=== PATIENT | female | born 1970 | race African-American/Black ===

== ENCOUNTER 2016-04-09 12:36 | Observation (INO) | payer OTHER ==
[2016-04-08 14:48] VITALS: Ht 165.1 cm; Wt 110.0 kg
[~2016-04-09] VITALS: Ht 165.1 cm; Wt 110.0 kg
[2016-04-09] VITALS (23 sets, daily range): BP systolic 121–190; BP diastolic 63–82; PULSE 58–106; RESP 14–33
[~2016-04-09 12:36] MED LIST: CEFAZOLIN 1 GM INJ ONE
[2016-04-09] MEDS ORDERED: SOD CHLORIDE 0.9% 1,000 ML IV ONE (13:30)
[2016-04-09] MEDS ORDERED: CEFAZOLIN 2 GM/50 ML (PMX) 50 ML IVPB ONE (13:30)
[2016-04-09] MEDS ORDERED: CALC300T4 PO (14:05)
[2016-04-09] MEDS ORDERED: DIPH25CA6 PO (14:05)
[2016-04-09 14:32] LABS: BASOPHILS % 0.6 % (0.0-2.0); EOSINOPHILS % 0.4 % (0.0-7.0); HEMATOCRIT 35.9 % (37.0-47.0); LYMPHOCYTES # 1.2 10^3/ul (0.8-2.9); LYMPHOCYTES % 19.8 % (15.0-51.0); MEAN CORPUSCULAR HEMOGLOBIN 28.6 pg (29.0-33.0); MEAN CORPUSCULAR HGB CONC 33.4 g/dl (32.0-37.0); MEAN CORPUSCULAR VOLUME 85.5 fl (82.0-101.0); MEAN PLATELET VOLUME 11.6 fl (7.4-10.4); MONOCYTE # 0.4 10^3/ul (0.3-0.9); MONOCYTES % 6.8 % (0.0-11.0); NEUTROPHIL # 4.4 10^3/ul (1.6-7.5); NEUTROPHILS % 72.4 % (39.0-77.0); PLATELET COUNT 191 10^3/UL (140-440); RED CELL DISTRIBUTION WIDTH 14.7 % (11.5-14.5); UNCORRECTED WBC 6.1 10^3/ul (4.8-10.8); WHITE BLOOD COUNT 6.1 10^3/ul (4.8-10.8)
[2016-04-09 14:39] LABS: CONDITION 1; LH ANALYZER COMMENTS 1
[2016-04-09 15:00] LABS: INR 0.94; PROTIME 12.6 Sec (12.2-14.2)
[2016-04-09 15:01] LABS: PARTIAL THROMBOPLASTIN TIME 30.6 Sec (25.0-35.0)
[2016-04-09 15:17] LABS: CALCIUM 9.6 mg/dl (8.4-10.2); CREATININE 0.88 mg/dl (0.44-1.00); POTASSIUM 4.5 mmol/L (3.5-5.1)
[2016-04-09] MEDS ORDERED: PROPOFOL 40 ML ONE (16:27)
[2016-04-09] MEDS ORDERED: ROCURONIUM 50 MG INJ ONE (16:27)
[2016-04-09] MEDS ORDERED: FENTAnyl 50 MCG/ML VIAL ONE ×3 (16:27→17:27)
[2016-04-09] MEDS ORDERED: MIDAZOLAM 1 MG/ML 2 ML INJ ONE (16:27)
[2016-04-09] MEDS ORDERED: ISOSULFAN BLUE 1% 5 ML INJ SC ONE (16:54)
[2016-04-09] MEDS ORDERED: DEXAMETHASONE 4 MG/ML 1 ML INJ ONE (16:57)
[2016-04-09] MEDS ORDERED: METOCLOPRAMIDE 10 MG INJ ONE (16:57)
[2016-04-09] MEDS ORDERED: ONDANSETRON 4 MG INJ ONE (16:57)
[2016-04-09] MEDS ORDERED: KETOROLAC 30 MG INJ ONE (16:58)
[2016-04-09] MEDS ORDERED: morphine (1 MG/ML) 10ML SYRINGE IV PRN ×3 (17:30)
[2016-04-09] MEDS ORDERED: HYDROmorphONE (0.2 MG/ML) 10ML SYG IV PRN (17:30)
[2016-04-09] MEDS ORDERED: DIPHENHYDRAMINE 50 MG INJ IV PRN ×2 (17:30→23:00)
[2016-04-09] MEDS ORDERED: ONDANSETRON 4 MG INJ IV PRN ×2 (17:30→18:30)
[2016-04-09] MEDS ORDERED: hydrALAzine 20 MG INJ ONE (17:33)
[2016-04-09] MEDS ORDERED: GLYCOPYRROLATE 0.4 MG INJ ONE ×2 (17:58→18:02)
[2016-04-09] MEDS ORDERED: NEOSTIGMINE 3 MG/3 ML SYRINGE ONE ×2 (17:58→18:02)
[2016-04-09] MEDS ORDERED: LABETALOL HCL 20MG INJ ONE (18:02)
[2016-04-09] MEDS ORDERED: NALOXONE (0.4 MG/ML) INJ ONE (18:04)
--- NOTE | 2016-04-09 18:11 | OPR ---
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 PROCEDURE PERFORMED: Left partial mastectomy with axillary dissection utilizing sentinel lymph node technique. SURGEON: González Pineda MD STREET WORKER: Felix Jaquez MD ANESTHESIA: General. ANESTHESIOLOGIST: Rahat Ashley MD INDICATIONS FOR PROCEDURE: The patient is an unfortunate 46-year-old female who presented with an a pproximately 3.5 cm mass in her left breast. Workup including biopsy revealed an invasive cancer. She was HER-2 negative and not a candidate for neoadjuvant chemotherapy. She was then counseled as to the need for immediate surgery. She consented and was scheduled for surgery. DESCRIPTION OF PROCEDURE: The patient was brought to the operating theater, placed under general an esthesia. The left breast and axillary region was prepped and draped in usual sterile fashion. Eleazar roximately 5 mL of 1% Lymphazurin blue dye was then injected peritumorally. The breast was gently m assaged for approximately 12 minutes. At this point, a 4 cm incision was made in the left axillary hairline. Subcutaneous tissue was dissected with cautery down through the clavipectoral fascia. Dy e-stained lymphatic was identified, traced to what appeared to be an enlarged sentinel node. There were additional enlarged lymph nodes in this area. Therefore, Dr. Pineda made the decision to resect additional nodes with the sentinel nodes with blunt dissection along the chest wall. The long thor acic nerve was identified and kept out of harm's way. More superiorly, the axillary vein and thorac odorsal neurovascular bundle were identified and kept out of harm's way. Node bearing tissue betwee n the 2 nerves was then meticulously dissected using the LigaSure device. Specimen was removed and sent for permanent pathologic analysis. The wound was irrigated. Minimal bleeding was controlled w ith cautery. A #10 Austrian Skinny-Balderas drain was then brought through the left mid axillary line, cut to size, laid within the axilla and secured in place with 2-0 nylon suture, and the skin was amaury pproximated with a 4-0 Vicryl suture in subcuticular fashion. Attention was then directed towards performing the partial mastectomy. The mass was palpable. It w as at approximately the 12 o'clock location. An approximately 5 to 6 cm incision was made directly over the large mass. Subcutaneous tissue was dissected with cautery. The skin edges were elevated with skin hooks. Wide circumferential dissection of the tissue associated with the mass then took p lace, taking great care to ensure adequate margin. The mass was elevated, transected, oriented, and sent for permanent pathologic analysis. The wound was then irrigated. Minimal bleeding was contro lled with cautery. Due to the large defect associated with the wound, Dr. Pineda made the decision t o place a drain within the wound cavity. A second drain was brought through the left mid axillary l ine into the wound. It was cut to size and laid within the wound. The drain was then secured in pl elizabeth with 2-0 nylon suture in standard fashion. The skin incision was then reapproximated with 4-0 V icryl suture in subcuticular fashion and Dermabond was applied to both incisions. The patient karen ated the procedure well. The estimated blood loss was 20 mL. There were no complications and the p atient was transported in stable condition to the recovery room. Dictated By: GONZÁLEZ DENNIS/CAYETANO Conf#: [id number] DID#: [id number]
[2016-04-09] MEDS: HYDROmorphONE (0.2 MG/ML) 10ML SYG IV PRN ×4 (18:30→18:51)
[2016-04-09] MEDS: D5W-0.45 NACL + KCL 20 MEQ 1,000 ML IV SCH (20:35)
[2016-04-09] MEDS ORDERED: VITAMIN A & D 5 GM OINT PACKET TOP ONE (20:37)
[2016-04-10] VITALS: BP 118/59; RESP 20
[2016-04-10] MEDS: D5W-0.45 NACL + KCL 20 MEQ 1,000 ML IV SCH ×2 (02:59→10:13)
[2016-04-10] MEDS: morphine 4 MG/ML VIAL IV PRN ×2 (03:00→08:02)
[2016-04-10 05:16] VITALS: BP 123/64; PULSE 63; RESP 18
[2016-04-10 07:46] VITALS: BP 122/64; RESP 18
[2016-04-10] MEDS ORDERED: DOCUSATE SODIUM 100 MG CAP PO SCH (09:00)
[2016-04-10] MEDS ORDERED: HYDROCODONE/APAP (5/325) TAB PO PRN ×2 (09:00)
[2016-04-10] MEDS ORDERED: CEPASTAT LOZENGE MT PRN (09:00)
[2016-04-10] MEDS ORDERED: HYDR-3498 PO (11:47)
--- NOTE | 2016-04-10 14:00 | HP ---
DATE OF ADMISSION: 04/09/2016 HISTORY OF PRESENT ILLNESS: The patient is an unfortunate 46-year-old female who presented with mas s in the left breast. Workup including biopsy revealed invasive cancer. The patient's HER-2 is fou nd to be negative. The patient was brought to the hospital and underwent a left partial mastectomy with axillary dissection utilizing sentinel lymph node technique by Dr. Pineda on 04/09/2016. The pa alondra had significant postoperative pain and was admitted for further evaluation and management to m edical/surgical floor. PAST MEDICAL HISTORY: Positive for a history of asthma. The patient used occasionally the rescue i nhaler after exercising. Currently denies any recent asthma attack. History of arthritis. PAST SURGICAL HISTORY: Status post abdominal hysterectomy and bilateral oophorectomy last year and status post tubal ligation many years ago. FAMILY HISTORY: The patient has a sister with history of breast cancer who was diagnosed at the age of 50. SOCIAL HISTORY: The patient is and lives with family. Denies any tobacco use, denies any a lcohol use, denies any illicit drug use. ALLERGIES: NO KNOWN ALLERGIES. MEDICATIONS ON ADMISSION: 1. Tums. 2. Benadryl p.r.n. for itching. 3. Multivitamins. REVIEW OF SYSTEMS: A 12-point review of systems negative unless what mentioned in the HPI. The pat ient postoperatively complaints of a sore throat and surgical pain at the left breast. PHYSICAL ASSESSMENT: GENERAL: Well-developed, obese, pleasant female in no acute distress. VITAL SIGNS: Temperature 98.5, pulse is 63, blood pressure is 122/64, respiratory rate 18, oxygen s aturation is 98% on room air. HEENT: Head is atraumatic, normocephalic. Pupils equal, round, reactive to light and accommodation . Oral mucosa is pink and moist. NECK: Supple. No cervical lymphadenopathy, no thyromegaly. PULMONARY: Lung sounds: Clear bilaterally. There are no rhonchi, wheezes, or rales noted. CARDIOVASCULAR: Normal S1, S2. No murmurs noted. CHEST: Status post surgery with a left axillary JOSE RAUL drain. ABDOMEN: Protuberant, soft, nondistended, nontender. Bowel sounds present. EXTREMITIES: There is no edema, clubbing, cyanosis. Pulses equal bilaterally 2+. SKIN: No rash, petechiae noted. NEUROLOGIC: The patient is awake, alert, and oriented x4. No focal deficits noted. Motor strength 5/5 in all extremities. LABORATORY DATA: On admission, CBC: White blood cells 6.1, hemoglobin 12.0, hematocrit 35.9, plate lets 191. Chemistry: Sodium is 144, potassium 4.5, chloride 102, carbon dioxide 30, anion gap 17, BUN is 15, creatinine 0.88, glucose 87, calcium 9.6. PT is 12.6, INR 0.94, aPTT is 30.6. ASSESSMENT AND PLAN: 1. Large invasive cancer of the left breast status post left partial mastectomy with axillary disse ction utilizing sentinel lymph node technique. 2. Asthma by history. 3. Arthritis history. The patient will be admitted to medical/surgical floor. Continue morphine and [place] p.r.n. for pain , Zofran p.r.n. for nausea. Will start the patient on Cepastat lozenges p.r.n. for sore throat. Ad [place] diet as patient tolerates. Incentive spirometer q.1 hour while patient is awake, continue seq uential compression device for deep venous thrombosis prophylaxis. Further recommendations based on clinical course. Plan of care discussed with Dr. Rascon. Dictated By: NEYDA JAVIER RESEARCH AND DEVELOPMENT RESEARCHER for THEO RASCON MD SR/NTS Conf#: [id number] DID#: [id number] CC: JANE RAZA MD;*EndCC*
--- NOTE | 2016-04-10 14:09 | PN ---
DATE: 04/10/2016 SUBJECTIVE: she feels okay, has tolerated his diet, has had a bowel movement. OBJECTIVE: VITAL SIGNS: Temperature 98.5, heart rate 63, and one episode of 101, respirations 18, blood pressure 123/64, saturation 99% on room air. ABDOMEN: Soft. J.P. drained 20 mL and 15 mL of serosanguineous fluid. ASSESSMENT: Postoperative cancer of the breast. The patient is feeling good. She is eating well and can be discharged home, to followup by Dr. Pineda in his office next week. Dictated By: GERHARD RUIZ MD PS/NTS Conf#: [id number] DID#: [id number] MTDD
--- NOTE | 2016-04-11 13:56 | DS ---
DATE OF ADMISSION: 04/09/2016 DATE OF DISCHARGE: 04/10/2016 FINAL DIAGNOSES: 1. Large invasive cancer of the left breast, status post left partial mastectomy with axillary diss ection utilizing sentinel lymph node technique. 2. Asthma by history. 3. Gastritis by history. BRIEF HISTORY: The patient is an unfortunate 46-year-old female, who presented with a mass in the l eft breast. Workup including biopsy revealed invasive cancer. The patient was brought to the [facility] and underwent left partial mastectomy with axillary dissection of the lymph node by Dr. Pineda, helena nd patient was admitted for further evaluation for significant postoperative pain that the patient experienced postoperatively. HOSPITAL COURSE: The patient was given [place] and morphine p.r.n. for pain and Zofran p.r.n. for brandan sea. DISCHARGE CONDITION: The patient was also given IV fluid and postoperative antibiotics. The patien t's condition improved. The patient's pain is well controlled. She was able to tolerate , and ambulate with no problems. The patient is discharged home. CONDITION ON DISCHARGE: Hemodynamically stable. ACTIVITY: As patient tolerates. DIET: Regular diet. DISCHARGE MEDICATIONS: The patient was given prescription for [place] p.r.n. for pain, continue on he r home medications of calcium carbonate and diphenhydramine p.r.n. for itching. The patient is inst ructed to follow up with Dr. Pineda in postoperative appointment next week. Plan of care was establi shed for this patient. Plan of care was discussed with Dr. Borja. Dictated By: NEYDA JAVIER FILM LIBRARY CLERK for THEO BORJA MD SR/NTS Conf#: [id number] DID#: [id number]
== END 2016-04-10 16:20 | disposition home or self-care (01) ==
LOC: SDS 12:36 → MS1 18:12 → SDS 20:17
PROVIDERS: ADMIT Internal Medicine; ATTEND Surgery Surgical Oncology
DX: C50.912 Malignant neoplasm of unspecified site of left female breast (principal); C77.3 Secondary and unspecified malignant neoplasm of axilla and upper limb lymph nodes
CPT/HCPCS: 19301; 38500; 38792; 80048; 85025; 85610; 85730; 88307; 96361; 96374; J0360; J0690; J1100; J1170; J1200; J1885; J2250; J2270; J2405; J2710; J2765; J3010; J3480; Z7500; Z7512; Z7610; G0378; J2310; Q9968

== ENCOUNTER 2016-05-31 12:43 | Inpatient (IN) | payer OTHER ==
[~2016-05-31] VITALS: Ht 166.4 cm; Wt 111.0 kg
[~2016-05-31 12:43] MED LIST changes: +CALC300T4 PO; -CEFAZOLIN 1 GM INJ ONE; +DIPH25CA6 PO; +HYDR-3498 PO
[2016-05-31] MEDS ORDERED: SOD CHLORIDE 0.9% 1,000 ML IV STA (13:20)
[2016-05-31] MEDS ORDERED: HYDROmorphONE 1 MG/ML SYG IV STA (13:20)
[2016-05-31] MEDS ORDERED: ONDANSETRON 4 MG INJ IV STA ×2 (13:20→14:15)
[2016-05-31] MEDS ORDERED: SOD CHLORIDE 0.9% 1,000 ML IV ONE (13:30)
[2016-05-31 14:20] LABS: ADD SCAN DIFF NO
[2016-05-31 14:24] LABS: ABNORMAL IP MESSAGE 1; HEMATOCRIT 37.4 % (37.0-47.0); HEMOGLOBIN 12.1 g/dl (12.0-16.0); MEAN CORPUSCULAR HEMOGLOBIN 27.8 pg (29.0-33.0); MEAN CORPUSCULAR HGB CONC 32.4 g/dl (32.0-37.0); MEAN PLATELET VOLUME 12.9 fl (7.4-10.4); PLATELET COUNT 257 10^3/UL (140-415); RED BLOOD COUNT 4.35 10^6/ul (4.20-5.40); RED CELL DISTRIBUTION WIDTH 14.3 % (11.5-14.5); WHITE BLOOD COUNT 28.8 10^3/ul (4.8-10.8)
[2016-05-31 15:35] LABS: EOSINOPHILS # 0.3 10^3/ul (0.0-0.5); LYMPHOCYTES # 2.6 10^3/ul (0.8-2.9); MONOCYTE # 0.3 10^3/ul (0.3-0.9); NEUTROPHIL # 24.2 10^3/ul (1.6-7.5)
[2016-05-31] MEDS ORDERED: LORAZEPAM 2 MG INJ IV ONE (16:00)
[2016-05-31] MEDS ORDERED: METOCLOPRAMIDE 10 MG INJ IV ONE (16:00)
[2016-05-31] MEDS ORDERED: DEXTROSE 5%-0.45% NACL 500 ML BAG IV ONE (16:00)
--- NOTE | 2016-05-31 16:21 | ERA ---
ER Documentation Chief Complaint Date/Time DATE: 05/31/16 TIME: 16:17 Chief Complaint N/V FOLLOWING CHEMO HPI Very pleasant and unfortunate 46-year-old female with a history of breast cancer on chemo. The patient had chemo approximately 4-5 days ago she was started on Neupogen. Since the initiation of this medication the patient has multiple complaints including intractable nausea and vomiting that is nonbloody nonbilious, diffuse body pains and body aches and abdominal cramping. She denies any fevers or chills, no pleuritic pain, no chest pain. ROS All systems reviewed and are negative except as per history of present illness. Medications Home Meds Active Scripts Hydrocodone Bit-Acetaminophen (Hydrocodone Bit-APAP) 5-325MG Tablet, 1 TAB PO Q4H Y for PAIN LEVEL 1-5, #30 TAB Prov:NEYDA JAVIER 04/10/16 Reported Medications Diphenhydramine Hcl* (Diphenhydramine Hcl*) 25 Mg Capsule, 25 MG PO Q6 Y for ITCHING, CAP 04/09/16 Calcium Carbonate* (Tums X-Str) 300 Mg Tab.chew, 300 MG PO, TAB.CHEW 04/09/16 Allergies Allergies: Coded Allergies: No Known Allergy (Unverified , 04/09/16) PMhx/Soc History of Surgery: Yes (CONCHA BSO) Anesthesia Reaction: No Hx Neurological Disorder: No Hx Respiratory Disorders: Yes (EXERCISED INDUCED ASTHMA) Hx Cardiac Disorders: No Hx Miscellaneous Medical Probl: Yes (right breast CA with mets- on chemo) Hx Alcohol Use: Yes (OCCASIONALY) Hx Substance Use: No Hx Tobacco Use: No FmHx Family History: No diabetes Physical Exam Vitals Vital Signs Date Time Temp Pulse Resp B/P Pulse Ox O2 Delivery O2 Flow Rate FiO2 05/31/16 12:56 98.6 84 18 128/73 99 Physical Exam General: Patient appears to be feeling ill with vomiting and retching Head: Normocephalic, atraumatic. Eyes: Pupils equally reactive, EOM intact ENT: Moist mucous membranes Neck: Supple, no lymphadenopathy Respiratory: Lungs clear bilaterally, no distress Cardiovascular: RRR, no murmurs, rubs, or gallops Abdominal: Soft, non-tender, non-distended, no peritoneal signs, no tenderness to McBurney's point : Deferred MSK: No edema, no unilateral swelling, 5/5 strength Neurologic: Alert and oriented, moving all extremities, normal speech, no focal weakness, no cerebellar signs Skin: No rash Psych: Normal mood Result Diagram: 05/31/16 1330 Results 24 hrs Laboratory Tests Test 05/31/16 13:30 Band Neutrophils % 5.0% Eosinophils # 0.310^3/ul Eosinophils % 1.0% Hematocrit 37.4% Hemoglobin 12.1g/dl Lymphocytes # 2.610^3/ul Lymphocytes % 9.0% Mean Corpuscular Hemoglobin 27.8pg Mean Corpuscular Hemoglobin Concent 32.4g/dl Mean Corpuscular Volume 86.0fl Mean Platelet Volume 12.9fl Monocytes # 0.310^3/ul Monocytes % 1.0% Neutrophils # 24.210^3/ul Neutrophils % 84.0% Platelet Count 04136^3/UL Red Blood Count 4.3510^6/ul Red Cell Distribution Width 14.3% White Blood Count 28.810^3/ul Current Medications Medications (Trade) Dose Ordered Sig/Liset Route PRN Reason Start Time Stop Time Status Last Admin Dose Admin Sodium Chloride (NS) 1,000 ml @ 1,000 mls/hr Q1H STAT IV 05/31/16 13:20 05/31/16 14:19 DC 05/31/16 13:37 Hydromorphone HCl (Dilaudid) 1 mg ONCE STAT IV 05/31/16 13:20 05/31/16 13:22 DC 05/31/16 13:37 Ondansetron HCl 4 mg 4 mg ONCE STAT IV 05/31/16 13:20 05/31/16 13:22 DC 05/31/16 13:37 Sodium Chloride (NS) 1,000 ml @ 1,000 mls/hr Q1H ONCE IV 05/31/16 13:30 05/31/16 14:29 DC 05/31/16 14:19 Ondansetron HCl (Zofran Inj) 4 mg ONCE STAT IV 05/31/16 14:15 05/31/16 14:16 DC 05/31/16 14:18 Metoclopramide HCl (Reglan) 10 mg ONCE ONCE IV 05/31/16 16:00 05/31/16 16:01 DC 05/31/16 15:52 Dextrose/Sodium Chloride (D5-1/2ns) 500 ml ONCE ONCE IV 05/31/16 16:00 05/31/16 16:01 DC 05/31/16 16:12 Lorazepam (Ativan) 1 mg ONCE ONCE IV 05/31/16 16:00 05/31/16 16:01 DC 05/31/16 16:12 Procedures/MDM LAB INTERPRETATION: Leukocytosis without significant shift that is likely secondary to Neupogen MEDICAL DECISION MAKING: The patient recently received chemotherapy and was initiated on Neupogen. The patient has multiple symptoms that are likely secondary to Neupogen including nausea vomiting, body pain and abdominal cramping. The patient also has leukocytosis but again the patient has no signs or symptoms concerning for infectious process. Her leukocytosis is very consistent with Neupogen initiation. This was confirmed with the patient's covering oncologist. I do not feel the patient requires advanced imaging, this is not consistent with acute intra-abdominal process, pulmonary embolism or sepsis. ER COURSE: The patient has received multiple doses of IV fluids, multiple doses of antiemetics including Zofran and Reglan. She has persistence of symptoms. She has been given pain medication. I was able to speak to the on-call oncologist Dr. Duggan. We discussed inpatient versus outpatient management. While I do not take admitting patient on chemotherapy lightly given her persistence of symptoms inpatient hospitalization may be necessary. Dr. Duggan agrees. He states that the patient's leukocytosis and symptoms are very consistent with Neupogen and agrees that the patient does not require infectious workup at this time. . The patient was then given Ativan and dextrose solution with slight improvement. I kept the patient and/or family informed of laboratory and diagnostic imaging results throughout the emergency room course. DISPOSITION PLAN: Medical surgical admission for management of intractable vomiting CONSULTATION: Accepting care team and consultations: I discussed the current laboratory data, diagnostic imaging and emergency care provided. Admitting team: Wanda Solomon Admitting team indication: Insurance directed, [facility] Consulting services: Oncology Dr. Duggan Departure Diagnosis: Primary Impression: Nausea and vomiting Qualified Code: R11.2 - Intractable vomiting with nausea, unspecified vomiting type Additional Impressions: Leukocytosis Qualified Code: D72.829 - Leukocytosis, unspecified type History of breast cancer Condition: AKILA Woody MD May 31, 2016 16:21
[2016-05-31 16:26] VITALS: TEMP 98.2
[2016-05-31 16:27] LABS: POTASSIUM 3.2 mmol/L (3.5-5.1)
[2016-05-31 16:30] LABS: CALCIUM 9.3 mg/dl (8.4-10.2); CREATININE 0.84 mg/dl (0.44-1.00)
[2016-05-31] MEDS ORDERED: ONDANSETRON 4 MG INJ IV PRN (16:30)
[2016-05-31] MEDS ORDERED: ACETAMINOPHEN 325 MG TAB PO PRN (16:30)
[2016-05-31 17:47] VITALS: BP 118/64; PULSE 69; RESP 16
[2016-05-31 17:49] VITALS: Ht 166.4 cm; Wt 111.0 kg
[2016-05-31] MEDS ORDERED: POTASSIUM CHLORIDE 250 ML IVPB ONE (18:00)
[2016-05-31] MEDS ORDERED: morphine 2 MG INJ IV PRN (18:00)
[2016-05-31] MEDS: DEXTROSE 5%-0.9% NACL 1,000 ML IV SCH (18:43)
[2016-05-31] MEDS: ONDANSETRON 4 MG INJ IV PRN (19:03)
[2016-05-31 20:35] VITALS: BP 124/71; RESP 16
[2016-06-01] MEDS: ONDANSETRON 4 MG INJ IV PRN ×2 (00:50→06:52)
[2016-06-01 05:06] LABS: ADD SCAN DIFF NO
[2016-06-01 05:17] LABS: ABNORMAL IP MESSAGE 1; HEMATOCRIT 32.6 % (37.0-47.0); HEMOGLOBIN 10.7 g/dl (12.0-16.0); MEAN CORPUSCULAR HEMOGLOBIN 28.2 pg (29.0-33.0); MEAN CORPUSCULAR HGB CONC 32.8 g/dl (32.0-37.0); MEAN PLATELET VOLUME 12.2 fl (7.4-10.4); PLATELET COUNT 235 10^3/UL (140-415); RED BLOOD COUNT 3.79 10^6/ul (4.20-5.40); RED CELL DISTRIBUTION WIDTH 14.6 % (11.5-14.5); WHITE BLOOD COUNT 23.4 10^3/ul (4.8-10.8)
[2016-06-01 05:37] LABS: ALBUMIN 3.3 g/dl (3.3-4.9)
[2016-06-01 05:38] LABS: POTASSIUM 3.5 mmol/L (3.5-5.1)
[2016-06-01 05:40] LABS: BILIRUBIN,INDIRECT 0.2 mg/dl (0-1.1); BILIRUBIN,TOTAL 0.2 mg/dl (0.2-1.3); CREATININE 0.72 mg/dl (0.44-1.00)
[2016-06-01 05:41] LABS: ALBUMIN/GLOBULIN RATIO 1.17; TOTAL PROTEIN 6.1 g/dl (6.1-8.1)
[2016-06-01 05:42] LABS: CALCIUM 8.6 mg/dl (8.4-10.2)
[2016-06-01] MEDS: PANTOPRAZOLE 40 MG INJ IV SCH (05:48)
[2016-06-01] MEDS: DEXTROSE 5%-0.9% NACL 1,000 ML IV SCH ×2 (07:20→20:09)
[2016-06-01 08:31] VITALS: BP 119/53; RESP 18
[2016-06-01] MEDS: ACETAMINOPHEN 325 MG TAB PO PRN ×2 (09:39→20:09)
[2016-06-01] MEDS ORDERED: ONDANSETRON INJ 8 MG in DEXTROSE 5% 50 ML IV PRN (10:00)
[2016-06-01 12:00] LABS: LYMPHOCYTES # 2.1 10^3/ul (0.8-2.9); MONOCYTE # 0.2 10^3/ul (0.3-0.9); NEUTROPHIL # 3.7 10^3/ul (1.6-7.5); PLATELET ESTIMATE PLT APPEAR ADEQUATE
--- NOTE | 2016-06-01 13:16 | CONS ---
Date/Time of Note Date/Time of Note DATE: 06/01/16 TIME: 13:00 Assessment/Plan Assessment/Plan Chief Complaint/Hosp Course 46yo BRCA negative female with essentially triple negative high risk T2No breast cancer of L breast s/p partial mastectomy s/p 1 dose of AC and 1 dose of Neulasta. -increase Zofran to 8mg IV q 6 hours prn nausea -continue fluids and electrolyte replacement -for next cycle of chemo will start Akynzeo as an antiemetic as well as scheduled hydration -given her chest pain, will order ECHO given patient was given Adriamycin -pt will need a port a cath in anticipation of more chemotherapy Approximately 40 min were spent at patient's bedside and in coordination of her care Problems: Consultation Date/Type/Reason Admit Date/Time May 31, 2016 at 16:29 Date of Consultation: Jun 01, 2016 Type of Consultation: oncology Reason for Consultation breast cancer Referring Provider: FAIZA MEJIA MD Hx of Present Illness 46 yo female with h/o CONCHA Mar 2015 for heavy menses who was found with an abnormal mammogram 02/2016. 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 Given her high risk feature. Patient underwent L partial mastectomy on 04/09/16 which revealed a T2 lesion. Given the high risk features she was started on chemotherapy on 05/28. She was given IV emend for nausea in addition to Adriamycin and Cytoxan. PT presents with shortness of breath, musculoskeletal pains and extreme nausea. She states she vomited over 5 times since yesterday. She still feels weak but her nausea is under slightly better control. Constitutional: poor po Eyes: no complaints ENT: no complaints Respiratory: pleuritic pain, shortness of breath Cardiovascular: lightheadedness Gastrointestinal: decreased appetite, nausea, vomiting Genitourinary: no complaints Musculoskeletal: bone/joint pain Skin: no complaints Neurologic: no complaints Past Medical History obesity Past Surgical History s/p L partial mastectomy Family History Significant Family History: other (maternal aunt with spleen and bran ca, maternal uncle with liver ca, cousin with breast ca in her 20's) Social History Alcohol Use: none Smoking Status: Never smoker Drug Use: none Exam/Review of Systems Vital Signs Vitals Vital Signs Date Time Temp Pulse Resp B/P Pulse Ox O2 Delivery O2 Flow Rate FiO2 06/01/16 08:31 98.3 71 18 119/53 96 05/31/16 17:47 Room Air Intake and Output 05/31/16 05/31/16 06/01/16 15:00 23:00 07:00 Intake Total 1000 ml 1000 ml 1130 ml Output Total 1600 ml Balance 1000 ml 1000 ml -470 ml Exam Constitutional: alert, distress, frail Psych: anxiety Head: normocephalic Eyes: nl conjunctiva ENMT: nl external ears & nose Neck: non-tender, supple Respiratory: clear to auscultation Cardiovascular: nl pulses, regular rate and rhythm Gastrointestinal: soft Musculoskeletal: nl extremities to inspection, nl gait and stance Extremities: normal pulses Results Result Diagram: 06/01/1644506/01/16445 Results 24 hrs Laboratory Tests Test 05/31/16 13:30 06/01/16 04:46 Anion Gap 13 14 Band Neutrophils % 5.0 74.0 H Blood Urea Nitrogen 12 8 Calcium Level 9.3 8.6 Carbon Dioxide Level 32 H 28 Chloride Level 95 L 101 Creatinine 0.84 0.72 Eosinophils # 0.3 Eosinophils % 1.0 Glucose Level 80 117 Hematocrit 37.4 32.6 L Hemoglobin 12.1 10.7 L Lymphocytes # 2.6 2.1 Lymphocytes % 9.0 L 9.0 L Mean Corpuscular Hemoglobin 27.8 L 28.2 L Mean Corpuscular Hemoglobin Concent 32.4 32.8 Mean Corpuscular Volume 86.0 86.0 Mean Platelet Volume 12.9 H 12.2 H Monocytes # 0.3 0.2 L Monocytes % 1.0 1.0 Neutrophils # 24.2 H 3.7 Neutrophils % 84.0 H 16.0 L Platelet Count 257 235 Potassium Level 3.2 L 3.5 Red Blood Count 4.35 3.79 L Red Cell Distribution Width 14.3 14.6 H Sodium Level 137 139 White Blood Count 28.8 #H 23.4 H Alanine Aminotransferase (ALT/SGPT) 32 Albumin 3.3 Albumin/Globulin Ratio 1.17 Alkaline Phosphatase 108 Aspartate Amino Transf (AST/SGOT) 19 Direct Bilirubin 0.00 Globulin 2.80 Indirect Bilirubin 0.2 Platelet Estimate PLT APPEAR ADEQUATE Total Bilirubin 0.2 Total Protein 6.1 Medications Medications Current Medications Dextrose/Sodium Chloride (D5-NS) 1,000 ml @ 75 mls/hr [id number] IV Last administered on 05/31/16 18:43; Admin Dose 75 MLS/HR; Start 05/31/16 at 18:00 Pantoprazole (Protonix Iv) 40 mg DAILY@06 IV Last administered on 06/01/16 05: 48; Admin Dose 40 MG; Start 06/01/16 at 06:00 Ondansetron HCl (Zofran Inj) 4 mg Q6H PRN IV NAUSEA AND/OR VOMITING Last administered on 06/01/16 06:52; Admin Dose 4 MG; Start 05/31/16 at 18:00 Morphine Sulfate (morphine) 2 mg Q4H PRN IV PAIN; Start 05/31/16 at 18:00 Acetaminophen 650 mg 650 mg Q6H PRN PO PAIN AND OR ELEVATED TEMP Last administered on 06/01/16 09:39; Admin Dose 650 MG; Start 05/31/16 at 18:00 Ondansetron HCl/ Dextrose (Zofran Inj/D5W) 54 ml @ 108 mls/hr Q6H PRN IV NAUSEA AND/OR VOMITING Last administered on 06/01/16 12:10; Admin Dose 108 MLS/ HR; Start 06/01/16 at 10:00 TONY LLANOS M.D. Jun 01, 2016 13:11
--- NOTE | 2016-06-01 16:26 | QN ---
Documentation Comment [id number] FAIZA MEJIA MD Jun 01, 2016 16:25
[2016-06-01 16:42] LABS: INR 0.91; PROTIME 12.2 Sec (12.2-14.2)
--- NOTE | 2016-06-01 18:30 | RADRPT ---
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 Physician: FAIZA MEJIA Quality: Good Procedures: Transthoracic echocardiogram with complete 2D, M-Mode, and doppler examination. Indications: Mitral Valve Prolapse. 2D/M Mode Doppler Measurement Value Normal Ranges Measurement Value Normal Ranges LVIDd 2D 4.6 3.5 - 5.6 cm AV Peak Wayne 1.6 m/sec LVIDs 2D 3.5 2.1 - 4.1 cm AV Peak PG 9.9 mmHg LVPWd 2D 1.1 0.6 - 1.1 cm LVOT Peak Wayne 1.1 m/sec IVSd 2D 1.1 0.6 - 1.1 cm LVOT Peak PG 4.7 mmHg AoR Diam 2D 2.6 2.0 - 3.7 cm MV E Peak Wayne 0.7 m/sec EDV 2D 98.3 cm3 MV A Peak Wayne 0.8 m/sec ESV 2D 41.8 cm3 MV E/A 0.9 LA Dimen 2D 3.5 2.3 - 4.0 cm MV Decel Time 219 msec MV Decel [place] 3 MV E/A 0.9 TR Peak Wayne 2.4 m/sec TR Peak PG 22.6 mmHg RVSP 26.0 mmHg Findings Left Ventricle: Normal left ventricular systolic function. Normal left ventricular cavity size. Mild concentric left ventricular hypertrophy. Ejection fraction is visually estimated at 5560 %. Tissue Doppler/Mitral Doppler indices are consistent with impaired relaxation (Stage I diastolic dysfunction). Right Ventricle: Normal right ventricular size. Normal right ventricular systolic function. Left Atrium: The left atrium is normal in size. Right Atrium: The right atrium is normal in size. Mitral Valve: Normal appearance and function of the mitral valve with trace physiologic regurgitation. Aortic Valve: Normal appearance of the aortic valve. No significant aortic stenosis or insufficiency. Tricuspid Valve: Normal appearance of the tricuspid valve. Estimated peak PA systolic pressure 26 mmHg. There is trace tricuspid regurgitation. Pulmonic Valve: Normal pulmonic valve appearance. Pericardium: Trivial pericardial effusion. Aorta: Normal aortic root. IVC: Normal size and normal respiratory collapse consistent with normal right atrial pressure. Conclusions 1.Normal left ventricular systolic function. Normal left ventricular cavity size. Mild concentric left ventricular hypertrophy. Ejection fraction is visually estimated at 55-60 %. Tissue Doppler/Mitral Doppler indices are consistent with impaired relaxation (Stage I diastolic dysfunction). 2.Normal right ventricular size. Normal right ventricular systolic function. 3.Normal appearance and function of the mitral valve with trace physiologic regurgitation. 4.Normal appearance of the tricuspid valve. Estimated peak PA systolic pressure 26 mmHg. There is trace tricuspid regurgitation. 5.Trivial pericardial effusion. Electronically Signed By: Terence Saleem 01-Jun-2016 18:29:45 -0700 Patient Name: KEZIA WHATLEY Study Date: 01-Jun-2016 [id number]
[2016-06-01 19:43] VITALS: BP 122/66; RESP 18
[2016-06-01] MEDS: LORAZEPAM 2 MG INJ IV PRN (23:36)
[2016-06-02] VITALS (10 sets, daily range): BP systolic 123–146; BP diastolic 59–76; PULSE 60–96; RESP 16–21
--- NOTE | 2016-06-02 01:02 | HP ---
DATE OF ADMISSION: 05/31/2016 HISTORY OF PRESENT ILLNESS: Esthela oPwers is a young 46-year-old female who has a history of lar ge invasive cancer of the left breast status post left partial mastectomy with axillary dissection u tilizing sentinel lymph node technique, history of osteoarthritis by history. The patient previousl y was discharged with diagnosis of large invasive cancer of the left breast status post left partial mastectomy with axillary dissection. The patient now presents with nausea, vomiting after receivin g chemotherapy and is being admitted for further management. PAST MEDICAL HISTORY: Left partial mastectomy with axillary dissection, status post chemotherapy, h istory of arthritis, and asthma. ALLERGY HISTORY: NEGATIVE. FAMILY HISTORY: History of cancer is positive. SOCIAL HISTORY: Negative. MEDICATION HISTORY: The patient is on: 1. Hydrocodone. 2. Calcium carbonate. 3. Diphenhydramine. REVIEW OF SYSTEMS: HEENT: Unremarkable. RESPIRATORY: Unremarkable. CARDIOVASCULAR: Unremarkable. ABDOMEN: Nausea, vomiting, abdominal pain after that. EXTREMITIES: Unremarkable. CENTRAL NERVOUS SYSTEM: Unremarkable. GENITOURINARY: Unremarkable. PHYSICAL EXAMINATION: GENERAL: Awake, alert, anxious. VITAL SIGNS: Stable with pulse 90, blood pressure 124/71. HEAD: Atraumatic, normocephalic. Pupils equal, reactive to light. NECK: Supple. No JVD. LUNGS: Clear. CARDIOVASCULAR: S1, S2 are normal. ABDOMEN: Soft, nontender. Bowel sounds present. No palpable mass. EXTREMITIES: No cyanosis, clubbing, edema. CENTRAL NERVOUS SYSTEM: The patient is awake and alert with no focal deficit. LABORATORY DATA: Shows patient has WBC 28.8, hematocrit 37.4, platelet count of 257. The patient's potassium 3.2, repeat 3.5. IMPRESSION: 1. Nausea, vomiting post chemotherapy and Neupogen. 2. Breast cancer. The patient status post partial left mastectomy. 3. Other diagnoses include hypokalemia, resolving. 4. Leukocytosis, post Neupogen. 5. Anemia. PLAN: Continue to give IV fluid, pain medication, as well as home medication. Follow recommendatio n from oncology. Follow electrolytes. Orders were done. Dictated By: FAIZA MEJIA MD BS/NTS Conf#: [id number] DID#: [id number]
--- NOTE | 2016-06-02 02:13 | RADRPT ---
PROCEDURE: US upper extremity Venous. CLINICAL INDICATION: Placement of central venous line. TECHNIQUE: Multiple sonographic images of the bilateral upper extremity venous system was obtained utilizing grayscale, color-flow, compressive sonography and doppler imaging with augmentation. Genaro dy is limited to examination of the bilateral internal jugular veins and subclavian veins, as per re quest of the referring physician. COMPARISON: None. FINDINGS: Study is limited to examination of the bilateral internal jugular and subclavian veins. There is no evident deep venous thrombosis. IMPRESSION: No deep venous thrombosis. RPTAT: [facility] Physician Shaila Date Time Electronically viewed and signed by Physician Shaila on 06/02/2016 02:13 RS/
[2016-06-02 05:46] LABS: ABNORMAL IP MESSAGE 1; ADD SCAN DIFF NO; BASOPHIL # 0.1 10^3/ul (0.0-0.1); BASOPHILS % 0.7 % (0.0-2.0); EOSINOPHILS # 0.1 10^3/ul (0.0-0.5); EOSINOPHILS % 0.8 % (0.0-7.0); HEMATOCRIT 31.7 % (37.0-47.0); HEMOGLOBIN 10.2 g/dl (12.0-16.0); LYMPHOCYTES # 0.9 10^3/ul (0.8-2.9); LYMPHOCYTES % 7.2 % (15.0-51.0); MEAN CORPUSCULAR HEMOGLOBIN 28.1 pg (29.0-33.0); MEAN CORPUSCULAR HGB CONC 32.2 g/dl (32.0-37.0); MEAN CORPUSCULAR VOLUME 87.3 fl (82.0-101.0); MEAN PLATELET VOLUME 12.8 fl (7.4-10.4); MONOCYTE # 0.3 10^3/ul (0.3-0.9); MONOCYTES % 2.4 % (0.0-11.0); NEUTROPHIL # 10.3 10^3/ul (1.6-7.5); NEUTROPHILS % 82.2 % (39.0-77.0); PLATELET COUNT 225 10^3/UL (140-415); RED BLOOD COUNT 3.63 10^6/ul (4.20-5.40); RED CELL DISTRIBUTION WIDTH 14.6 % (11.5-14.5); WHITE BLOOD COUNT 12.5 10^3/ul (4.8-10.8)
[2016-06-02 06:19] LABS: ALBUMIN/GLOBULIN RATIO 1.19
[2016-06-02] MEDS: PANTOPRAZOLE 40 MG INJ IV SCH (06:19)
[2016-06-02 06:25] LABS: ALBUMIN 3.1 g/dl (3.3-4.9); BILIRUBIN,INDIRECT 0.1 mg/dl (0-1.1); BILIRUBIN,TOTAL 0.1 mg/dl (0.2-1.3); CALCIUM 8.6 mg/dl (8.4-10.2); CREATININE 0.69 mg/dl (0.44-1.00); POTASSIUM 3.7 mmol/L (3.5-5.1); TOTAL PROTEIN 5.7 g/dl (6.1-8.1)
[2016-06-02] MEDS: ONDANSETRON 4 MG INJ IV PRN (08:41)
[2016-06-02] MEDS: DEXTROSE 5%-0.9% NACL 1,000 ML IV SCH ×2 (10:55→23:20)
[2016-06-02] MEDS ORDERED: HEPARIN 1000 UNITS/ML 10 ML INJ ONE (11:16)
[2016-06-02] MEDS ORDERED: LIDOCAINE 1% (MDV) 20 ML INJ ONE (11:16)
[2016-06-02] MEDS ORDERED: LIDOCAINE 1%/EPI (MDV) 20 ML INJ ONE (11:18)
[2016-06-02] MEDS ORDERED: POLYMYXIN/BACITRACIN 1L IRRIG IRR SCH (11:30)
[2016-06-02] MEDS ORDERED: CEFAZOLIN 1 GM/50 ML (PMX) 50 ML IVPB ONE (11:36)
[2016-06-02] MEDS ORDERED: FENTAnyl 50 MCG/ML VIAL ONE (11:36)
[2016-06-02] MEDS ORDERED: DIPHENHYDRAMINE 50 MG INJ ONE (11:36)
[2016-06-02] MEDS ORDERED: MIDAZOLAM 1 MG/ML 2 ML INJ ONE (11:36)
--- NOTE | 2016-06-02 13:25 | CONS ---
Date/Time of Note Date/Time of Note DATE: 06/02/16 TIME: 13:14 Assessment/Plan Assessment/Plan Chief Complaint/Hosp Course 46yo BRCA negative female with essentially triple negative high risk T2No breast cancer of L breast s/p partial mastectomy s/p 1 dose of AC and 1 dose of Neulasta. Pt has intractable nausea and vomiting despite the strong antiemetics used prior to chemotherapy # Nausea -cont Zofran to 8mg IV q 6 hours prn nausea -add reglan 10mg IV q 6 -Marc MRI to r/o brain mets as cause for nausea -continue fluids and electrolyte replacement -for next cycle of chemo will start Akynzeo as an antiemetic as well as scheduled hydration # Constipation -fleets enema ordered -Miralax, Senna, Colace ordered # Breast Cancer -ECHO Ok with EF 55% -port a cath to be placed today Approximately 40 min were spent at patient's bedside and in coordination of her care Problems: Consultation Date/Type/Reason Admit Date/Time May 31, 2016 at 16:29 Initial Consult Date 06/01/16 Type of Consultation: oncology Reason for Consultation breast cancer Referring Provider: FAIZA MEJIA MD 24 HR Interval Summary Free Text/Dictation pt still has intractable nausea and vomiting still even after zofran IV. c/o constipation. states she uses a fleets enema usually to relive her constipation Exam/Review of Systems Vital Signs Vitals Vital Signs Date Time Temp Pulse Resp B/P Pulse Ox O2 Delivery O2 Flow Rate FiO2 06/02/16 07:53 98.7 82 20 128/72 98 05/31/16 17:47 Room Air Intake and Output 06/01/16 06/01/16 06/02/16 15:00 23:00 07:00 Intake Total 940 ml 1275 ml Output Total 2700 ml Balance -1760 ml 1275 ml Exam Constitutional: distress Psych: anxiety, depression Head: normocephalic Eyes: nl conjunctiva ENMT: nl external ears & nose Neck: non-tender, supple Respiratory: clear to auscultation Cardiovascular: nl pulses, regular rate and rhythm Gastrointestinal: soft Musculoskeletal: nl extremities to inspection, nl gait and stance Extremities: normal pulses Results Result Diagram: 06/02/16 0435 06/02/16 0435 Results 24 hrs Laboratory Tests Test 06/01/16 16:15 06/02/16 04:35 INR International Normalized Ratio 0.91 Prothrombin Time 12.2 Prothrombin Time Ratio 1.0 Alanine Aminotransferase (ALT/SGPT) 25 Albumin 3.1 L Albumin/Globulin Ratio 1.19 Alkaline Phosphatase 118 Anion Gap 13 Aspartate Amino Transf (AST/SGOT) 15 Basophils # 0.1 Basophils % 0.7 Blood Urea Nitrogen 9 Calcium Level 8.6 Carbon Dioxide Level 29 Chloride Level 104 Creatinine 0.69 Direct Bilirubin 0.00 Eosinophils # 0.1 Eosinophils % 0.8 Globulin 2.60 Glucose Level 107 Hematocrit 31.7 L Hemoglobin 10.2 L Indirect Bilirubin 0.1 Lymphocytes # 0.9 Lymphocytes % 7.2 L Mean Corpuscular Hemoglobin 28.1 L Mean Corpuscular Hemoglobin Concent 32.2 Mean Corpuscular Volume 87.3 Mean Platelet Volume 12.8 H Monocytes # 0.3 Monocytes % 2.4 Neutrophils # 10.3 H Neutrophils % 82.2 H Nucleated Red Blood Cells # 0.0 Nucleated Red Blood Cells % 0.0 Platelet Count 225 Potassium Level 3.7 Red Blood Count 3.63 L Red Cell Distribution Width 14.6 H Sodium Level 142 Total Bilirubin 0.1 L Total Protein 5.7 L White Blood Count 12.5 #H Medications Medications Current Medications Dextrose/Sodium Chloride (D5-NS) 1,000 ml @ 75 mls/hr [id number] IV Last administered on 06/02/16 10:55; Admin Dose 75 MLS/HR; Start 05/31/16 at 18:00 Pantoprazole (Protonix Iv) 40 mg DAILY@06 IV Last administered on 06/02/16 06: 19; Admin Dose 40 MG; Start 06/01/16 at 06:00 Ondansetron HCl (Zofran Inj) 4 mg Q6H PRN IV NAUSEA AND/OR VOMITING Last administered on 06/02/16 08:41; Admin Dose 4 MG; Start 05/31/16 at 18:00 Morphine Sulfate (morphine) 2 mg Q4H PRN IV PAIN; Start 05/31/16 at 18:00 Acetaminophen 650 mg 650 mg Q6H PRN PO PAIN AND OR ELEVATED TEMP Last administered on 06/01/16 20:09; Admin Dose 650 MG; Start 05/31/16 at 18:00 Ondansetron HCl/ Dextrose (Zofran Inj/D5W) 54 ml @ 108 mls/hr Q6H PRN IV NAUSEA AND/OR VOMITING Last administered on 06/01/16 12:10; Admin Dose 108 MLS/ HR; Start 06/01/16 at 10:00 Lorazepam (Ativan) 1 mg Q6H PRN IV anxiety Last administered on 06/01/16 23:36 ; Admin Dose 1 MG; Start 06/01/16 at 22:30 Metoclopramide HCl (Reglan) 10 mg Q6 PRN IV NAUSEA; Start 06/02/16 at 13:30; Status UNV Sodium Biphosphate/ Sodium Phosphate (Fleet Enema) 133 ml PRN ONCE MA ; Start 06/02/16 at 13:30; Stop 06/02/16 at 13:31; Status UNV TONY LLANOS M.D. Jun 02, 2016 13:25
[2016-06-02] MEDS ORDERED: METOCLOPRAMIDE 10 MG INJ IV PRN (13:30)
[2016-06-02] MEDS ORDERED: POLYETHYLENE GLYCOL 17 GM PACKET GTB PRN (13:30)
[2016-06-02] MEDS ORDERED: NA PHOSPHATE/BIPHOS 133 ML ENEMA PR ONE (13:30)
--- NOTE | 2016-06-02 13:51 | RADRPT ---
PROCEDURE: FLUOROSCOPIC AND ULTRASONOGRAPHIC-GUIDED PLACEMENT OF RIGHT CHEST PORT. CLINICAL INDICATION: History of left breast cancer. Venous access for chemotherapy. TECHNIQUE: INTRAPROCEDURE MEDICATIONS: PB antibiotic solution 40 cc applied topically. 1 gram Ancef intravenous ly, intra-op. IV Versed and Fentanyl per protocol. Informed consent was obtained. The procedure, risks, benefits, complications and alternatives were explained to the patient. Risks including bleeding, infection, and pneumothorax were explained. The patient understood and was willing to proceed. A procedural pause was performed. The patient's name, date of , and procedure to be performed w ere verified. The central line was inserted with all elements of maximal sterile barrier technique. All of the fol lowing were used: head covering, facial mask, sterile gown, sterile gloves, a large sterile sheet, h and hygiene, and 2% chlorhexidine for cutaneous antisepsis. The right neck and anterior/superior chest wall were prepped and draped in usual sterile fashion. Limited sonography of the right neck was then performed. Noted is a patent right internal jugular ve in. Following the local injection of 1% lidocaine, the right internal jugular vein was punctured under s onographic guidance with a 20-gauge needle through which a 0.018 inch floppy tip guidewire was advan indigo into the superior vena cava with fluoroscopic guidance. The tract was dilated to 5 Yoruba and the wire was then replaced with a 0.035 in Amplatz guidewire. Serial dilatation was then performed and an 8.5 Yoruba peel away sheath was introduced. A site just inferior to the clavicle in the superior anterior right chest wall was localized. One pe rcent lidocaine was used as local anesthesia. A transverse 2.5 cm incision was made utilizing a 15 b lade scalpel. Utilizing blunt dissection a subcutaneous pocket was created inferior to the incision. The cavity was flushed with approximately 40 cc of PB antibiotic solution. The catheter was tunneled underneath the skin from the newly created pocket to the puncture site in the neck. The central line catheter was pulled through the tract. The catheter was then advanced thr ough the sheath until the tip was positioned in the right atrium. The peel-away sheath was removed. The catheter was flushed and clamped. The 8.0 Yoruba catheter was then connected to the Angiodynamics power port. The port was then placed into the pocket. Prior to closing the instrument and sponge count was verified and was correct. The subcutaneous tissue was closed with 3-0 Vicryl interrupted suture. The skin at the site of the pock et and in the neck was closed with 4-0 Vicryl suture in a running subcuticular technique. The port w as flushed with 1500 units of heparin in 1.5 cc utilizing a Mckeon needle. The needle was removed. A dressing was applied. The patient tolerated procedure well. COMPARISON: None. FINDINGS: Ultrasound images were recorded and stored in the patient's medical record. Final radiographic images demonstrate the tip of the catheter in the upper right atrium. A total of 0.3 minutes of fluoroscopy time was used. The ultrasound images demonstrate the needle entering th e internal jugular vein. IMPRESSION: 1. Successful ultrasonographic and fluoroscopic guided placement of right chest power port. RPTAT: QQ .Sujit Samuels MD, MD Date Time Electronically viewed and signed by .Sujit Samuels MD, on 06/02/2016 13:51 .R/
--- NOTE | 2016-06-02 13:51 | RADRPT ---
PROCEDURE: Ultrasound guidance for placement of needle in right internal jugular vein. CLINICAL INDICATION: Venous access. TECHNIQUE: Prior to the procedure, informed consent was obtained. Risks including bleeding, infection, and pneu mothorax were explained to the patient. The patient understood and was willing to proceed. A procedu ral pause was performed. The patient's name, date of , and procedure to be performed were verif ied. The central line was inserted with all elements of maximal sterile barrier technique. All of th e following were used: head covering, facial mask, sterile gown, sterile gloves, a large sterile she et, hand hygiene, and 2% chlorhexidine for cutaneous antisepsis. The right neck and anterior/super ior chest wall was prepped and draped in usual sterile fashion. Limited sonography of the right neck was then performed. Noted is a patent right internal jugular ve in. Ultrasound images were recorded and stored in the patient's medical record. Following the local injection of Xylocaine, the right internal jugular vein was punctured under sono graphic guidance with a 20-gauge needle through which a 0.018 inch floppy tip guidewire was advanced into the superior vena cava. The patient tolerated the procedure well. The remainder of the proce dure was performed and dictated under separate cover. COMPARISON: None. FINDINGS: The ultrasound images demonstrate a patent right internal jugular vein. The subsequent images demon strate the needle entering the right internal jugular vein. IMPRESSION: 1. Ultrasound guidance for a needle placement in right internal jugular vein. RPTAT: QQ .Sujit Samuels MD, Date Time Electronically viewed and signed by .Sujit Samuels MD, on 06/02/2016 13:51 .R/
[2016-06-02] MEDS: SENNA TAB PO SCH (21:23)
[2016-06-02] MEDS: LORAZEPAM 2 MG INJ IV PRN (21:23)
[2016-06-02] MEDS: DOCUSATE SODIUM 100 MG CAP PO SCH (21:23)
--- NOTE | 2016-06-02 23:26 | PN ---
Date/Time of Note Date/Time of Note DATE: 06/02/16 TIME: 23:26 Assessment/Plan VTE Prophylaxis VTE Prophylaxis Intervention: other Lines/Catheters IV Catheter Type (from Nrs): Peripheral IV Assessment/Plan Chief Complaint/Hosp Course IMPRESSION: 1. Nausea, vomiting post chemotherapy and Neupogen. 2. Breast cancer. The patient status post partial left mastectomy. 3. Other diagnoses include hypokalemia, resolving. 4. Leukocytosis, post Neupogen. 5. Anemia. plan po diet per dr abdi Problems: Subjective 24 Hr Interval Summary Cardiovascular: no complaints Gastrointestinal: no complaints Genitourinary: no complaints Exam/Review of Systems Vital Signs Vitals Vital Signs Date Time Temp Pulse Resp B/P Pulse Ox O2 Delivery O2 Flow Rate FiO2 06/02/16 19:56 98.2 91 20 124/59 98 06/02/16 13:15 Nasal Cannula 2.0 Intake and Output 06/01/16 06/01/16 06/02/16 15:00 23:00 07:00 Intake Total 940 ml 1275 ml Output Total 2700 ml Balance -1760 ml 1275 ml Exam Neck: supple Respiratory: clear to auscultation Cardiovascular: regular rate and rhythm Gastrointestinal: soft Musculoskeletal: nl extremities to inspection Results Result Diagram: 06/02/1643406/02/16 0435 Results 24 hrs Laboratory Tests Test 06/02/16 04:35 Alanine Aminotransferase (ALT/SGPT) 25 Albumin 3.1 L Albumin/Globulin Ratio 1.19 Alkaline Phosphatase 118 Anion Gap 13 Aspartate Amino Transf (AST/SGOT) 15 Basophils # 0.1 Basophils % 0.7 Blood Urea Nitrogen 9 Calcium Level 8.6 Carbon Dioxide Level 29 Chloride Level 104 Creatinine 0.69 Direct Bilirubin 0.00 Eosinophils # 0.1 Eosinophils % 0.8 Globulin 2.60 Glucose Level 107 Hematocrit 31.7 L Hemoglobin 10.2 L Indirect Bilirubin 0.1 Lymphocytes # 0.9 Lymphocytes % 7.2 L Mean Corpuscular Hemoglobin 28.1 L Mean Corpuscular Hemoglobin Concent 32.2 Mean Corpuscular Volume 87.3 Mean Platelet Volume 12.8 H Monocytes # 0.3 Monocytes % 2.4 Neutrophils # 10.3 H Neutrophils % 82.2 H Nucleated Red Blood Cells # 0.0 Nucleated Red Blood Cells % 0.0 Platelet Count 225 Potassium Level 3.7 Red Blood Count 3.63 L Red Cell Distribution Width 14.6 H Sodium Level 142 Total Bilirubin 0.1 L Total Protein 5.7 L White Blood Count 12.5 #H Medications Medications Current Medications Dextrose/Sodium Chloride (D5-NS) 1,000 ml @ 75 mls/hr [id number] IV Last administered on 06/02/16 10:55; Admin Dose 75 MLS/HR; Start 05/31/16 at 18:00 Pantoprazole (Protonix Iv) 40 mg DAILY@06 IV Last administered on 06/02/16 06: 19; Admin Dose 40 MG; Start 06/01/16 at 06:00 Ondansetron HCl (Zofran Inj) 4 mg Q6H PRN IV NAUSEA AND/OR VOMITING Last administered on 06/02/16 08:41; Admin Dose 4 MG; Start 05/31/16 at 18:00 Morphine Sulfate (morphine) 2 mg Q4H PRN IV PAIN; Start 05/31/16 at 18:00 Acetaminophen 650 mg 650 mg Q6H PRN PO PAIN AND OR ELEVATED TEMP Last administered on 06/01/16 20:09; Admin Dose 650 MG; Start 05/31/16 at 18:00 Ondansetron HCl/ Dextrose (Zofran Inj/D5W) 54 ml @ 108 mls/hr Q6H PRN IV NAUSEA AND/OR VOMITING Last administered on 06/01/16 12:10; Admin Dose 108 MLS/ HR; Start 06/01/16 at 10:00 Lorazepam (Ativan) 1 mg Q6H PRN IV anxiety Last administered on 06/02/16 21:23 ; Admin Dose 1 MG; Start 06/01/16 at 22:30 Metoclopramide HCl (Reglan) 10 mg Q6 PRN IV NAUSEA; Start 06/02/16 at 13:30 Polyethylene Glycol (Miralax) 8.5 gm DAILY PRN GTB CONSTIPATION; Start at 13:30 Docusate Sodium (Colace) 100 mg BID PO Last administered on 06/02/16 21:23; Admin Dose 100 MG; Start 06/02/16 at 21:00 Senna (Senokot) 1 tab BID PO Last administered on 06/02/16 21:23; Admin Dose 1 TAB; Start 3/21/17 at 21:00 FAIZA MEJIA MD Jun 02, 2016 23:26
[2016-06-03] MEDS: PANTOPRAZOLE 40 MG INJ IV SCH (05:21)
[2016-06-03 07:00] VITALS: BP 138/74; RESP 20
[2016-06-03] MEDS: DEXTROSE 5%-0.9% NACL 1,000 ML IV SCH (07:30)
[2016-06-03] MEDS: DOCUSATE SODIUM 100 MG CAP PO SCH ×2 (08:43→21:24)
[2016-06-03] MEDS: SENNA TAB PO SCH ×2 (08:43→21:24)
--- NOTE | 2016-06-03 12:41 | PDOCDIS ---
Discharge Instructions CONDITION Patient Condition: Good HOME CARE INSTRUCTIONS: Special Diet: npo for procedure ACTIVITY: Activity Restrictions: Slowly Increase Activity FOLLOW UP/APPOINTMENTS Appointments f/u own pcp [address] abdi 1 wk FAIZA MEJIA MD Jun 03, 2016 12:41
[2016-06-03] MEDS ORDERED: POLY17PO6 GTB (12:42)
[2016-06-03] MEDS ORDERED: PANT40TA3 PO (12:42)
[2016-06-03] MEDS ORDERED: METO10TA92 PO (12:42)
--- NOTE | 2016-06-03 13:29 | CONS ---
Date/Time of Note Date/Time of Note DATE: 06/03/16 TIME: 13:27 Assessment/Plan Assessment/Plan Chief Complaint/Hosp Course 46yo BRCA negative female with essentially triple negative high risk T2No breast cancer of L breast s/p partial mastectomy s/p 1 dose of AC and 1 dose of Neulasta. Pt has intractable nausea and vomiting despite the strong antiemetics used prior to chemotherapy # Nausea -cont Zofran to 8mg IV q 6 hours prn nausea -cont Reglan 10mg IV q 6 -Marc MRI to r/o brain mets as cause for nausea; pending -continue fluids and electrolyte replacement -for next cycle of chemo will start Akynzeo as an antiemetic as well as scheduled hydration # Breast Cancer -ECHO Ok with EF 55% -port a cath placed 06/02/16 Problems: Consultation Date/Type/Reason Admit Date/Time May 31, 2016 at 16:29 Initial Consult Date 06/01/16 Type of Consultation: Oncology Referring Provider: FAIZA MEJIA MD 24 HR Interval Summary Free Text/Dictation Patient states nausea improved. She has not had emesis since yesterday and is able to start eating. Exam/Review of Systems Vital Signs Vitals Vital Signs Date Time Temp Pulse Resp B/P Pulse Ox O2 Delivery O2 Flow Rate FiO2 06/03/16 07:00 98.3 79 20 138/74 97 06/02/16 13:15 Nasal Cannula 2.0 Intake and Output 06/02/16 06/02/16 06/03/16 15:00 23:00 07:00 Intake Total 600 ml 700 ml Output Total 300 ml 450 ml Balance 300 ml 250 ml Exam Constitutional: distress Psych: anxiety, depression Head: normocephalic Eyes: nl conjunctiva ENMT: nl external ears & nose Neck: non-tender, supple Respiratory: clear to auscultation Cardiovascular: nl pulses, regular rate and rhythm Gastrointestinal: soft Musculoskeletal: nl extremities to inspection, nl gait and stance Extremities: normal pulses Results Result Diagram: 06/02/1643406/02/16434 Medications Medications Current Medications Dextrose/Sodium Chloride (D5-NS) 1,000 ml @ 75 mls/hr [id number] IV Last administered on 06/03/16t 07:30; Admin Dose 75 MLS/HR; Start 05/31/16 at 18:00 Ondansetron HCl (Zofran Inj) 4 mg Q6H PRN IV NAUSEA AND/OR VOMITING Last administered on 06/02/16 08:41; Admin Dose 4 MG; Start 05/31/16 at 18:00 Morphine Sulfate (morphine) 2 mg Q4H PRN IV PAIN Last administered on 08:43; Admin Dose 2 MG; Start 05/31/16 at 18:00 Acetaminophen 650 mg 650 mg Q6H PRN PO PAIN AND OR ELEVATED TEMP Last administered on 06/01/16 20:09; Admin Dose 650 MG; Start 05/31/16 at 18:00 Ondansetron HCl/ Dextrose (Zofran Inj/D5W) 54 ml @ 108 mls/hr Q6H PRN IV NAUSEA AND/OR VOMITING Last administered on 06/01/16 12:10; Admin Dose 108 MLS/ HR; Start 06/01/16 at 10:00 Lorazepam (Ativan) 1 mg Q6H PRN IV anxiety Last administered on 06/02/16 21:23 ; Admin Dose 1 MG; Start 06/01/16 at 22:30 Metoclopramide HCl (Reglan) 10 mg Q6 PRN IV NAUSEA Last administered on 08:43; Admin Dose 10 MG; Start 06/02/16 at 13:30 Polyethylene Glycol (Miralax) 8.5 gm DAILY PRN GTB CONSTIPATION Last administered on 06/03/16 12:04; Admin Dose 8.5 GM; Start 06/02/16 at 13:30 Docusate Sodium (Colace) 100 mg BID PO Last administered on 06/03/16 08:43; Admin Dose 100 MG; Start 06/02/16 at 21:00 Senna (Senokot) 1 tab BID PO Last administered on 06/03/16 08:43; Admin Dose 1 TAB; Start 06/02/16 at 21:00 Pantoprazole (Protonix Tab) 40 mg DAILY@06 PO ; Start 06/04/16 at 06:00 SERGEY BOWSER MD Jun 03, 2016 13:29
--- NOTE | 2016-06-03 14:35 | RADRPT ---
PROCEDURE: MR BRAIN WITHOUT AND WITH CONTRAST CLINICAL INDICATION: History of breast cancer. Intractable vomiting. TECHNIQUE: An MRI of the brain was performed on a [employer] short bore, high definition, 1.5 monty [employer] utilizing the following sequences: Sagittal T1, axial FSE T2, axial FLAIR, axial gradient echo, axial T1 and axial EPI diffusion (b1000) with ADC maps as well as axial, sagittal, and coronal T1 we ighted images after the administration of 10 cc of Magnevist contrast material. . COMPARISON: No prior studies are available for comparison. FINDINGS: There is mild prominence of the ventricles consistent with mild atrophy. There is no evidence for m ass-effect or midline shift. There is no intracranial space occupying lesion. There are no intracra nial areas of abnormal signal intensity. There is no evidence for restricted diffusion to suggest an acute vascular event. There are no intracranial areas of abnormal enhancement. The visualized paran tricia sinuses are normal. IMPRESSION: 1. Mild atrophy. 2. Otherwise normal MRI of the brain without and with contrast. 3. No evidence of metastatic disease. .Sujit Samuels MD, MD Date Time Electronically viewed and signed by .Sujit Samuels MD, on 06/03/2016 14:35 .R/
[2016-06-03] MEDS: ACETAMINOPHEN 325 MG TAB PO PRN (18:59)
[2016-06-03 20:06] VITALS: BP 140/78; RESP 18
[2016-06-03] MEDS: LORAZEPAM 2 MG INJ IV PRN (21:35)
--- NOTE | 2016-06-03 22:48 | PN ---
Date/Time of Note Date/Time of Note DATE: 06/03/16 TIME: 22:47 Assessment/Plan VTE Prophylaxis VTE Prophylaxis Intervention: other Lines/Catheters IV Catheter Type (from Nrs): PORT-A-CATH Assessment/Plan Chief Complaint/Hosp Course IMPRESSION: 1. Nausea, vomiting post chemotherapy and Neupogen.better 2. Breast cancer. The patient status post partial left mastectomy. 3. Other diagnoses include hypokalemia, resolving. 4. Leukocytosis, post Neupogen. 5. Anemia. plan po diet per dr abdi home Problems: Subjective 24 Hr Interval Summary Gastrointestinal: no complaints Genitourinary: no complaints Exam/Review of Systems Vital Signs Vitals Vital Signs Date Time Temp Pulse Resp B/P Pulse Ox O2 Delivery O2 Flow Rate FiO2 06/03/16 20:06 97.7 78 18 140/78 97 06/02/16 13:15 Nasal Cannula 2.0 Intake and Output 06/02/16 06/02/16 06/03/16 15:00 23:00 07:00 Intake Total 600 ml 700 ml Output Total 300 ml 450 ml Balance 300 ml 250 ml Exam Respiratory: clear to auscultation Cardiovascular: regular rate and rhythm Gastrointestinal: soft Musculoskeletal: nl extremities to inspection Extremities: normal pulses Results Result Diagram: 06/02/16 0435 06/02/16 0435 Medications Medications Current Medications Dextrose/Sodium Chloride (D5-NS) 1,000 ml @ 75 mls/hr [id number] IV Last administered on 06/03/16 07:30; Admin Dose 75 MLS/HR; Start 05/31/16 at 18:00 Ondansetron HCl (Zofran Inj) 4 mg Q6H PRN IV NAUSEA AND/OR VOMITING Last administered on 06/02/16 08:41; Admin Dose 4 MG; Start 05/31/16 at 18:00 Morphine Sulfate (morphine) 2 mg Q4H PRN IV PAIN Last administered on 08:43; Admin Dose 2 MG; Start 05/31/16 at 18:00 Acetaminophen 650 mg 650 mg Q6H PRN PO PAIN AND OR ELEVATED TEMP Last administered on 06/03/16 18:59; Admin Dose 650 MG; Start 05/31/16 at 18:00 Ondansetron HCl/ Dextrose (Zofran Inj/D5W) 54 ml @ 108 mls/hr Q6H PRN IV NAUSEA AND/OR VOMITING Last administered on 06/01/16 12:10; Admin Dose 108 MLS/ HR; Start 06/01/16 at 10:00 Lorazepam (Ativan) 1 mg Q6H PRN IV anxiety Last administered on 06/03/16 21:35 ; Admin Dose 1 MG; Start 06/01/16 at 22:30 Metoclopramide HCl (Reglan) 10 mg Q6 PRN IV NAUSEA Last administered on 08:43; Admin Dose 10 MG; Start 06/02/16 at 13:30 Polyethylene Glycol (Miralax) 8.5 gm DAILY PRN GTB CONSTIPATION Last administered on 06/03/16 12:04; Admin Dose 8.5 GM; Start 06/02/16 at 13:30 Docusate Sodium (Colace) 100 mg BID PO Last administered on 06/03/16 21:24; Admin Dose 100 MG; Start 06/02/16 at 21:00 Senna (Senokot) 1 tab BID PO Last administered on 06/03/16 21:24; Admin Dose 1 TAB; Start 06/02/16 at 21:00 Pantoprazole (Protonix Tab) 40 mg DAILY@06 PO ; Start 06/04/16 at 06:00 FAIZA MEJIA MD Jun 03, 2016 22:48
[2016-06-04] MEDS: DEXTROSE 5%-0.9% NACL 1,000 ML IV SCH ×2 (05:22→15:20)
[2016-06-04] MEDS: ACETAMINOPHEN 325 MG TAB PO PRN (05:30)
[2016-06-04] MEDS ORDERED: PANTOPRAZOLE (EC) 40 MG TAB PO SCH (06:00)
[2016-06-04 08:23] VITALS: BP 108/58; RESP 18
[2016-06-04] MEDS: DOCUSATE SODIUM 100 MG CAP PO SCH (09:07)
[2016-06-04] MEDS: SENNA TAB PO SCH (09:07)
[2016-06-04] MEDS: ONDANSETRON 4 MG INJ IV PRN ×2 (09:07→17:26)
--- NOTE | 2016-06-04 13:32 | CONS ---
Date/Time of Note Date/Time of Note DATE: 06/04/16 TIME: 13:32 Assessment/Plan Assessment/Plan Chief Complaint/Hosp Course 46yo BRCA negative female with essentially triple negative high risk T2No breast cancer of L breast s/p partial mastectomy s/p 1 dose of AC and 1 dose of Neulasta. Pt has intractable nausea and vomiting despite the strong antiemetics used prior to chemotherapy # Nausea/vomiting, resolved/improved. Ok to discharge home with anti-emetics and f/u with me next week. -cont Zofran to 8mg IV q 6 hours prn nausea -cont Reglan 10mg IV q 6 -Marc MRI 06/03/16 showed mild atrophy, otherwise normal MRI of the brain without and with contrast. No evidence of metastatic disease. -continue fluids and electrolyte replacement -for next cycle of chemo will start Akynzeo as an antiemetic as well as scheduled hydration # Breast Cancer -ECHO Ok with EF 55% -port a cath placed 06/02/16 Problems: Consultation Date/Type/Reason Admit Date/Time May 31, 2016 at 16:29 Initial Consult Date 06/01/16 Type of Consultation: Oncology Referring Provider: FAIZA MEJIA MD 24 HR Interval Summary Free Text/Dictation No further vomiting. Patient feels better and will be going home today. Exam/Review of Systems Vital Signs Vitals Vital Signs Date Time Temp Pulse Resp B/P Pulse Ox O2 Delivery O2 Flow Rate FiO2 06/04/16 08:23 97.8 61 18 108/58 96 06/02/16 13:15 Nasal Cannula 2.0 Intake and Output 06/03/16 06/03/16 06/04/16 15:00 23:00 07:00 Intake Total 1800 ml 1150 ml Output Total 1200 ml Balance 1800 ml -50 ml Exam Constitutional: alert, oriented Psych: no complaints Head: normocephalic Neck: non-tender, supple Respiratory: clear to auscultation Cardiovascular: regular rate and rhythm Gastrointestinal: non-tender, soft Musculoskeletal: nl extremities to inspection Results Result Diagram: 06/02/16 0435 06/02/16 0435 Medications Medications Current Medications Dextrose/Sodium Chloride (D5-NS) 1,000 ml @ 75 mls/hr [id number] IV Last administered on 06/04/16t 05:22; Admin Dose 75 MLS/HR; Start 05/31/16 at 18:00 Ondansetron HCl (Zofran Inj) 4 mg Q6H PRN IV NAUSEA AND/OR VOMITING Last administered on 06/04/16 09:07; Admin Dose 4 MG; Start 05/31/16 at 18:00 Morphine Sulfate (morphine) 2 mg Q4H PRN IV PAIN Last administered on 08:43; Admin Dose 2 MG; Start 05/31/16 at 18:00 Acetaminophen 650 mg 650 mg Q6H PRN PO PAIN AND OR ELEVATED TEMP Last administered on 06/04/16 05:30; Admin Dose 650 MG; Start 05/31/16 at 18:00 Ondansetron HCl/ Dextrose (Zofran Inj/D5W) 54 ml @ 108 mls/hr Q6H PRN IV NAUSEA AND/OR VOMITING Last administered on 06/01/16 12:10; Admin Dose 108 MLS/ HR; Start 06/01/16 at 10:00 Lorazepam (Ativan) 1 mg Q6H PRN IV anxiety Last administered on 06/03/16 21:35 ; Admin Dose 1 MG; Start 06/01/16 at 22:30 Metoclopramide HCl (Reglan) 10 mg Q6 PRN IV NAUSEA Last administered on 08:43; Admin Dose 10 MG; Start 06/02/16 at 13:30 Polyethylene Glycol (Miralax) 8.5 gm DAILY PRN GTB CONSTIPATION Last administered on 06/03/16 12:04; Admin Dose 8.5 GM; Start 06/02/16 at 13:30 Docusate Sodium (Colace) 100 mg BID PO Last administered on 06/04/16 09:07; Admin Dose 100 MG; Start 06/02/16 at 21:00 Senna (Senokot) 1 tab BID PO Last administered on 06/04/16 09:07; Admin Dose 1 TAB; Start 06/02/16 at 21:00 Pantoprazole (Protonix Tab) 40 mg DAILY@06 PO Last administered on 06/04/16 05 :22; Admin Dose 40 MG; Start 06/04/16 at 06:00 SERGEY BOWSER MD Jun 04, 2016 13:32
[2016-06-04] MEDS ORDERED: HEPARIN (100 UNITS/ML) 5 ML SYG CATHETER ONE (17:00)
--- NOTE | 2016-06-07 11:58 | RADRPT ---
Vent Rate: 59 bpm RR Interval: 0 msec [place] Interval: 142 msec QRS Duration: 96 msec QT Interval: 412 msec QTC Interval: 407 msec P-R-T Gaines: 51 - 19 - 20 degrees Sinus bradycardia Minimal voltage criteria for LVH, may be normal variant Borderline ECG No previous tracing available for comparison Electronically Signed By: Reji Carrillo [id number]
== END 2016-06-04 17:49 | disposition home or self-care (01) | DRG 392 ==
LOC: FTE 12:43 → MS1 16:29
PROVIDERS: ADMIT Internal Medicine Nephrology; ATTEND Internal Medicine Nephrology
DX: R11.2 Nausea with vomiting, unspecified (principal); C50.912 Malignant neoplasm of unspecified site of left female breast; E87.6 Hypokalemia; K59.00 Constipation, unspecified; D64.9 Anemia, unspecified; T45.1X5A Adverse effect of antineoplastic and immunosuppressive drugs, initial encounter; Y92.019 Unspecified place in single-family (private) house as the place of occurrence of the external cause; Z17.1 Estrogen receptor negative status [ER-]
CPT/HCPCS: 36415; 36561; 70552; 76942; 80048; 80053; 85025; 85610; 93005; 93306; 93970; 96361; 96374; 96375; 96376; C1788; C9113; J0690; J1170; J1200; J1642; J1644; J2060; J2250; J2270; J2405; J2765; J3010; J3480; J7030; J7042

== ENCOUNTER 2016-06-13 13:46 | Inpatient (IN) | payer OTHER ==
[~2016-06-13] VITALS: Ht 167.6 cm; Wt 110.3 kg
[~2016-06-13 13:46] MED LIST changes: +METO10TA92 PO; +PANT40TA3 PO; +POLY17PO6 GTB
[2016-06-13] MEDS ORDERED: ONDANSETRON 4 MG INJ IV STA (14:48)
[2016-06-13] MEDS ORDERED: SOD CHLORIDE 0.9% 1,000 ML IV STA (14:48)
[2016-06-13] MEDS ORDERED: LORAZEPAM 2 MG INJ IV ONE (15:00)
[2016-06-13] MEDS ORDERED: DEXTROSE 5%-0.45% NACL 500 ML BAG IV ONE (15:00)
[2016-06-13] MEDS ORDERED: LIDOCAINE 2% VISC 15 ML CUP PO ONE (15:00)
--- NOTE | 2016-06-13 15:26 | ERA ---
ER Documentation Chief Complaint Date/Time DATE: 06/13/16 TIME: 15:23 Chief Complaint NAUSEA VOMITING X 3 DAYS FOLLOWING CHEMO TREATMENT HPI 46-year-old female history of breast cancer on chemo therapy who presents with nausea and vomiting 3 days status post chemotherapy treatment. She describes persistent nonbloody nonbilious emesis with mild cramping epigastric abdominal discomfort during this timeframe. No fevers or chills. No headache. No rash, no neck stiffness. Patient has failed repeat visits to oncology clinic for IV fluids. ROS All systems reviewed and are negative except as per history of present illness. Medications Home Meds Active Scripts Pantoprazole* (Protonix*) 40 Mg Tablet.dr, 40 MG PO DAILY for 14 Days, TAB Prov:ELLIOTT BEE MD 06/03/16 Metoclopramide* (Reglan*) 10 Mg Tablet, 10 MG PO AC MEALS for 14 Days, TAB Prov:ELLIOTT BEE MD 06/03/16 Polyethylene Glycol* (Miralax*) 17 Gm Powd.pack, 8.5 GM GTB DAILY Y for CONSTIPATION for 10 Days Prov:ELLIOTT BEE MD 06/03/16 Hydrocodone Bit-Acetaminophen (Hydrocodone Bit-APAP) 5-325MG Tablet, 1 TAB PO Q4H Y for PAIN LEVEL 1-5, #30 TAB Prov:NEYDA JAVIER 04/10/16 Reported Medications Diphenhydramine Hcl* (Diphenhydramine Hcl*) 25 Mg Capsule, 25 MG PO Q6 Y for ITCHING, CAP 04/09/16 Calcium Carbonate* (Tums X-Str) 300 Mg Tab.chew, 300 MG PO, TAB.CHEW 04/09/16 Allergies Allergies: Coded Allergies: No Known Allergy (Unverified , 06/13/16) PMhx/Soc History of Surgery: Yes (2015 - CONCHA Partial Left Mastectomy Apr.09) Anesthesia Reaction: No Hx Neurological Disorder: No Hx Respiratory Disorders: No Hx Cardiac Disorders: No Hx Psychiatric Problems: No Hx Miscellaneous Medical Probl: No Hx Alcohol Use: Yes (OCCASIONALY) Hx Substance Use: No Hx Tobacco Use: No FmHx Family History: No diabetes Physical Exam Vitals Vital Signs Date Time Temp Pulse Resp B/P Pulse Ox O2 Delivery O2 Flow Rate FiO2 06/13/16 13:49 114 18 130/80 99 Physical Exam General: Uncomfortable appearing female Head: Normocephalic, atraumatic. Eyes: Pupils equally reactive, EOM intact ENT: Dry mucous membranes Neck: Supple, no lymphadenopathy Respiratory: Lungs clear bilaterally, no distress Cardiovascular: RRR, no murmurs, rubs, or gallops Abdominal: Soft, non-tender, non-distended, no peritoneal signs : Deferred MSK: No edema, no unilateral swelling, 5/5 strength Neurologic: Alert and oriented, moving all extremities, normal speech, no focal weakness, no cerebellar signs Skin: No rash Psych: Normal mood Result Diagram: 06/13/16 1459 06/13/16 1459 Results 24 hrs Laboratory Tests Test 06/13/16 14:59 White Blood Count 41.010^3/ul Red Blood Count 3.7510^6/ul Hemoglobin 10.9g/dl Hematocrit 32.5% Mean Corpuscular Volume 86.7fl Mean Corpuscular Hemoglobin 29.1pg Mean Corpuscular Hemoglobin Concent 33.5g/dl Red Cell Distribution Width 14.8% Platelet Count 21656^3/UL Mean Platelet Volume 11.4fl Neutrophils % 90.0% Band Neutrophils % 5.0% Lymphocytes % 4.0% Monocytes % % Eosinophils % % Metamyelocytes % 1.0% Neutrophils # 36.910^3/ul Lymphocytes # 1.610^3/ul Monocytes # 10^3/ul Eosinophils # 10^3/ul Metamyelocytes # 0.4 Platelet Estimate PLT APPEAR ADEQUATE Macrocytosis OCCASIONAL Sodium Level 136mmol/L Potassium Level 3.6mmol/L Chloride Level 101mmol/L Carbon Dioxide Level 27mmol/L Anion Gap 12 Blood Urea Nitrogen 10mg/dl Creatinine 0.68mg/dl Glucose Level 114mg/dl Calcium Level 9.4mg/dl Current Medications Medications (Trade) Dose Ordered Sig/Liset Route PRN Reason Start Time Stop Time Status Last Admin Dose Admin Sodium Chloride (NS) 1,000 ml @ 1,000 mls/hr Q1H STAT IV 06/13/16 14:48 06/13/16 15:47 DC 06/13/16 15:08 Ondansetron HCl (Zofran Inj) 4 mg ONCE STAT IV 06/13/16 14:48 06/13/16 14:50 DC 06/13/16 15:08 Lorazepam (Ativan) 1 mg ONCE ONCE IV 06/13/16 15:00 06/13/16 15:01 DC 06/13/16 15:08 Lidocaine (Xylocaine (Viscous)) 15 ml ONCE ONCE PO 06/13/16 15:00 06/13/16 15:01 DC 06/13/16 15:22 Dextrose/Sodium Chloride (D5-1/2ns) 500 ml ONCE ONCE IV 06/13/16 15:00 06/13/16 15:01 DC 06/13/16 15:25 Metoclopramide HCl (Reglan) 20 mg Q6 IV 06/13/16 18:00 06/13/16 18:00 DC Ondansetron HCl (Zofran Inj) 8 mg Q8 IV 06/13/16 22:00 Metoclopramide HCl (Reglan) 20 mg Q6 IV 06/13/16 16:25 06/13/16 16:37 Ondansetron HCl (Zofran Inj) 4 mg BRIDGE ORDER PRN IV NAUSEA AND/OR VOMITING 06/13/16 17:00 06/14/16 16:59 Acetaminophen (Tylenol Tab) 650 mg ER BRIDGE PRN PO MILD PAIN/FEVER 06/13/16 17:00 06/14/16 16:59 Procedures/MDM LAB INTERPRETATION: Leukocytosis secondary to Neulasta MEDICAL DECISION MAKING: The patient presents with persistent nausea and vomiting status post chemotherapy. This is likely adverse reaction secondary to chemotherapy. The patient has no signs or symptoms concerning for acute intra-abdominal process. No evidence of serious bacterial infection. No fever. Patient has failed outpatient therapy. I believe inpatient hospitalization would be most appropriate. ER COURSE: Patient has been provided IV fluids, IV dextrose solution, Zofran, Ativan. Her oncologist recommends Reglan 20 mg IV every 6 hours and Zofran 8 mg IV every 8 hours which has worked for the patient in the past. The patient will be hospitalized for further management and hydration. I kept the patient and/or family informed of laboratory and diagnostic imaging results throughout the emergency room course. DISPOSITION PLAN: Medical surgical admission for management of persistent nausea and vomiting CONSULTATION: Accepting care team and consultations: I discussed the current laboratory data, diagnostic imaging and emergency care provided. Admitting team: Dr. Elliott Bee Admitting team indication: Insurance directed, [facility] Consulting services: Hematology oncology Dr. Jason was kind enough to come to the patient's bedside and evaluate the patient Departure Diagnosis: Primary Impression: Nausea and vomiting Qualified Code: R11.2 - Intractable vomiting with nausea, unspecified vomiting type Additional Impression: History of breast cancer Condition: AKILA Woody MD Jun 13, 2016 15:26
--- NOTE | 2016-06-13 15:28 | CONS ---
Date/Time of Note Date/Time of Note DATE: 06/13/16 TIME: 15:20 Assessment/Plan Assessment/Plan Chief Complaint/Hosp Course 46yo BRCA negative female with essentially triple negative high risk T2No breast cancer of L breast s/p partial mastectomy s/p 2 dose of AC given on 05/31 followed by 1 dose of Neulasta and 2 more days of IV hydration -start Zofran to 8mg IV q 6 hours prn nausea -continue fluids and electrolyte replacement -may need to change our chemotherapy regimen as the Adriamycin is likely the cause of her intractable nausea and vomiting. will consider taxotere instead -ot will need akynzeo and IV hydration with next cycle as well Approximately 40 min were spent at patient's bedside and in coordination of her care Problems: Consultation Date/Type/Reason Admit Date/Time June 13, 2016 Date of Consultation: Jun 13, 2016 Type of Consultation: oncology Reason for Consultation nausea and vomiting from chemotherapy Referring Provider: PATRICIO CASEY of Present Illness 46 yo female with h/o CONCHA Mar 2015 for heavy menses who was found with an abnormal mammogram 02/2016. 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 Given her high risk feature. Patient underwent L partial mastectomy on 04/09/16 which revealed a T2N0 lesion. Given the high risk features she was started on chemotherapy on 05/28. She was given IV emend for nausea in addition to Adriamycin and Cytoxan. After her first cycle she was admitted with intractable nausea and vomiting. Unfortunately after her 2nd cycle which was given 3 days ago, she again presents with body aches and intractable nausea and vomiting. She received Akynzeo, a very potent antiemetic as well as 3 days of IV hydration with the chemotherapy but unfortunately her nausea and vomiting persisted. Constitutional: diaphoresis, poor po Eyes: no complaints ENT: no complaints Respiratory: no complaints Cardiovascular: no complaints Gastrointestinal: decreased appetite, nausea, vomiting Genitourinary: no complaints Musculoskeletal: back pain, bone/joint pain Skin: no complaints Neurologic: no complaints Past Surgical History L partial mastectomy Family History Significant Family History: other (maternal aunt with spleen and bran ca, maternal uncle with liver ca, cousin with breast ca in her 20's) Social History Alcohol Use: none Smoking Status: Never smoker Drug Use: none Exam/Review of Systems Vital Signs Vitals Vital Signs Date Time Temp Pulse Resp B/P Pulse Ox O2 Delivery O2 Flow Rate FiO2 06/13/16 13:49 114 18 130/80 99 Exam Constitutional: distress, frail Psych: anxiety, depression Head: normocephalic Eyes: nl conjunctiva ENMT: nl external ears & nose Neck: non-tender, supple Respiratory: clear to auscultation, normal air movement Cardiovascular: nl pulses, regular rate and rhythm Gastrointestinal: soft Musculoskeletal: nl extremities to inspection, nl gait and stance Medications Medications Current Medications Metoclopramide HCl (Reglan) 20 mg Q6 IV ; Start 06/13/16 at 18:00 Ondansetron HCl (Zofran Inj) 8 mg Q8 IV ; Start 06/13/16 at 22:00 TONY LLANOS M.D. Jun 13, 2016 15:28
[2016-06-13 15:49] LABS: ADD SCAN DIFF NO
[2016-06-13 15:51] LABS: ABNORMAL IP MESSAGE 1; HEMATOCRIT 32.5 % (37.0-47.0); HEMOGLOBIN 10.9 g/dl (12.0-16.0); MEAN CORPUSCULAR HEMOGLOBIN 29.1 pg (29.0-33.0); MEAN CORPUSCULAR HGB CONC 33.5 g/dl (32.0-37.0); MEAN CORPUSCULAR VOLUME 86.7 fl (82.0-101.0); MEAN PLATELET VOLUME 11.4 fl (7.4-10.4); PLATELET COUNT 166 10^3/UL (140-415); RED BLOOD COUNT 3.75 10^6/ul (4.20-5.40); RED CELL DISTRIBUTION WIDTH 14.8 % (11.5-14.5)
[2016-06-13 16:01] LABS: POTASSIUM 3.6 mmol/L (3.5-5.1)
[2016-06-13 16:03] LABS: CREATININE 0.68 mg/dl (0.44-1.00)
[2016-06-13 16:04] LABS: CALCIUM 9.4 mg/dl (8.4-10.2)
[2016-06-13] MEDS ORDERED: METOCLOPRAMIDE 10 MG INJ IV SCH ×2 (16:25→18:00)
[2016-06-13 16:46] LABS: LYMPHOCYTES # 1.6 10^3/ul (0.8-2.9); NEUTROPHIL # 36.9 10^3/ul (1.6-7.5)
[2016-06-13 16:47] LABS: PLATELET ESTIMATE PLT APPEAR ADEQUATE
[2016-06-13] MEDS ORDERED: ONDANSETRON 4 MG INJ IV PRN (17:00)
[2016-06-13] MEDS ORDERED: ACETAMINOPHEN 325 MG TAB PO PRN (17:00)
[2016-06-13] MEDS ORDERED: ONDA8TAB9 PO (17:19)
[2016-06-13] MEDS ORDERED: LORA0.5T PO (17:21)
[2016-06-13 18:26] VITALS: PULSE 106; TEMP 98.6
[2016-06-13 18:45] VITALS: BP 144/69; RESP 20
[2016-06-13 20:41] VITALS: BP 133/71; RESP 20
[2016-06-13] MEDS ORDERED: LORAZEPAM 0.5 MG TAB PO PRN (21:30)
[2016-06-13] MEDS ORDERED: ONDANSETRON 4 MG INJ IV SCH (22:00)
[2016-06-13] MEDS: DEXTROSE 5%-0.9% NACL 1,000 ML IV SCH (22:14)
[2016-06-13] MEDS: METOCLOPRAMIDE 10 MG INJ IV PRN (22:14)
[2016-06-14] MEDS: ACETAMINOPHEN 325 MG TAB PO PRN ×3 (04:16→20:42)
[2016-06-14] MEDS: ONDANSETRON 4 MG INJ IV PRN ×3 (04:17→20:41)
[2016-06-14 04:35] VITALS: Ht 167.6 cm; Wt 110.3 kg
[2016-06-14] MEDS: PANTOPRAZOLE 40 MG INJ IV SCH (05:21)
[2016-06-14 06:15] LABS: ADD SCAN DIFF NO
[2016-06-14 06:33] LABS: ABNORMAL IP MESSAGE 1; HEMATOCRIT 28.2 % (37.0-47.0); MEAN CORPUSCULAR HEMOGLOBIN 27.8 pg (29.0-33.0); MEAN CORPUSCULAR HGB CONC 31.9 g/dl (32.0-37.0); MEAN PLATELET VOLUME 12.4 fl (7.4-10.4); PLATELET COUNT 158 10^3/UL (140-415); RED BLOOD COUNT 3.24 10^6/ul (4.20-5.40); WHITE BLOOD COUNT 22.3 10^3/ul (4.8-10.8)
[2016-06-14 06:37] LABS: POTASSIUM 3.1 mmol/L (3.5-5.1)
[2016-06-14 06:39] LABS: ALBUMIN/GLOBULIN RATIO 1.11; BILIRUBIN,INDIRECT 0.1 mg/dl (0-1.1); BILIRUBIN,TOTAL 0.1 mg/dl (0.2-1.3); CREATININE 0.57 mg/dl (0.44-1.00); TOTAL PROTEIN 5.7 g/dl (6.1-8.1)
[2016-06-14 07:38] VITALS: BP 114/73; RESP 20
[2016-06-14] MEDS: METOCLOPRAMIDE 10 MG INJ IV PRN (08:48)
[2016-06-14 09:21] LABS: LYMPHOCYTES # 1.1 10^3/ul (0.8-2.9); MONOCYTE # 0.9 10^3/ul (0.3-0.9); NEUTROPHIL # 19.6 10^3/ul (1.6-7.5)
[2016-06-14] MEDS ORDERED: POTASSIUM CHLORIDE 250 ML IVPB ONE (10:00)
[2016-06-14] MEDS: DOCUSATE SODIUM 100 MG CAP PO SCH ×2 (10:38→20:31)
[2016-06-14] MEDS: POLYETHYLENE GLYCOL 17 GM PACKET PO PRN (13:28)
[2016-06-14] MEDS: DEXTROSE 5%-0.9% NACL 1,000 ML IV SCH ×2 (17:30→20:32)
--- NOTE | 2016-06-14 18:00 | QN ---
Documentation Comment [id number] FAIZA MEJIA MD Jun 14, 2016 18:00
--- NOTE | 2016-06-14 18:14 | HP ---
DATE OF ADMISSION: 06/13/2016 HISTORY OF PRESENT ILLNESS: The patient with history of BRCA-negative T2N0 breast cancer of the left breast status post partial mastectomy is receiving chemotherapy. The patient has history of Port-A-Cath replacement. Echo done in the past shows 56% to 55% ejection fraction. Now patient is admitted for post chemo nausea, vomiting and headache. The patient has similar complaints in the past which resolved. Blood pressure, 114/73, WBC 41.0, hematocrit of 32.5, platelet count of 166, repeat _, hematocrit 28.2, platelet count of 158, potassium 3.1, is going to be replaced, earlier 3.6. PAST MEDICAL HISTORY: History of breast cancer, history of Port-A-Cath placement, status post chemotherapy. ALLERGY HISTORY: NEGATIVE. FAMILY HISTORY: Noncontributory. SOCIAL HISTORY: Negative. MEDICATION HISTORY: Patient is on: 1. Calcium carbonate. 2. Diphenhydramine. 3. Lorazepam. 4. Reglan 5. Zofran. REVIEW OF SYSTEMS HEENT: Complaining of no headache. RESPIRATORY: Unremarkable. CARDIOVASCULAR: Unremarkable. ABDOMEN: Nausea, vomiting, and poor p.o. intake. EXTREMITIES: Unremarkable. PHYSICAL EXAMINATION: GENERAL: The patient is awake, alert. VITAL SIGNS: Stable with pulse 93, blood pressure 140/69. HEAD: Atraumatic, normocephalic. Pupils equal, reactive to light. NECK: Supple. No JVD. LUNGS: Clear. CARDIOVASCULAR: S1, S2 normal. ABDOMEN: Soft, nontender. Bowel sounds present. No palpable mass or hepatosplenomegaly. No guarding, rebound tenderness. EXTREMITIES: There is no cyanosis, clubbing, or edema. CENTRAL NERVOUS SYSTEM: The patient is awake, alert with no focal deficit. LABORATORY DATA: As mentioned above. IMPRESSION: 1. Status post chemotherapy, now patient has nausea, vomiting and abdominal pain. 2. The patient has a history of breast cancer, status post partial mastectomy. 3. The patient also has hypokalemia. PLAN: To continue IV fluid, potassium supplementation. Check laboratory data per Dr. Jason and Dr. Dockery. Dictated By: FAIZA MEJIA MD BS/NTS Conf#: [id number] DID#: [id number] MTDD
[2016-06-14 20:57] VITALS: BP 115/70; RESP 16
[2016-06-15] MEDS ORDERED: CEPASTAT LOZENGE MT PRN (06:00)
[2016-06-15 06:08] LABS: ADD SCAN DIFF NO
[2016-06-15 06:17] LABS: ABNORMAL IP MESSAGE 1; BASOPHIL # 0.1 10^3/ul (0.0-0.1); BASOPHILS % 0.9 % (0.0-2.0); EOSINOPHILS % 0.6 % (0.0-7.0); HEMATOCRIT 29.9 % (37.0-47.0); HEMOGLOBIN 9.8 g/dl (12.0-16.0); LYMPHOCYTES # 0.5 10^3/ul (0.8-2.9); LYMPHOCYTES % 7.7 % (15.0-51.0); MEAN CORPUSCULAR HEMOGLOBIN 28.5 pg (29.0-33.0); MEAN CORPUSCULAR HGB CONC 32.8 g/dl (32.0-37.0); MEAN CORPUSCULAR VOLUME 86.9 fl (82.0-101.0); MEAN PLATELET VOLUME 11.1 fl (7.4-10.4); MONOCYTE # 0.2 10^3/ul (0.3-0.9); MONOCYTES % 3.2 % (0.0-11.0); NEUTROPHIL # 5.2 10^3/ul (1.6-7.5); NEUTROPHILS % 80.5 % (39.0-77.0); PLATELET COUNT 182 10^3/UL (140-415); RED BLOOD COUNT 3.44 10^6/ul (4.20-5.40); RED CELL DISTRIBUTION WIDTH 14.7 % (11.5-14.5); WHITE BLOOD COUNT 6.5 10^3/ul (4.8-10.8)
[2016-06-15 06:23] LABS: ALBUMIN 3.7 g/dl (3.3-4.9)
[2016-06-15 06:24] LABS: POTASSIUM 4.3 mmol/L (3.5-5.1)
[2016-06-15 06:26] LABS: CREATININE 0.75 mg/dl (0.44-1.00)
[2016-06-15 06:27] LABS: ALBUMIN/GLOBULIN RATIO 1.27; CALCIUM 8.9 mg/dl (8.4-10.2); TOTAL PROTEIN 6.6 g/dl (6.1-8.1)
[2016-06-15] MEDS: PANTOPRAZOLE 40 MG INJ IV SCH (06:44)
[2016-06-15] MEDS: LORAZEPAM 2 MG INJ IV PRN ×2 (06:44→22:10)
[2016-06-15] MEDS: ONDANSETRON 4 MG INJ IV PRN ×3 (06:44→22:10)
[2016-06-15 07:34] VITALS: BP 118/71; RESP 20
[2016-06-15] MEDS: DOCUSATE SODIUM 100 MG CAP PO SCH ×2 (09:30→20:51)
[2016-06-15] MEDS: POLYETHYLENE GLYCOL 17 GM PACKET PO PRN (09:30)
[2016-06-15] MEDS: DEXTROSE 5%-0.9% NACL 1,000 ML IV SCH ×2 (11:55→23:57)
--- NOTE | 2016-06-15 12:18 | CONS ---
Date/Time of Note Date/Time of Note DATE: 06/15/16 TIME: 12:15 Assessment/Plan Assessment/Plan Chief Complaint/Hosp Course 46yo BRCA negative female with essentially triple negative high risk T2No breast cancer of L breast s/p partial mastectomy s/p 2nd cycle of AC with Akynzeo given on 06/10 followed by 1 dose of Neulasta and 2 more days of IV hydration, admitted for intractable N/V, now improved. -continue Zofran to 8mg IV q 6 hours prn nausea -continue fluids and electrolyte replacement -will consider giving next cycle of chemotherapy as inpatient given repeated hospitalizations vs. changing to TC -will need akynzeo and IV hydration with next cycle as well Problems: Consultation Date/Type/Reason Admit Date/Time Jun 13, 2016 at 16:36 Initial Consult Date 06/13/16 Type of Consultation: Oncology Referring Provider: PATRICIO CASEY 24 HR Interval Summary Free Text/Dictation Patient states that nausea is much improved, no vomiting. Exam/Review of Systems Vital Signs Vitals Vital Signs Date Time Temp Pulse Resp B/P Pulse Ox O2 Delivery O2 Flow Rate FiO2 06/15/16 07:34 98.5 82 20 118/71 97 06/13/16 18:26 Room Air Intake and Output 06/14/16 06/14/16 06/15/16 15:00 23:00 07:00 Intake Total 2580 ml 900 ml Output Total 0 ml Balance 2580 ml 900 ml Exam Constitutional: alert, oriented Head: normocephalic Eyes: nl conjunctiva Neck: supple Respiratory: clear to auscultation Cardiovascular: regular rate and rhythm Gastrointestinal: soft Musculoskeletal: nl extremities to inspection Results Result Diagram: 06/15/16 0600 06/15/16 0606 Results 24 hrs Laboratory Tests Test 06/15/16 06:00 06/15/16 06:06 White Blood Count 6.5 # Red Blood Count 3.44 L Hemoglobin 9.8 L Hematocrit 29.9 L Mean Corpuscular Volume 86.9 Mean Corpuscular Hemoglobin 28.5 L Mean Corpuscular Hemoglobin Concent 32.8 Red Cell Distribution Width 14.7 H Platelet Count 182 Mean Platelet Volume 11.1 H Neutrophils % 80.5 H Lymphocytes % 7.7 L Monocytes % 3.2 Eosinophils % 0.6 Basophils % 0.9 Nucleated Red Blood Cells % 0.0 Neutrophils # 5.2 Lymphocytes # 0.5 L Monocytes # 0.2 L Eosinophils # 0.0 Basophils # 0.1 Nucleated Red Blood Cells # 0.0 Sodium Level 137 Potassium Level 4.3 Chloride Level 105 Carbon Dioxide Level 27 Anion Gap 9 # Blood Urea Nitrogen 11 Creatinine 0.75 Glucose Level 120 Calcium Level 8.9 Total Bilirubin 0.0 L Direct Bilirubin 0.00 Indirect Bilirubin 0.0 Aspartate Amino Transf (AST/SGOT) 26 Alanine Aminotransferase (ALT/SGPT) 29 Alkaline Phosphatase 170 #H Total Protein 6.6 Albumin 3.7 Globulin 2.90 Albumin/Globulin Ratio 1.27 Medications Medications Current Medications Dextrose/Sodium Chloride (D5-NS) 1,000 ml @ 75 mls/hr [id number] IV Last administered on 06/15/16 11:55; Admin Dose 75 MLS/HR; Start 06/13/16 at 21:30 Pantoprazole (Protonix Iv) 40 mg DAILY@06 IV Last administered on 06/15/16 06: 44; Admin Dose 40 MG; Start 06/14/16 at 06:00 Acetaminophen (Tylenol Tab) 650 mg Q6H PRN PO PAIN AND OR ELEVATED TEMP Last administered on 06/14/16 20:42; Admin Dose 650 MG; Start 06/13/16 at 21:30 Metoclopramide HCl (Reglan) 10 mg Q6 PRN IV NAUSEA Last administered on 08:48; Admin Dose 10 MG; Start 06/13/16 at 21:30 Ondansetron HCl (Zofran Inj) 4 mg Q6H PRN IV NAUSEA AND/OR VOMITING Last administered on 06/15/16 06:44; Admin Dose 4 MG; Start 06/13/16 at 21:30 Lorazepam (Ativan) 0.5 mg Q8H PRN PO ANXIETY Last administered on 06/14/16 22: 49; Admin Dose 0.5 MG; Start 06/13/16 at 21:30 Polyethylene Glycol (Miralax) 17 gm DAILY PRN PO CONSTIPATION Last administered on 06/15/16 09:30; Admin Dose 17 GM; Start 06/14/16 at 10:00 Docusate Sodium (Colace) 100 mg BID PO Last administered on 06/15/16 09:30; Admin Dose 100 MG; Start 06/14/16 at 10:00 Phenol (Cepastat Lozenge) 1 lozenge Q1H PRN MT DRY MOUTH; Start 06/15/16 at 06: 00 Lorazepam (Ativan) 1 mg Q6H PRN IV AGITATION/ANXIETY Last administered on t 06:44; Admin Dose 1 MG; Start 06/15/16 at 06:00 SERGEY BOWSER MD Jun 15, 2016 12:18
[2016-06-15] MEDS: ACETAMINOPHEN 325 MG TAB PO PRN (17:29)
--- NOTE | 2016-06-15 19:08 | PN ---
Date/Time of Note Date/Time of Note DATE: 06/15/16 TIME: 19:07 Assessment/Plan VTE Prophylaxis VTE Prophylaxis Intervention: other Lines/Catheters IV Catheter Type (from Nrs): PORTACATH Assessment/Plan Chief Complaint/Hosp Course IMPRESSION: 1. Status post chemotherapy, now patient has nausea, vomiting and abdominal pain. 2. The patient has a history of breast cancer, status post partial mastectomy. 3. The patient also has hypokalemia.better plan per oncology Problems: Subjective 24 Hr Interval Summary Respiratory: no complaints Cardiovascular: no complaints Gastrointestinal: vomiting (better) Exam/Review of Systems Vital Signs Vitals Vital Signs Date Time Temp Pulse Resp B/P Pulse Ox O2 Delivery O2 Flow Rate FiO2 06/15/16 07:34 98.5 82 20 118/71 97 06/13/16 18:26 Room Air Intake and Output 06/14/16 06/14/16 06/15/16 15:00 23:00 07:00 Intake Total 2580 ml 900 ml Output Total 0 ml Balance 2580 ml 900 ml Exam Neck: supple Respiratory: clear to auscultation Cardiovascular: regular rate and rhythm Gastrointestinal: soft Musculoskeletal: nl extremities to inspection Extremities: normal pulses Results Result Diagram: 06/15/16 0600 06/15/16 0606 Results 24 hrs Laboratory Tests Test 06/15/16 06:00 06/15/16 06:06 White Blood Count 6.5 # Red Blood Count 3.44 L Hemoglobin 9.8 L Hematocrit 29.9 L Mean Corpuscular Volume 86.9 Mean Corpuscular Hemoglobin 28.5 L Mean Corpuscular Hemoglobin Concent 32.8 Red Cell Distribution Width 14.7 H Platelet Count 182 Mean Platelet Volume 11.1 H Neutrophils % 80.5 H Lymphocytes % 7.7 L Monocytes % 3.2 Eosinophils % 0.6 Basophils % 0.9 Nucleated Red Blood Cells % 0.0 Neutrophils # 5.2 Lymphocytes # 0.5 L Monocytes # 0.2 L Eosinophils # 0.0 Basophils # 0.1 Nucleated Red Blood Cells # 0.0 Sodium Level 137 Potassium Level 4.3 Chloride Level 105 Carbon Dioxide Level 27 Anion Gap 9 # Blood Urea Nitrogen 11 Creatinine 0.75 Glucose Level 120 Calcium Level 8.9 Total Bilirubin 0.0 L Direct Bilirubin 0.00 Indirect Bilirubin 0.0 Aspartate Amino Transf (AST/SGOT) 26 Alanine Aminotransferase (ALT/SGPT) 29 Alkaline Phosphatase 170 #H Total Protein 6.6 Albumin 3.7 Globulin 2.90 Albumin/Globulin Ratio 1.27 Medications Medications Current Medications Dextrose/Sodium Chloride (D5-NS) 1,000 ml @ 75 mls/hr [id number] IV Last administered on 06/15/16 11:55; Admin Dose 75 MLS/HR; Start 06/13/16 at 21:30 Pantoprazole (Protonix Iv) 40 mg DAILY@06 IV Last administered on 06/15/16 06: 44; Admin Dose 40 MG; Start 06/14/16 at 06:00 Acetaminophen (Tylenol Tab) 650 mg Q6H PRN PO PAIN AND OR ELEVATED TEMP Last administered on 06/15/16 17:29; Admin Dose 650 MG; Start 06/13/16 at 21:30 Metoclopramide HCl (Reglan) 10 mg Q6 PRN IV NAUSEA Last administered on 08:48; Admin Dose 10 MG; Start 06/13/16 at 21:30 Ondansetron HCl (Zofran Inj) 4 mg Q6H PRN IV NAUSEA AND/OR VOMITING Last administered on 06/15/16 14:54; Admin Dose 4 MG; Start 06/13/16 at 21:30 Lorazepam (Ativan) 0.5 mg Q8H PRN PO ANXIETY Last administered on 06/14/16 22: 49; Admin Dose 0.5 MG; Start 06/13/16 at 21:30 Polyethylene Glycol (Miralax) 17 gm DAILY PRN PO CONSTIPATION Last administered on 06/15/16 09:30; Admin Dose 17 GM; Start 06/14/16 at 10:00 Docusate Sodium (Colace) 100 mg BID PO Last administered on 06/15/16 09:30; Admin Dose 100 MG; Start 06/14/16 at 10:00 Phenol (Cepastat Lozenge) 1 lozenge Q1H PRN MT DRY MOUTH; Start 06/15/16 at 06: 00 Lorazepam (Ativan) 1 mg Q6H PRN IV AGITATION/ANXIETY Last administered on 06:44; Admin Dose 1 MG; Start 06/15/16 at 06:00 FAIZA MEJIA MD Jun 15, 2016 19:08
[2016-06-15 21:19] VITALS: BP 128/74; RESP 18
[2016-06-16] MEDS: PANTOPRAZOLE 40 MG INJ IV SCH (05:50)
[2016-06-16] MEDS: ACETAMINOPHEN 325 MG TAB PO PRN ×2 (05:52→13:25)
[2016-06-16] MEDS ORDERED: PANTOPRAZOLE (EC) 40 MG TAB PO SCH (06:00)
[2016-06-16 07:36] VITALS: BP 120/71; RESP 20
[2016-06-16] MEDS: DOCUSATE SODIUM 100 MG CAP PO SCH (08:21)
[2016-06-16] MEDS: ONDANSETRON 4 MG INJ IV PRN (08:25)
[2016-06-16] MEDS: DEXTROSE 5%-0.9% NACL 1,000 ML IV SCH (13:25)
--- NOTE | 2016-06-16 14:34 | CONS ---
Date/Time of Note Date/Time of Note DATE: 06/16/16 TIME: 14:26 Assessment/Plan Assessment/Plan Chief Complaint/Hosp Course 46yo BRCA negative female with essentially triple negative high risk T2No breast cancer of L breast s/p partial mastectomy s/p 2nd cycle of AC with Akynzeo given on 06/10 followed by 1 dose of Neulasta and 2 more days of IV hydration, admitted for intractable N/V, now improved/resolved. -continue Zofran to 8mg IV q 6 hours prn nausea -continue fluids and electrolyte replacement -will consider giving next cycle of chemotherapy as inpatient given repeated hospitalizations vs. changing to TC -will need akynzeo and IV hydration with next cycle as well -ok to discharge home with follow-up with me as an outpatient later this week or early next week Problems: Consultation Date/Type/Reason Admit Date/Time Jun 13, 2016 at 16:36 Initial Consult Date 06/13/16 Type of Consultation: Oncology Referring Provider: PATRICIO CASEY 24 HR Interval Summary Free Text/Dictation Patient states that she has mild nausea but much improved, no vomiting. Patient feels ready to go home. Exam/Review of Systems Vital Signs Vitals Vital Signs Date Time Temp Pulse Resp B/P Pulse Ox O2 Delivery O2 Flow Rate FiO2 06/16/16 07:36 98.0 99 20 120/71 99 06/13/16 18:26 Room Air Intake and Output 06/15/16 06/15/16 06/16/16 15:00 23:00 07:00 Intake Total 500 ml 1530 ml 950 ml Balance 500 ml 1530 ml 950 ml Exam Constitutional: alert, oriented Head: normocephalic Eyes: nl conjunctiva Neck: supple Respiratory: clear to auscultation Cardiovascular: regular rate and rhythm Gastrointestinal: soft Musculoskeletal: nl extremities to inspection Results Result Diagram: 06/15/16 0600 06/15/16 0606 Medications Medications Current Medications Dextrose/Sodium Chloride (D5-NS) 1,000 ml @ 75 mls/hr [id number] IV Last administered on 06/16/16 13:25; Admin Dose 75 MLS/HR; Start 06/13/16 at 21:30 Pantoprazole (Protonix Iv) 40 mg DAILY@06 IV Last administered on 06/16/16 05: 50; Admin Dose 40 MG; Start 06/14/16 at 06:00 Acetaminophen (Tylenol Tab) 650 mg Q6H PRN PO PAIN AND OR ELEVATED TEMP Last administered on 06/16/16 13:25; Admin Dose 650 MG; Start 06/13/16 at 21:30 Metoclopramide HCl (Reglan) 10 mg Q6 PRN IV NAUSEA Last administered on 08:48; Admin Dose 10 MG; Start 06/13/16 at 21:30 Ondansetron HCl (Zofran Inj) 4 mg Q6H PRN IV NAUSEA AND/OR VOMITING Last administered on 06/16/16 08:25; Admin Dose 4 MG; Start 06/13/16 at 21:30 Lorazepam (Ativan) 0.5 mg Q8H PRN PO ANXIETY Last administered on 06/14/16 22: 49; Admin Dose 0.5 MG; Start 06/13/16 at 21:30 Polyethylene Glycol (Miralax) 17 gm DAILY PRN PO CONSTIPATION Last administered on 06/15/16 09:30; Admin Dose 17 GM; Start 06/14/16 at 10:00 Docusate Sodium (Colace) 100 mg BID PO Last administered on 06/16/16 08:21; Admin Dose 100 MG; Start 06/14/16 at 10:00 Phenol (Cepastat Lozenge) 1 lozenge Q1H PRN MT DRY MOUTH; Start 06/15/16 at 06: 00 Lorazepam (Ativan) 1 mg Q6H PRN IV AGITATION/ANXIETY Last administered on 22:10; Admin Dose 1 MG; Start 06/15/16 at 06:00 SERGEY BOWSER MD Jun 16, 2016 14:34
--- NOTE | 2016-06-16 15:58 | PDOCDIS ---
Discharge Instructions CONDITION Patient Condition: Good HOME CARE INSTRUCTIONS: Special Diet: regular ACTIVITY: Activity Restrictions: Slowly Increase Activity FOLLOW UP/APPOINTMENTS Appointments F/U DR BOWSER/DR LLANOS 1 WK FAIZA MEJIA MD Jun 16, 2016 15:58
[2016-06-16] MEDS ORDERED: METO10TA92 PO (16:00)
[2016-06-16] MEDS ORDERED: POLY17PO6 PO (16:00)
[2016-06-16] MEDS ORDERED: BENZ1LOZ4 MT (16:00)
[2016-06-16] MEDS ORDERED: PANT40TA3 PO (16:00)
[2016-06-16] MEDS ORDERED: LORA-441 PO (16:00)
[2016-06-16] MEDS ORDERED: DOCU-216 PO (16:00)
[2016-06-16] MEDS ORDERED: HEPARIN (100 UNITS/ML) 5 ML SYG CATHETER ONE (17:00)
--- NOTE | 2016-06-25 13:39 | QN ---
Documentation Comment [id number] FAIZA MEJIA MD Jun 25, 2016 13:39
--- NOTE | 2016-06-25 17:08 | DS ---
DATE OF ADMISSION: 06/13/2016 DATE OF DISCHARGE: 06/16/2016 HOSPITAL COURSE: The patient is a 46-year-old with BRCA negative , with triple- negative high-risk T2 N0 breast cancer of the left breast, status post partial mastectomy, getting chemotherapy as an outpatient, presents with nausea. The patient received IV fluid, antinausea medication. Dr. Nubia Dockery saw the patient in consultation. She was continued on Zofran and pain medication. The patient's symptoms are now resolving. The patient is stable to be discharged home. DISCHARGE DIAGNOSES: Include: 1. Status post chemotherapy, status post nausea and vomiting. 2. Breast cancer, status post partial mastectomy. 3. History of hypokalemia. 4. Leukocytosis, resolving. 5. Thrombocytopenia, stable. DISCHARGE MEDICATIONS: Continue on: 1. stool softner. 2. Docusate sodium. 3. Lorazepam. 4. Protonix. 5. MiraLax. 6. Calcium carbonate. 7. Diphenhydramine. 8. Ativan. 9. Reglan. 10. Zofran. CONDITION: The patient is stable at the time of discharge. Dictated By: FAIZA MEJIA MD BS/NTS Conf#: [id number] DID#: [id number] MTDD
== END 2016-06-16 17:20 | disposition home or self-care (01) | DRG 392 ==
LOC: E/R 13:46 → MS2 16:36
PROVIDERS: ADMIT Internal Medicine Nephrology; ATTEND Internal Medicine Nephrology
DX: R11.2 Nausea with vomiting, unspecified (principal); D69.6 Thrombocytopenia, unspecified; C50.912 Malignant neoplasm of unspecified site of left female breast; E87.6 Hypokalemia; Z90.12 Acquired absence of left breast and nipple; Z92.21 Personal history of antineoplastic chemotherapy
CPT/HCPCS: 36415; 80048; 80053; 85025; 87081; 96374; 96375; C9113; J1642; J2060; J2405; J2765; J3480; J7030; J7042

== ENCOUNTER 2016-06-25 20:41 | Inpatient (IN) | payer OTHER ==
[~2016-06-25] VITALS: Ht 165.1 cm; Wt 113.2 kg
[~2016-06-25 20:41] MED LIST changes: +BENZ1LOZ4 MT; +DOCU-216 PO; -HYDR-3498 PO; +LORA-441 PO; +LORA0.5T PO; +ONDA8TAB9 PO; -POLY17PO6 GTB; +POLY17PO6 PO
--- NOTE | 2016-06-25 21:19 | ERA ---
ER Documentation Chief Complaint Date/Time DATE: 06/25/16 TIME: 21:18 Chief Complaint had chemo today for left breast ca, now c/o nausea/body pain HPI The patient is 46-year-old female, presenting to the ER because of nausea, general body pain about 1 hour after finishing chemotherapy today. She had similar symptoms about 2 weeks ago after chemotherapy. This is her third chemotherapy for left breast cancer. He was well prior to chemotherapy. She denies fever, chills, neck pain, chest pain, abdominal pain, dysuria, diarrhea, constipation. She does not smoke nor drink Past medical history: Left breast cancer Past surgical history: Left partial mastectomy, Port-A-Cath, hysterectomy ROS All systems reviewed and are negative except as per history of present illness. Medications Home Meds Active Scripts Pantoprazole* (Protonix*) 40 Mg Tablet.dr, 40 MG PO DAILY for 14 Days, TAB Prov:FAIZA MEJIA MD 06/16/16 Polyethylene Glycol* (Miralax*) 17 Gm Powd.pack, 17 GM PO DAILY Y for CONSTIPATION for 14 Days Prov:FAIZA MEJIA MD 06/16/16 Lorazepam* (Ativan*) 0.5 Mg Tablet, 0.5 MG PO Q8H Y for ANXIETY for 10 Days, TAB Prov:FAIZA MEJIA MD 06/16/16 Metoclopramide* (Reglan*) 10 Mg Tablet, 10 MG PO AC MEALS for 14 Days, TAB Prov:FAIZA MEJIA MD 06/16/16 Reported Medications Lactulose* (Lactulose*) 10 Gm/15 Ml Solution, 10 GM PO Q8 Y for PRN, ML 06/25/16 Ondansetron Hcl* (Zofran*) 8 Mg Tablet, 8 MG PO Q8 Y for NAUSEA AND OR VOMITING , TAB 06/13/16 Discontinued Reported Medications Lorazepam* (Lorazepam*) 0.5 Mg Tablet, 0.5 MG PO Q8 Y for ANXIETY, TAB 06/13/16 Diphenhydramine Hcl* (Diphenhydramine Hcl*) 25 Mg Capsule, 25 MG PO Q6 Y for ITCHING, CAP 04/09/16 Calcium Carbonate* (Tums X-Str) 300 Mg Tab.chew, 300 MG PO, TAB.CHEW 04/09/16 Discontinued Scripts Docusate Sodium (Dok) 100 Mg Capsule, 100 MG PO BID for 14 Days, CAP Prov:FAIZA MEJIA MD 06/16/16 Benzocaine/Menthol (SORE THROAT LOZENGE) 1 Each Lozenge, 1 LOZENGE MT Q1H Y for DRY MOUTH for 14 Days, LOZENGE Prov:FAIZA MEJIA MD 06/16/16 Allergies Allergies: Coded Allergies: No Known Allergy (Unverified , 06/25/16) PMhx/Soc History of Surgery: Yes (hysterectomy 2016, partial mastectomy left, 03/2016) Anesthesia Reaction: No Hx Neurological Disorder: No Hx Respiratory Disorders: No Hx Cardiac Disorders: No Hx Psychiatric Problems: No Hx Miscellaneous Medical Probl: No Hx Alcohol Use: No Hx Substance Use: No Hx Tobacco Use: No Physical Exam Vitals Vital Signs Date Time Temp Pulse Resp B/P Pulse Ox O2 Delivery O2 Flow Rate FiO2 06/26/16 00:25 73 18 127/64 100 Room Air 06/25/16 23:01 82 20 122/81 99 Room Air 06/25/16 20:55 98.3 85 20 122/68 96 Physical Exam Const: No acute distress. Head: Atraumatic. Eyes: Normal Conjunctiva. ENT: Normal External Ears, Nose and Mouth. Neck: Full range of motion. No meningismus. Resp: Clear to auscultation bilaterally. Cardio: Regular rate and rhythm, no murmurs. Abd: Soft, non distended, normal bowel sounds, mild epigastric and left upper quadrant tenderness, no rigidity, rebound, CVA tenderness. Skin: No petechiae or rashes. Back: No midline or flank tenderness. Ext: No cyanosis, or edema. Neur: Awake and alert. No focal deficit Psych: Normal Mood and Affect. Result Diagram: 06/25/16219906/25/162199 Results 24 hrs Laboratory Tests Test 06/25/16 22:00 06/25/16 22:15 White Blood Count 16.310^3/ul Red Blood Count 3.5210^6/ul Hemoglobin 9.7g/dl Hematocrit 30.2% Mean Corpuscular Volume 85.8fl Mean Corpuscular Hemoglobin 27.6pg Mean Corpuscular Hemoglobin Concent 32.1g/dl Red Cell Distribution Width 14.5% Platelet Count 64637^3/UL Mean Platelet Volume 12.1fl Neutrophils % 85.0% Band Neutrophils % 6.0% Lymphocytes % 4.0% Monocytes % 2.0% Metamyelocytes % 3.0% Neutrophils # 13.910^3/ul Lymphocytes # 0.710^3/ul Monocytes # 0.310^3/ul Metamyelocytes # 0.5 Platelet Estimate PLT APPEAR ADEQUATE Macrocytosis 1+ Sodium Level 136mmol/L Potassium Level 4.2mmol/L Chloride Level 101mmol/L Carbon Dioxide Level 23mmol/L Anion Gap 16 Blood Urea Nitrogen 10mg/dl Creatinine 0.70mg/dl Glucose Level 149mg/dl Calcium Level 9.4mg/dl Total Bilirubin 0.2mg/dl Direct Bilirubin 0.00mg/dl Indirect Bilirubin 0.2mg/dl Aspartate Amino Transf (AST/SGOT) 31IU/L Alanine Aminotransferase (ALT/SGPT) 39IU/L Alkaline Phosphatase 70IU/L Total Protein 7.2g/dl Albumin 3.9g/dl Globulin 3.30g/dl Albumin/Globulin Ratio 1.18 Lipase 42U/L Bedside Urine pH (LAB) 6.0 Bedside Urine Protein (LAB) Negative Bedside Urine Glucose (UA) Negative Bedside Urine Ketones (LAB) Negative Bedside Urine Blood Negative Bedside Urine Nitrite (LAB) Negative Bedside Urine Leukocyte Esterase (L Negative Current Medications Medications (Trade) Dose Ordered Sig/Liset Route PRN Reason Start Time Stop Time Status Last Admin Dose Admin Ondansetron HCl 4 mg 4 mg ONCE STAT IV 06/25/16 21:37 06/25/16 21:39 DC 06/25/16 22:06 Sodium Chloride 1,000 ml @ 1,000 mls/hr Q1H ONCE IV 06/25/16 22:00 06/25/16 22:59 DC 06/25/16 22:06 Cefepime HCl (Maxipime 2gm/50 ml (Pmx)) 50 ml @ 100 mls/hr ONCE ONCE IVPB 06/25/16 23:30 06/25/16 23:59 DC Procedures/[place] [id number] Radiology Main Line: [phone] DIAGNOSTIC IMAGING REPORT Patient: KEZIA WHATLEY : 1970 Age: 46 Sex: F MR #: [id number] DOS: 06/25/16 0000 Ordering MD: SAMINA MARTÍNEZ MD Location: E/R Room/Bed: PROCEDURE: XR Chest. CLINICAL INDICATION: Fever. TECHNIQUE: Portable AP semi erect view of the chest was obtained. COMPARISON: None. FINDINGS: The cardiomediastinal silhouette is mildly enlarged. The lungs are clear. There is no evidence for pleural effusion, pneumothorax or pulmonary vascular congestion. The osseous structures are intact with no evidence for acute abnormality. Right subclavian approach venous access device is present the distal tip projecting in the upper right atrium RPTAT:HJJR IMPRESSION: 1. Mild cardiac silhouette enlargement without evidence for acute intrathoracic pathology. 2. Right venous access device projecting in satisfactory location. Physician Christal Date Time Electronically viewed and signed by Physician Christal on 06/26/2016 00:00 JR/ CC: SAMINA MARTÍNEZ MD MEDICAL MAKING DECISION: The patient is a 46-year-old female, presenting with acute leukocytosis and subjective fever of unclear etiology. She was treated with cefepime IV empirically, Zofran 4 mgIV for nausea 2 and 1 L normal saline for clinical dehydration with good response The differential diagnoses considered include but are not limited to cystitis, pneumonia, bacteremia Departure Diagnosis: Primary Impression: Leukocytosis Additional Impression: Anemia Condition: Stable Comments I discussed the findings with the patient. I discussed the patient with her physician who was made aware of the lab, the treatment, the patient condition. The patient is admitted to [facility] at 12:05 am SAMINA MARTÍNEZ MD Jun 25, 2016 21:19
[2016-06-25] MEDS ORDERED: ONDANSETRON 4 MG INJ IV STA (21:37)
[2016-06-25] MEDS ORDERED: LACT10SO5 PO (21:56)
[2016-06-25] MEDS ORDERED: SOD CHLORIDE 0.9% 1,000 ML IV ONE (22:00)
[2016-06-25 22:04] LABS: ADD SCAN DIFF NO
[2016-06-25 22:05] LABS: ABNORMAL IP MESSAGE 1; HEMATOCRIT 30.2 % (37.0-47.0); HEMOGLOBIN 9.7 g/dl (12.0-16.0); MEAN CORPUSCULAR HEMOGLOBIN 27.6 pg (29.0-33.0); MEAN CORPUSCULAR HGB CONC 32.1 g/dl (32.0-37.0); MEAN CORPUSCULAR VOLUME 85.8 fl (82.0-101.0); MEAN PLATELET VOLUME 12.1 fl (7.4-10.4); PLATELET COUNT 256 10^3/UL (140-415); RED BLOOD COUNT 3.52 10^6/ul (4.20-5.40); RED CELL DISTRIBUTION WIDTH 14.5 % (11.5-14.5); WHITE BLOOD COUNT 16.3 10^3/ul (4.8-10.8)
[2016-06-25 22:14] LABS: ALBUMIN 3.9 g/dl (3.3-4.9)
[2016-06-25 22:15] LABS: POTASSIUM 4.2 mmol/L (3.5-5.1)
[2016-06-25 22:16] LABS: URINE BLOOD (Dip) POC Negative (NEGATIVE)
[2016-06-25 22:17] LABS: BILIRUBIN,INDIRECT 0.2 mg/dl (0-1.1); BILIRUBIN,TOTAL 0.2 mg/dl (0.2-1.3); CREATININE 0.7 mg/dl (0.44-1.00)
[2016-06-25 22:18] LABS: ALBUMIN/GLOBULIN RATIO 1.18; CALCIUM 9.4 mg/dl (8.4-10.2); TOTAL PROTEIN 7.2 g/dl (6.1-8.1)
[2016-06-25 22:35] LABS: LYMPHOCYTES # 0.7 10^3/ul (0.8-2.9); MONOCYTE # 0.3 10^3/ul (0.3-0.9); NEUTROPHIL # 13.9 10^3/ul (1.6-7.5)
[2016-06-25 22:37] LABS: PLATELET ESTIMATE PLT APPEAR ADEQUATE
[2016-06-25] MEDS ORDERED: CEFEPIME 2GM/50 ML (PMX) 50 ML IVPB ONE (23:30)
--- NOTE | 2016-06-26 | RADRPT ---
PROCEDURE: XR Chest. CLINICAL INDICATION: Fever. TECHNIQUE: Portable AP semi erect view of the chest was obtained. COMPARISON: None. FINDINGS: The cardiomediastinal silhouette is mildly enlarged. The lungs are clear. There is no evidence for pleural effusion, pneumothorax or pulmonary vascular congestion. The osseous structures are intact with no evidence for acute abnormality. Right subclavian approach venous access device is present t he distal tip projecting in the upper right atrium RPTAT:HJJR IMPRESSION: 1. Mild cardiac silhouette enlargement without evidence for acute intrathoracic pathology. 2. Right venous access device projecting in satisfactory location. Physician Christal Date Time Electronically viewed and signed by Zoltan Ashley Physician on 06/26/2016 00:00 JR/
[2016-06-26] MEDS ORDERED: morphine 2 MG INJ IV ONE (01:00)
[2016-06-26] MEDS ORDERED: ONDANSETRON 4 MG INJ IV STA (02:01)
[2016-06-26 02:15] VITALS: TEMP 98.3
[2016-06-26 02:45] VITALS: BP 147/68; PULSE 86; RESP 18
[2016-06-26 03:16] VITALS: Ht 165.1 cm; Wt 113.2 kg
[2016-06-26] MEDS ORDERED: LACTULOSE 30ML CUP PO PRN (04:00)
[2016-06-26] MEDS: DEXTROSE 5%-0.9% NACL 1,000 ML IV SCH ×2 (04:31→16:26)
[2016-06-26] MEDS ORDERED: DIPHENHYDRAMINE 25 MG CAP PO PRN (05:00)
[2016-06-26] MEDS: PANTOPRAZOLE 40 MG INJ IV SCH (06:06)
[2016-06-26 07:44] LABS: ADD SCAN DIFF NO
[2016-06-26 07:46] VITALS: BP 117/56; RESP 18
[2016-06-26 07:51] LABS: ALBUMIN 3.5 g/dl (3.3-4.9); POTASSIUM 3.8 mmol/L (3.5-5.1)
[2016-06-26 07:52] LABS: ABNORMAL IP MESSAGE 1; BASOPHILS % 0.1 % (0.0-2.0); HEMATOCRIT 27.3 % (37.0-47.0); HEMOGLOBIN 8.7 g/dl (12.0-16.0); LYMPHOCYTES # 0.4 10^3/ul (0.8-2.9); LYMPHOCYTES % 2.7 % (15.0-51.0); MEAN CORPUSCULAR HEMOGLOBIN 27.6 pg (29.0-33.0); MEAN CORPUSCULAR HGB CONC 31.9 g/dl (32.0-37.0); MEAN CORPUSCULAR VOLUME 86.7 fl (82.0-101.0); MEAN PLATELET VOLUME 11.2 fl (7.4-10.4); MONOCYTES % 6.9 % (0.0-11.0); NEUTROPHIL # 11.7 10^3/ul (1.6-7.5); NUCLEATED RED BLOOD CELLS% 0.1 /100WBC (0.0-0.0); PLATELET COUNT 217 10^3/UL (140-415); RED BLOOD COUNT 3.15 10^6/ul (4.20-5.40); RED CELL DISTRIBUTION WIDTH 14.6 % (11.5-14.5); WHITE BLOOD COUNT 13.9 10^3/ul (4.8-10.8)
[2016-06-26 07:53] LABS: BILIRUBIN,INDIRECT 0.1 mg/dl (0-1.1); BILIRUBIN,TOTAL 0.1 mg/dl (0.2-1.3); CREATININE 0.68 mg/dl (0.44-1.00)
[2016-06-26 07:54] LABS: ALBUMIN/GLOBULIN RATIO 1.2; CALCIUM 9.1 mg/dl (8.4-10.2); TOTAL PROTEIN 6.4 g/dl (6.1-8.1)
[2016-06-26] MEDS: ONDANSETRON 4 MG INJ IV PRN ×3 (08:32→22:02)
[2016-06-26] MEDS: CALCIUM CARBONATE 750 MG CHEW TAB PO SCH (08:32)
[2016-06-26] MEDS: ACETAMINOPHEN 325 MG TAB PO PRN ×2 (08:32→15:11)
[2016-06-26] MEDS: POLYETHYLENE GLYCOL 17 GM PACKET PO SCH (08:33)
[2016-06-26] MEDS: METOCLOPRAMIDE 10 MG INJ IV PRN ×2 (11:57→19:41)
--- NOTE | 2016-06-26 14:49 | QN ---
Documentation Comment [id number] FAIZA MEJIA MD Jun 26, 2016 14:49
--- NOTE | 2016-06-26 15:46 | HP ---
DATE OF ADMISSION: 06/26/2016 HISTORY OF PRESENT ILLNESS: The patient is a 46-year-old female with history of breast carcinoma. The patient has recently been discharged from this hospital with the diagnosis of status post chemotherapy, nausea, vomiting, breast cancer status post partial left mastectomy, history of hypokalemia, leukocytosis, and thrombocytopenia. The patient had chemotherapy, smaller dose taken. Recently after, the patient had nausea, vomiting, and was unable to take by mouth and presented to this hospital. The patient noted to have pulse 85, blood pressure 117/56. The patient is being admitted for further management. PAST MEDICAL HISTORY: Leukocytosis, breast cancer status post partial left mastectomy, on chemotherapy. The patient's other history includes total abdominal hysterectomy and history of nausea. ALLERGY HISTORY: NEGATIVE. FAMILY HISTORY: No change. SOCIAL HISTORY: No change. MEDICATION HISTORY: The patient is on 1. Lactulose. 2. Lorazepam. 3. Reglan 4. Zofran. 5. Protonix. 6. MiraLax. REVIEW OF SYSTEMS: HEENT: Unremarkable. RESPIRATORY: Unremarkable. CARDIOVASCULAR: Unremarkable. ABDOMEN: Nausea, vomiting. EXTREMITIES: Unremarkable. CENTRAL NERVOUS SYSTEM: Unremarkable. PHYSICAL EXAMINATION: GENERAL: The patient is awake, alert. VITAL SIGNS: Stable. HEAD: Atraumatic, normocephalic. Pupils equal, reactive to light. NECK: Supple. No JVD. LUNGS: Clear. CARDIOVASCULAR: S1, S2 normal. ABDOMEN: Soft, obese. Bowel sounds positive. No palpable mass or hepatosplenomegaly. EXTREMITIES: There is no cyanosis, clubbing, or edema. CENTRAL NERVOUS SYSTEM: The patient is awake, alert, no focal deficit. LABORATORY DATA: WBC 16.3, hematocrit 30.2, platelet count of 256. The patient has sodium 131, potassium 3.8. Urine is negative. The patient's chest x-ray shows the patient has mild cardiac silhouette enlarged without evidence for acute intrathoracic pathology device projecting, port catheter. IMPRESSION: 1. Leukocytosis. 2. Nausea and vomiting, possibly due to chemotherapy. 3. Breast carcinoma, on chemotherapy. 4. Dyspepsia. PLAN: Continue PPI, antinausea medication, pain medication, and oncology consultation. Orders were done. Dictated By: FAIZA RENEE/NTS Conf#: [id number] DID#: [id number] MTDD
--- NOTE | 2016-06-26 18:36 | CONS ---
Date/Time of Note Date/Time of Note DATE: 06/26/16 TIME: 18:34 Assessment/Plan Assessment/Plan Chief Complaint/Hosp Course 46yo BRCA negative female with essentially triple negative high risk T2No breast cancer of L breast s/p partial mastectomy s/p 3 cycles of dose dense AC last 06/25/16 again admitted for intractable N/V despite Akynzeo and 15% dose reduction. - neulasta to be given today (patient to be given own medication from the clinic ) - continue zofran and reglan prn, can also use ativan prn nausea or anxiety - continue fluids and electrolyte replacement - consider switching to TC as patient cannot tolerate AC vs. skipping fourth cycle of AC and proceeding with weekly taxol -patient also with chest wall pain above port. CXR 06/25/16 showed 1. Mild cardiac silhouette enlargement without evidence for acute intrathoracic pathology. 2. Right venous access device projecting in satisfactory location. -will order chest/right neck US to r/o abscess given persistent tenderness Problems: Consultation Date/Type/Reason Admit Date/Time Jun 26, 2016 at 00:53 Date of Consultation: Jun 26, 2016 Type of Consultation: Oncology Reason for Consultation Nausea and vomiting from chemotherapy Hx of Present Illness The patient is a 46 year old postmenopausal female s/p CONCHA/BSO 04/12/15 for heavy menses who was found with an abnormal mammogram 02/2016. 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 Patient underwent L partial mastectomy on 04/09/16 which revealed a T2N0 lesion. Given the high risk features she was started on chemotherapy on 05/28. She was given IV emend for nausea in addition to Adriamycin and Cytoxan. After her first cycle she was admitted with intractable nausea and vomiting and again after her second cycle despite Akynzeo, a very potent antiemetic as well as 3 days of IV hydration with the chemotherapy. She received cycle 3 AC on 06/25/16 with Akynzeo however unfortunately again is admitted for severe nausea despite 15% dose reduction. She states that she has not vomited since admission. Past Surgical History L partial mastectomy Family History Significant Family History: other (maternal aunt with spleen and bran ca, maternal uncle with liver ca, cousin with breast ca in her 20's) Social History Alcohol Use: none Smoking Status: Never smoker Drug Use: none Exam/Review of Systems Vital Signs Vitals Vital Signs Date Time Temp Pulse Resp B/P Pulse Ox O2 Delivery O2 Flow Rate FiO2 06/26/16 07:46 98.5 86 18 117/56 97 06/26/16 02:45 Room Air Exam Constitutional: alert, oriented Head: normocephalic Eyes: nl conjunctiva Neck: supple Respiratory: clear to auscultation Cardiovascular: regular rate and rhythm Gastrointestinal: soft, tender Musculoskeletal: nl extremities to inspection Results Result Diagram: 06/26/1623 06/26/16 0723 Results 24 hrs Laboratory Tests Test 06/25/16 22:00 06/25/16 22:15 06/26/16 07:23 White Blood Count 16.3 #H 13.9 H Red Blood Count 3.52 L 3.15 L Hemoglobin 9.7 L 8.7 L Hematocrit 30.2 L 27.3 L Mean Corpuscular Volume 85.8 86.7 Mean Corpuscular Hemoglobin 27.6 L 27.6 L Mean Corpuscular Hemoglobin Concent 32.1 31.9 L Red Cell Distribution Width 14.5 14.6 H Platelet Count 256 # 217 Mean Platelet Volume 12.1 H 11.2 H Neutrophils % 85.0 H 84.0 H Band Neutrophils % 6.0 H Lymphocytes % 4.0 L 2.7 L Monocytes % 2.0 6.9 Metamyelocytes % 3.0 H Neutrophils # 13.9 H 11.7 H Lymphocytes # 0.7 L 0.4 L Monocytes # 0.3 1.0 H Metamyelocytes # 0.5 Platelet Estimate PLT APPEAR ADEQUATE Macrocytosis 1+ Sodium Level 136 139 Potassium Level 4.2 3.8 Chloride Level 101 105 Carbon Dioxide Level 23 24 Anion Gap 16 14 Blood Urea Nitrogen 10 8 Creatinine 0.70 0.68 Glucose Level 149 161 Calcium Level 9.4 9.1 Total Bilirubin 0.2 0.1 L Direct Bilirubin 0.00 0.00 Indirect Bilirubin 0.2 0.1 Aspartate Amino Transf (AST/SGOT) 31 29 Alanine Aminotransferase (ALT/SGPT) 39 33 Alkaline Phosphatase 70 66 Total Protein 7.2 6.4 Albumin 3.9 3.5 Globulin 3.30 H 2.90 Albumin/Globulin Ratio 1.18 1.20 Lipase 42 Bedside Urine pH (LAB) 6.0 Bedside Urine Protein (LAB) Negative Bedside Urine Glucose (UA) Negative Bedside Urine Ketones (LAB) Negative Bedside Urine Blood Negative Bedside Urine Nitrite (LAB) Negative Bedside Urine Leukocyte Esterase (L Negative Eosinophils % 0.0 Basophils % 0.1 Nucleated Red Blood Cells % 0.1 H Eosinophils # 0.0 Basophils # 0.0 Nucleated Red Blood Cells # 0.0 Medications Medications Current Medications Acetaminophen 650 mg 650 mg Q4H PRN PO PAIN AND OR ELEVATED TEMP Last administered on 06/26/16 15:11; Admin Dose 650 MG; Start 06/26/16 at 04:00 Dextrose/Sodium Chloride (D5-NS) 1,000 ml @ 75 mls/hr [id number] IV Last administered on 06/26/16 16:26; Admin Dose 75 MLS/HR; Start 06/26/16 at 04:00 Ondansetron HCl (Zofran Inj) 4 mg Q4H PRN IV NAUSEA AND/OR VOMITING Last administered on 06/26/16 15:11; Admin Dose 4 MG; Start 06/26/16 at 04:00 Metoclopramide HCl (Reglan) 10 mg Q6H PRN IV NAUSEA Last administered on 11:57; Admin Dose 10 MG; Start 06/26/16 at 04:00 Pantoprazole (Protonix Iv) 40 mg DAILY@06 IV Last administered on 06/26/16 06: 06; Admin Dose 40 MG; Start 06/26/16 at 06:00 Lorazepam (Ativan) 1 mg Q6H PRN IV ANXIETY; Start 06/26/16 at 04:00 Lactulose (Enulose) 10 gm DAILY PRN PO CONSTIPATION; Start 06/26/16 at 04:00 Polyethylene Glycol (Miralax) 17 gm DAILY PO Last administered on 06/26/16 08: 33; Admin Dose 17 GM; Start 06/26/16 at 09:00 Diphenhydramine HCl (Benadryl) 25 mg Q6H PRN PO ITCHING; Start 06/26/16 at 05: 00 Calcium Carbonate (Tums Ex) 750 mg DAILY PO Last administered on 06/26/16 08: 32; Admin Dose 750 MG; Start 06/26/16 at 09:00 Patient Own Medication 1 ea ONCE ONCE SC ; Start 06/26/16 at 14:30; Stop at 14:31; Status UNV TO,SERGEY Tavarez MD Jun 26, 2016 18:35
[2016-06-26 19:00] VITALS: BP 134/72; RESP 20
[2016-06-26] MEDS ORDERED: [UNRECOGNIZED DRUG - OTHER] SC SCH (20:00)
--- NOTE | 2016-06-26 21:24 | RADRPT ---
PROCEDURE: Ultrasound examination of the right chest. CLINICAL INDICATION: Right chest pain superior to port site. TECHNIQUE: Multiple sonographic images of the right upper chest were obtained. COMPARISON: None. FINDINGS: There is normal soft tissue echogenicity. There is no fluid collection to suggest abscess. There is a port catheter within the right internal jugular vein. IMPRESSION: No fluid collection to suggest abscess. .Rene Frost MD, MD Date Time Electronically viewed and signed by .Rene Frost MD, on 06/26/2016 21:24 .T/
[2016-06-26] MEDS: LORAZEPAM 2 MG INJ IV PRN (22:03)
[2016-06-27] MEDS: METOCLOPRAMIDE 10 MG INJ IV PRN ×3 (04:30→19:38)
[2016-06-27] MEDS: PANTOPRAZOLE 40 MG INJ IV SCH (05:48)
[2016-06-27] MEDS: DEXTROSE 5%-0.9% NACL 1,000 ML IV SCH ×2 (05:49→19:12)
[2016-06-27 05:50] LABS: ADD SCAN DIFF NO
[2016-06-27 05:59] LABS: ABNORMAL IP MESSAGE 1; BASOPHIL # 0.1 10^3/ul (0.0-0.1); BASOPHILS % 0.2 % (0.0-2.0); HEMATOCRIT 28.8 % (37.0-47.0); HEMOGLOBIN 9.3 g/dl (12.0-16.0); LYMPHOCYTES # 0.6 10^3/ul (0.8-2.9); LYMPHOCYTES % 2.2 % (15.0-51.0); MEAN CORPUSCULAR HEMOGLOBIN 28.7 pg (29.0-33.0); MEAN CORPUSCULAR HGB CONC 32.3 g/dl (32.0-37.0); MEAN CORPUSCULAR VOLUME 88.9 fl (82.0-101.0); MEAN PLATELET VOLUME 11.8 fl (7.4-10.4); MONOCYTE # 0.8 10^3/ul (0.3-0.9); MONOCYTES % 2.9 % (0.0-11.0); NEUTROPHIL # 25.8 10^3/ul (1.6-7.5); NEUTROPHILS % 92.2 % (39.0-77.0); PLATELET COUNT 210 10^3/UL (140-415); RED BLOOD COUNT 3.24 10^6/ul (4.20-5.40); WHITE BLOOD COUNT 27.9 10^3/ul (4.8-10.8)
[2016-06-27 06:07] LABS: ALBUMIN 3.4 g/dl (3.3-4.9); ALBUMIN/GLOBULIN RATIO 1.21; CALCIUM 8.8 mg/dl (8.4-10.2); CREATININE 0.7 mg/dl (0.44-1.00); POTASSIUM 3.7 mmol/L (3.5-5.1); TOTAL PROTEIN 6.2 g/dl (6.1-8.1)
[2016-06-27 07:00] VITALS: BP 130/65; RESP 20
[2016-06-27] MEDS: POLYETHYLENE GLYCOL 17 GM PACKET PO SCH (08:13)
[2016-06-27] MEDS: ACETAMINOPHEN 325 MG TAB PO PRN (08:13)
[2016-06-27] MEDS: CALCIUM CARBONATE 750 MG CHEW TAB PO SCH (08:13)
--- NOTE | 2016-06-27 10:55 | PN ---
Date/Time of Note Date/Time of Note DATE: 06/27/16 TIME: 10:52 Assessment/Plan VTE Prophylaxis VTE Prophylaxis Intervention: ambulation Lines/Catheters IV Catheter Type (from Nrs): port-a cath Urinary Cath still in place: No Assessment/Plan Assessment/Plan 46yo BRCA negative female with essentially triple negative high risk T2No breast cancer of L breast s/p partial mastectomy s/p 3 cycles of dose dense AC last 06/25/16 admitted for intractable N/V despite Akynzeo and 15% dose reduction. - neulasta given and wbc now expectedly at 27. - continue zofran and reglan prn, can also use ativan prn nausea or anxiety - continue fluids and electrolyte replacement - consider switching to TC as patient cannot tolerate AC vs. skipping fourth cycle of AC and proceeding with weekly taxol -patient also with chest wall pain above port. CXR 06/25/16 showed 1. Mild cardiac silhouette enlargement without evidence for acute intrathoracic pathology. continue supportive care. Subjective 24 Hr Interval Summary Free Text/Dictation fatigue and tired. Constitutional: poor po Respiratory: no complaints Gastrointestinal: no complaints Exam/Review of Systems Vital Signs Vitals Vital Signs Date Time Temp Pulse Resp B/P Pulse Ox O2 Delivery O2 Flow Rate FiO2 06/27/16 07:00 99.0 105 20 130/65 99 06/26/16 02:45 Room Air Intake and Output 06/26/16 06/26/16 06/27/16 14:59 22:59 06:59 Intake Total 650 ml 1550 ml Output Total 1200 ml Balance -550 ml 1550 ml Exam Constitutional: alert, oriented Psych: depression Eyes: nl conjunctiva Neck: supple Respiratory: normal air movement Gastrointestinal: soft Results Result Diagram: 06/27/16 0439 06/27/16 0439 Results 24 hrs Laboratory Tests Test 06/27/16 04:39 White Blood Count 27.9 #H Red Blood Count 3.24 L Hemoglobin 9.3 L Hematocrit 28.8 L Mean Corpuscular Volume 88.9 Mean Corpuscular Hemoglobin 28.7 L Mean Corpuscular Hemoglobin Concent 32.3 Red Cell Distribution Width 15.0 H Platelet Count 210 Mean Platelet Volume 11.8 H Neutrophils % 92.2 H Lymphocytes % 2.2 L Monocytes % 2.9 Eosinophils % 0.0 Basophils % 0.2 Nucleated Red Blood Cells % 0.0 Neutrophils # 25.8 H Lymphocytes # 0.6 L Monocytes # 0.8 Eosinophils # 0.0 Basophils # 0.1 Nucleated Red Blood Cells # 0.0 Sodium Level 141 Potassium Level 3.7 Chloride Level 110 Carbon Dioxide Level 25 Anion Gap 10 Blood Urea Nitrogen 8 Creatinine 0.70 Glucose Level 93 # Calcium Level 8.8 Total Bilirubin 0.0 L Direct Bilirubin 0.00 Indirect Bilirubin 0.0 Aspartate Amino Transf (AST/SGOT) 23 Alanine Aminotransferase (ALT/SGPT) 41 Alkaline Phosphatase 65 Total Protein 6.2 Albumin 3.4 Globulin 2.80 Albumin/Globulin Ratio 1.21 Medications Medications Current Medications Acetaminophen 650 mg 650 mg Q4H PRN PO PAIN AND OR ELEVATED TEMP Last administered on 06/27/16 08:13; Admin Dose 650 MG; Start 06/26/16 at 04:00 Dextrose/Sodium Chloride (D5-NS) 1,000 ml @ 75 mls/hr [id number] IV Last administered on 06/27/16 05:49; Admin Dose 75 MLS/HR; Start 06/26/16 at 04:00 Ondansetron HCl (Zofran Inj) 4 mg Q4H PRN IV NAUSEA AND/OR VOMITING Last administered on 06/26/16 22:02; Admin Dose 4 MG; Start 06/26/16 at 04:00 Metoclopramide HCl (Reglan) 10 mg Q6H PRN IV NAUSEA Last administered on 04:30; Admin Dose 10 MG; Start 06/26/16 at 04:00 Pantoprazole (Protonix Iv) 40 mg DAILY@06 IV Last administered on 06/27/16 05: 48; Admin Dose 40 MG; Start 06/26/16 at 06:00 Lorazepam (Ativan) 1 mg Q6H PRN IV ANXIETY Last administered on 06/26/16 22:03 ; Admin Dose 1 MG; Start 06/26/16 at 04:00 Lactulose (Enulose) 10 gm DAILY PRN PO CONSTIPATION; Start 06/26/16 at 04:00 Polyethylene Glycol (Miralax) 17 gm DAILY PO Last administered on 06/26/16 08: 33; Admin Dose 17 GM; Start 06/26/16 at 09:00 Diphenhydramine HCl (Benadryl) 25 mg Q6H PRN PO ITCHING; Start 06/26/16 at 05: 00 Calcium Carbonate (Tums Ex) 750 mg DAILY PO Last administered on 06/27/16t 08: 13; Admin Dose 750 MG; Start 06/26/16 at 09:00 REBEKAH MCMULLEN MD Jun 27, 2016 10:55
[2016-06-27] MEDS: ONDANSETRON 4 MG INJ IV PRN ×2 (12:39→16:59)
[2016-06-27] MEDS ORDERED: CEPASTAT LOZENGE MT PRN (17:30)
[2016-06-27] MEDS: LORAZEPAM 2 MG INJ IV PRN (19:39)
[2016-06-28] MEDS: ONDANSETRON 4 MG INJ IV PRN ×3 (02:01→13:38)
[2016-06-28] MEDS: LORAZEPAM 2 MG INJ IV PRN ×2 (02:01→22:17)
[2016-06-28] MEDS: PANTOPRAZOLE 40 MG INJ IV SCH (06:17)
[2016-06-28 06:39] LABS: ADD SCAN DIFF NO
[2016-06-28 06:45] LABS: ABNORMAL IP MESSAGE 1; HEMATOCRIT 27.3 % (37.0-47.0); HEMOGLOBIN 8.7 g/dl (12.0-16.0); MEAN CORPUSCULAR HEMOGLOBIN 28.3 pg (29.0-33.0); MEAN CORPUSCULAR HGB CONC 31.9 g/dl (32.0-37.0); MEAN CORPUSCULAR VOLUME 88.9 fl (82.0-101.0); MEAN PLATELET VOLUME 11.2 fl (7.4-10.4); PLATELET COUNT 188 10^3/UL (140-415); RED BLOOD COUNT 3.07 10^6/ul (4.20-5.40); RED CELL DISTRIBUTION WIDTH 15.5 % (11.5-14.5); WHITE BLOOD COUNT 39.9 10^3/ul (4.8-10.8)
[2016-06-28 07:01] LABS: POTASSIUM 3.4 mmol/L (3.5-5.1)
[2016-06-28 07:03] LABS: CREATININE 0.67 mg/dl (0.44-1.00)
[2016-06-28 07:04] LABS: CALCIUM 8.5 mg/dl (8.4-10.2)
[2016-06-28 08:00] VITALS: BP 146/86; PULSE 101; RESP 18
[2016-06-28] MEDS: CALCIUM CARBONATE 750 MG CHEW TAB PO SCH (08:55)
[2016-06-28] MEDS: POLYETHYLENE GLYCOL 17 GM PACKET PO SCH (08:55)
[2016-06-28] MEDS: DEXTROSE 5%-0.9% NACL 1,000 ML IV SCH ×2 (08:56→21:52)
[2016-06-28 09:34] LABS: LYMPHOCYTES # 1.2 10^3/ul (0.8-2.9); MONOCYTE # 0.8 10^3/ul (0.3-0.9); NEUTROPHIL # 34.3 10^3/ul (1.6-7.5)
[2016-06-28] MEDS: METOCLOPRAMIDE 10 MG INJ IV PRN ×2 (09:53→15:53)
--- NOTE | 2016-06-28 11:33 | PN ---
Date/Time of Note Date/Time of Note DATE: 06/28/16 TIME: 11:32 Assessment/Plan VTE Prophylaxis VTE Prophylaxis Intervention: anti-embolic stocking Lines/Catheters IV Catheter Type (from Nrs): PORTACATH Urinary Cath still in place: No Assessment/Plan Assessment/Plan 46yo BRCA negative female with essentially triple negative high risk T2No breast cancer of L breast s/p partial mastectomy s/p 3 cycles of dose dense AC last 06/25/16 admitted for intractable N/V despite Akynzeo and 15% dose reduction. - neulasta given and wbc now expectedly at 33 - continue zofran and reglan prn, can also use ativan prn nausea or anxiety, will add scop patch - continue fluids and electrolyte replacement - consider switching to TC as patient cannot tolerate AC vs. skipping fourth cycle of AC and proceeding with weekly taxol -patient also with chest wall pain above port. CXR 06/25/16 showed 1. Mild cardiac silhouette enlargement without evidence for acute intrathoracic pathology. continue supportive care. Subjective 24 Hr Interval Summary Gastrointestinal: decreased appetite, nausea, vomiting Exam/Review of Systems Vital Signs Vitals Vital Signs Date Time Temp Pulse Resp B/P Pulse Ox O2 Delivery O2 Flow Rate FiO2 06/27/16 07:00 99.0 105 20 130/65 99 06/26/16 02:45 Room Air Intake and Output 06/27/16 06/27/16 06/28/16 15:00 23:00 07:00 Intake Total 1720 ml 1110 ml Balance 1720 ml 1110 ml Exam Constitutional: alert, oriented Psych: no complaints Eyes: nl conjunctiva Neck: supple Respiratory: normal air movement Results Result Diagram: 06/28/16 0610 06/28/16 0610 Results 24 hrs Laboratory Tests Test 06/28/16 06:10 White Blood Count 39.9 #H Red Blood Count 3.07 L Hemoglobin 8.7 L Hematocrit 27.3 L Mean Corpuscular Volume 88.9 Mean Corpuscular Hemoglobin 28.3 L Mean Corpuscular Hemoglobin Concent 31.9 L Red Cell Distribution Width 15.5 H Platelet Count 188 Mean Platelet Volume 11.2 H Neutrophils % 86.0 H Band Neutrophils % 9.0 H Lymphocytes % 3.0 L Monocytes % 2.0 Eosinophils % Neutrophils # 34.3 H Lymphocytes # 1.2 Monocytes # 0.8 Eosinophils # Sodium Level 141 Potassium Level 3.4 L Chloride Level 106 Carbon Dioxide Level 24 Anion Gap 14 Blood Urea Nitrogen 8 Creatinine 0.67 Glucose Level 95 Calcium Level 8.5 Medications Medications Current Medications Acetaminophen 650 mg 650 mg Q4H PRN PO PAIN AND OR ELEVATED TEMP Last administered on 06/27/16 08:13; Admin Dose 650 MG; Start 06/26/16 at 04:00 Dextrose/Sodium Chloride (D5-NS) 1,000 ml @ 75 mls/hr [id number] IV Last administered on 06/28/16 08:56; Admin Dose 75 MLS/HR; Start 06/26/16 at 04:00 Ondansetron HCl (Zofran Inj) 4 mg Q4H PRN IV NAUSEA AND/OR VOMITING Last administered on 06/28/16 08:55; Admin Dose 4 MG; Start 06/26/16 at 04:00 Metoclopramide HCl (Reglan) 10 mg Q6H PRN IV NAUSEA Last administered on 09:53; Admin Dose 10 MG; Start 06/26/16 at 04:00 Pantoprazole (Protonix Iv) 40 mg DAILY@06 IV Last administered on 06/28/16 06: 17; Admin Dose 40 MG; Start 06/26/16 at 06:00 Lorazepam (Ativan) 1 mg Q6H PRN IV ANXIETY Last administered on 06/28/16 02:01 ; Admin Dose 1 MG; Start 06/26/16 at 04:00 Lactulose (Enulose) 10 gm DAILY PRN PO CONSTIPATION; Start 06/26/16 at 04:00 Polyethylene Glycol (Miralax) 17 gm DAILY PO Last administered on 06/26/16 08: 33; Admin Dose 17 GM; Start 06/26/16 at 09:00 Diphenhydramine HCl (Benadryl) 25 mg Q6H PRN PO ITCHING; Start 06/26/16 at 05: 00 Calcium Carbonate (Tums Ex) 750 mg DAILY PO Last administered on 06/28/16 08: 55; Admin Dose 750 MG; Start 06/26/16 at 09:00 Phenol (Cepastat Lozenge) 1 lozenge Q1H PRN MT sorethroat Last administered on 06/27/16 17:45; Admin Dose 1 LOZENGE; Start 06/27/16 at 17:30 REBEKAH CMMULLEN MD Jun 28, 2016 11:32
[2016-06-28] MEDS ORDERED: SCOPOLAMINE 1.5 MG PATCH TRANSDERM ONE (12:00)
--- NOTE | 2016-06-28 13:39 | PN ---
Date/Time of Note Date/Time of Note DATE: 06/28/16 TIME: 13:38 Assessment/Plan VTE Prophylaxis VTE Prophylaxis Intervention: other Lines/Catheters IV Catheter Type (from Nrs): PORTACATH Urinary Cath still in place: No Assessment/Plan Chief Complaint/Hosp Course IMPRESSION: 1. Leukocytosis. 2. Nausea and vomiting, possibly due to chemotherapy. 3. Breast carcinoma, on chemotherapy. 4. Dyspepsia. plan per oncology Problems: Subjective 24 Hr Interval Summary Subjective hx not possible: other (seen yesterday note not saved) Respiratory: no complaints Cardiovascular: no complaints Gastrointestinal: no complaints Exam/Review of Systems Vital Signs Vitals Vital Signs Date Time Temp Pulse Resp B/P Pulse Ox O2 Delivery O2 Flow Rate FiO2 06/27/16 07:00 99.0 105 20 130/65 99 06/26/16 02:45 Room Air Intake and Output 06/27/16 06/27/16 06/28/16 15:00 23:00 07:00 Intake Total 1720 ml 1110 ml Balance 1720 ml 1110 ml Exam Respiratory: clear to auscultation Cardiovascular: regular rate and rhythm Gastrointestinal: soft Musculoskeletal: nl extremities to inspection Results Result Diagram: 06/28/16 0610 06/28/16 0610 Results 24 hrs Laboratory Tests Test 06/28/16 06:10 White Blood Count 39.9 #H Red Blood Count 3.07 L Hemoglobin 8.7 L Hematocrit 27.3 L Mean Corpuscular Volume 88.9 Mean Corpuscular Hemoglobin 28.3 L Mean Corpuscular Hemoglobin Concent 31.9 L Red Cell Distribution Width 15.5 H Platelet Count 188 Mean Platelet Volume 11.2 H Neutrophils % 86.0 H Band Neutrophils % 9.0 H Lymphocytes % 3.0 L Monocytes % 2.0 Eosinophils % Neutrophils # 34.3 H Lymphocytes # 1.2 Monocytes # 0.8 Eosinophils # Sodium Level 141 Potassium Level 3.4 L Chloride Level 106 Carbon Dioxide Level 24 Anion Gap 14 Blood Urea Nitrogen 8 Creatinine 0.67 Glucose Level 95 Calcium Level 8.5 Medications Medications Current Medications Acetaminophen 650 mg 650 mg Q4H PRN PO PAIN AND OR ELEVATED TEMP Last administered on 06/27/16t 08:13; Admin Dose 650 MG; Start 06/26/16 at 04:00 Dextrose/Sodium Chloride (D5-NS) 1,000 ml @ 75 mls/hr [id number] IV Last administered on 06/28/16 08:56; Admin Dose 75 MLS/HR; Start 06/26/16 at 04:00 Ondansetron HCl (Zofran Inj) 4 mg Q4H PRN IV NAUSEA AND/OR VOMITING Last administered on 06/28/16 08:55; Admin Dose 4 MG; Start 06/26/16 at 04:00 Metoclopramide HCl (Reglan) 10 mg Q6H PRN IV NAUSEA Last administered on 09:53; Admin Dose 10 MG; Start 06/26/16 at 04:00 Pantoprazole (Protonix Iv) 40 mg DAILY@06 IV Last administered on 06/28/16 06: 17; Admin Dose 40 MG; Start 06/26/16 at 06:00 Lorazepam (Ativan) 1 mg Q6H PRN IV ANXIETY Last administered on 06/28/16 02:01 ; Admin Dose 1 MG; Start 06/26/16 at 04:00 Lactulose (Enulose) 10 gm DAILY PRN PO CONSTIPATION; Start 06/26/16 at 04:00 Polyethylene Glycol (Miralax) 17 gm DAILY PO Last administered on 06/26/16 08: 33; Admin Dose 17 GM; Start 06/26/16 at 09:00 Diphenhydramine HCl (Benadryl) 25 mg Q6H PRN PO ITCHING; Start 06/26/16 at 05: 00 Calcium Carbonate (Tums Ex) 750 mg DAILY PO Last administered on 06/28/16 08: 55; Admin Dose 750 MG; Start 06/26/16 at 09:00 Phenol 1 lozenge 1 lozenge Q1H PRN MT sorethroat Last administered on 17:45; Admin Dose 1 LOZENGE; Start 06/27/16 at 17:30 Potassium Chloride (KCl 40 MEQ/250 ML NS) 250 ml @ 62.5 mls/hr ONCE ONCE IVPB ; Start 06/28/16 at 14:00; Stop 06/28/16 at 17:59 FAIZA MEJIA MD Jun 28, 2016 13:39
--- NOTE | 2016-06-28 13:40 | PN ---
Date/Time of Note Date/Time of Note DATE: 06/28/16 TIME: 13:39 Assessment/Plan VTE Prophylaxis VTE Prophylaxis Intervention: other Lines/Catheters IV Catheter Type (from Nrs): PORTACATH Urinary Cath still in place: No Assessment/Plan Chief Complaint/Hosp Course IMPRESSION: 1. Leukocytosis. inc 2. Nausea and vomiting, possibly due to chemotherapy. 3. Breast carcinoma, on chemotherapy. 4. Dyspepsia. 5 hypokalemia plan per oncology ck labs kcl Problems: Subjective 24 Hr Interval Summary Gastrointestinal: nausea (+) Exam/Review of Systems Vital Signs Vitals Vital Signs Date Time Temp Pulse Resp B/P Pulse Ox O2 Delivery O2 Flow Rate FiO2 06/27/16 07:00 99.0 105 20 130/65 99 06/26/16 02:45 Room Air Intake and Output 06/27/16 06/27/16 06/28/16 15:00 23:00 07:00 Intake Total 1720 ml 1110 ml Balance 1720 ml 1110 ml Exam Respiratory: clear to auscultation Cardiovascular: regular rate and rhythm Gastrointestinal: soft Musculoskeletal: nl extremities to inspection Results Result Diagram: 06/28/16 0610 06/28/16 0610 Results 24 hrs Laboratory Tests Test 06/28/16 06:10 White Blood Count 39.9 #H Red Blood Count 3.07 L Hemoglobin 8.7 L Hematocrit 27.3 L Mean Corpuscular Volume 88.9 Mean Corpuscular Hemoglobin 28.3 L Mean Corpuscular Hemoglobin Concent 31.9 L Red Cell Distribution Width 15.5 H Platelet Count 188 Mean Platelet Volume 11.2 H Neutrophils % 86.0 H Band Neutrophils % 9.0 H Lymphocytes % 3.0 L Monocytes % 2.0 Eosinophils % Neutrophils # 34.3 H Lymphocytes # 1.2 Monocytes # 0.8 Eosinophils # Sodium Level 141 Potassium Level 3.4 L Chloride Level 106 Carbon Dioxide Level 24 Anion Gap 14 Blood Urea Nitrogen 8 Creatinine 0.67 Glucose Level 95 Calcium Level 8.5 Medications Medications Current Medications Acetaminophen 650 mg 650 mg Q4H PRN PO PAIN AND OR ELEVATED TEMP Last administered on 06/27/16 08:13; Admin Dose 650 MG; Start 06/26/16 at 04:00 Dextrose/Sodium Chloride (D5-NS) 1,000 ml @ 75 mls/hr [id number] IV Last administered on 06/28/16 08:56; Admin Dose 75 MLS/HR; Start 06/26/16 at 04:00 Ondansetron HCl (Zofran Inj) 4 mg Q4H PRN IV NAUSEA AND/OR VOMITING Last administered on 06/28/16 08:55; Admin Dose 4 MG; Start 06/26/16 at 04:00 Metoclopramide HCl (Reglan) 10 mg Q6H PRN IV NAUSEA Last administered on 09:53; Admin Dose 10 MG; Start 06/26/16 at 04:00 Pantoprazole (Protonix Iv) 40 mg DAILY@06 IV Last administered on 06/28/16 06: 17; Admin Dose 40 MG; Start 06/26/16 at 06:00 Lorazepam (Ativan) 1 mg Q6H PRN IV ANXIETY Last administered on 06/28/16 02:01 ; Admin Dose 1 MG; Start 06/26/16 at 04:00 Lactulose (Enulose) 10 gm DAILY PRN PO CONSTIPATION; Start 06/26/16 at 04:00 Polyethylene Glycol (Miralax) 17 gm DAILY PO Last administered on 06/26/16 08: 33; Admin Dose 17 GM; Start 06/26/16 at 09:00 Diphenhydramine HCl (Benadryl) 25 mg Q6H PRN PO ITCHING; Start 06/26/16 at 05: 00 Calcium Carbonate (Tums Ex) 750 mg DAILY PO Last administered on 06/28/16 08: 55; Admin Dose 750 MG; Start 06/26/16 at 09:00 Phenol 1 lozenge 1 lozenge Q1H PRN MT sorethroat Last administered on 17:45; Admin Dose 1 LOZENGE; Start 06/27/16 at 17:30 Potassium Chloride (KCl 40 MEQ/250 ML NS) 250 ml @ 62.5 mls/hr ONCE ONCE IVPB ; Start 06/28/16 at 14:00; Stop 06/28/16 at 17:59 FAIZA MEJIA MD Jun 28, 2016 13:40
[2016-06-28] MEDS ORDERED: POTASSIUM CHLORIDE 250 ML IVPB ONE (14:00)
[2016-06-28 19:48] VITALS: BP 132/74; RESP 16
[2016-06-28] MEDS: ACETAMINOPHEN 325 MG TAB PO PRN (20:06)
[2016-06-29] MEDS ORDERED: VITAMIN A & D 5 GM OINT PACKET TOP ONE (05:28)
[2016-06-29] MEDS ORDERED: ALTEPLASE (CATHFLO) 2 MG INJ CATHETER PRN (06:00)
[2016-06-29 06:06] LABS: ADD SCAN DIFF NO
[2016-06-29 06:18] LABS: ABNORMAL IP MESSAGE 1; HEMATOCRIT 28.1 % (37.0-47.0); HEMOGLOBIN 9.1 g/dl (12.0-16.0); MEAN CORPUSCULAR HEMOGLOBIN 28.1 pg (29.0-33.0); MEAN CORPUSCULAR HGB CONC 32.4 g/dl (32.0-37.0); MEAN CORPUSCULAR VOLUME 86.7 fl (82.0-101.0); MEAN PLATELET VOLUME 11.5 fl (7.4-10.4); PLATELET COUNT 191 10^3/UL (140-415); RED BLOOD COUNT 3.24 10^6/ul (4.20-5.40); RED CELL DISTRIBUTION WIDTH 15.1 % (11.5-14.5); WHITE BLOOD COUNT 33.4 10^3/ul (4.8-10.8)
[2016-06-29 07:33] LABS: CREATININE 0.64 mg/dl (0.44-1.00); POTASSIUM 3.7 mmol/L (3.5-5.1)
[2016-06-29 07:49] VITALS: BP 113/58; RESP 18
[2016-06-29] MEDS: CALCIUM CARBONATE 750 MG CHEW TAB PO SCH (08:31)
[2016-06-29] MEDS: POLYETHYLENE GLYCOL 17 GM PACKET PO SCH (09:32)
[2016-06-29 09:43] LABS: NEUTROPHIL # 28.1 10^3/ul (1.6-7.5)
[2016-06-29] MEDS: PANTOPRAZOLE 40 MG INJ IV SCH (10:31)
[2016-06-29] MEDS: ONDANSETRON 4 MG INJ IV PRN ×2 (10:44→18:15)
[2016-06-29] MEDS: ACETAMINOPHEN 325 MG TAB PO PRN ×2 (11:48→19:15)
[2016-06-29] MEDS: DEXTROSE 5%-0.9% NACL 1,000 ML IV SCH (11:49)
--- NOTE | 2016-06-29 12:30 | CONS ---
Date/Time of Note Date/Time of Note DATE: 06/29/16 TIME: 12:29 Assessment/Plan Assessment/Plan Chief Complaint/Hosp Course Assessment/Plan 46yo BRCA negative female with essentially triple negative high risk T2No breast cancer of L breast s/p partial mastectomy s/p 3 cycles of dose dense AC last 06/25/16 admitted for intractable N/V despite Akynzeo and 15% dose reduction. - neulasta given and wbc now expectedly at 33 - continue zofran and reglan prn, can also use ativan prn nausea or anxiety, added scop patch - continue fluids and electrolyte replacement. BCx neg x 3 days. - consider switching to TC as patient cannot tolerate AC vs. skipping fourth cycle of AC and proceeding with weekly taxol - patient also with chest wall pain above port. CXR 06/25/16 showed 1. Mild cardiac silhouette enlargement without evidence for acute intrathoracic pathology. US 06/26/16 showed no evidence of fluid collection to suggest abscess. - continue supportive care. Problems: Consultation Date/Type/Reason Admit Date/Time Jun 26, 2016 at 00:53 Initial Consult Date 06/26/16 Type of Consultation: Oncology 24 HR Interval Summary Free Text/Dictation Patient still has nausea/vomiting x 2 today, though improved since yesterday. Exam/Review of Systems Vital Signs Vitals Vital Signs Date Time Temp Pulse Resp B/P Pulse Ox O2 Delivery O2 Flow Rate FiO2 06/29/16 07:49 98.2 88 18 113/58 98 06/28/16 08:00 Room Air Intake and Output 06/28/16 06/28/16 06/29/16 15:00 23:00 07:00 Intake Total 1400 ml 1500 ml Output Total 500 ml Balance 900 ml 1500 ml Exam Constitutional: alert, oriented Head: normocephalic Eyes: nl conjunctiva Neck: supple Respiratory: clear to auscultation Cardiovascular: regular rate and rhythm Gastrointestinal: soft, tender Musculoskeletal: nl extremities to inspection Results Result Diagram: 06/29/16 0451 06/29/16 0451 Results 24 hrs Laboratory Tests Test 06/29/16 04:51 White Blood Count 33.4 H Red Blood Count 3.24 L Hemoglobin 9.1 L Hematocrit 28.1 L Mean Corpuscular Volume 86.7 Mean Corpuscular Hemoglobin 28.1 L Mean Corpuscular Hemoglobin Concent 32.4 Red Cell Distribution Width 15.1 H Platelet Count 191 Mean Platelet Volume 11.5 H Neutrophils % 84.0 H Band Neutrophils % 13.0 H Lymphocytes % 3.0 L Monocytes % Eosinophils % Neutrophils # 28.1 H Lymphocytes # 1.0 Monocytes # Eosinophils # Sodium Level 140 Potassium Level 3.7 Chloride Level 108 Carbon Dioxide Level 25 Anion Gap 11 Blood Urea Nitrogen 7 Creatinine 0.64 Glucose Level 88 Calcium Level 9.0 Medications Medications Current Medications Acetaminophen 650 mg 650 mg Q4H PRN PO PAIN AND OR ELEVATED TEMP Last administered on 06/29/16 11:48; Admin Dose 650 MG; Start 06/26/16 at 04:00 Dextrose/Sodium Chloride (D5-NS) 1,000 ml @ 75 mls/hr [id number] IV Last administered on 06/29/16 11:49; Admin Dose 75 MLS/HR; Start 06/26/16 at 04:00 Ondansetron HCl (Zofran Inj) 4 mg Q4H PRN IV NAUSEA AND/OR VOMITING Last administered on 06/29/16 10:44; Admin Dose 4 MG; Start 06/26/16 at 04:00 Metoclopramide HCl (Reglan) 10 mg Q6H PRN IV NAUSEA Last administered on 15:53; Admin Dose 10 MG; Start 06/26/16 at 04:00 Pantoprazole (Protonix Iv) 40 mg DAILY@06 IV Last administered on 06/29/16 10: 31; Admin Dose 40 MG; Start 06/26/16 at 06:00 Lorazepam (Ativan) 1 mg Q6H PRN IV ANXIETY Last administered on 06/28/16 22:17 ; Admin Dose 1 MG; Start 06/26/16 at 04:00 Lactulose (Enulose) 10 gm DAILY PRN PO CONSTIPATION; Start 06/26/16 at 04:00 Polyethylene Glycol (Miralax) 17 gm DAILY PO Last administered on 06/29/16 09: 32; Admin Dose 17 GM; Start 06/26/16 at 09:00 Diphenhydramine HCl (Benadryl) 25 mg Q6H PRN PO ITCHING; Start 06/26/16 at 05: 00 Calcium Carbonate (Tums Ex) 750 mg DAILY PO Last administered on 06/29/16 08: 31; Admin Dose 750 MG; Start 06/26/16 at 09:00 Phenol (Cepastat Lozenge) 1 lozenge Q1H PRN MT sorethroat Last administered on 06/27/16 17:45; Admin Dose 1 LOZENGE; Start 06/27/16 at 17:30 SERGEY BOWSER MD Jun 29, 2016 12:30
--- NOTE | 2016-06-29 17:55 | PN ---
Date/Time of Note Date/Time of Note DATE: 06/29/16 TIME: 17:53 Assessment/Plan VTE Prophylaxis VTE Prophylaxis Intervention: other Lines/Catheters IV Catheter Type (from Nrs): Peripheral IV Urinary Cath still in place: No Assessment/Plan Chief Complaint/Hosp Course IMPRESSION: 1. Leukocytosis. inc 2. Nausea and vomiting, possibly due to chemotherapy. 3. Breast carcinoma, on chemotherapy. 4. Dyspepsia. 5 hypokalemia better plan per oncology ck labs Problems: Subjective 24 Hr Interval Summary Gastrointestinal: decreased appetite, nausea Exam/Review of Systems Vital Signs Vitals Vital Signs Date Time Temp Pulse Resp B/P Pulse Ox O2 Delivery O2 Flow Rate FiO2 06/29/16 07:49 98.2 88 18 113/58 98 06/28/16 08:00 Room Air Intake and Output 06/28/16 06/28/16 06/29/16 15:00 23:00 07:00 Intake Total 1400 ml 1500 ml Output Total 500 ml Balance 900 ml 1500 ml Exam Neck: supple Respiratory: clear to auscultation Cardiovascular: regular rate and rhythm Gastrointestinal: soft Genitourinary - Female: nl adnexae Musculoskeletal: nl extremities to inspection Results Result Diagram: 06/29/16 0451 06/29/16 0451 Results 24 hrs Laboratory Tests Test 06/29/16 04:51 White Blood Count 33.4 H Red Blood Count 3.24 L Hemoglobin 9.1 L Hematocrit 28.1 L Mean Corpuscular Volume 86.7 Mean Corpuscular Hemoglobin 28.1 L Mean Corpuscular Hemoglobin Concent 32.4 Red Cell Distribution Width 15.1 H Platelet Count 191 Mean Platelet Volume 11.5 H Neutrophils % 84.0 H Band Neutrophils % 13.0 H Lymphocytes % 3.0 L Monocytes % Eosinophils % Neutrophils # 28.1 H Lymphocytes # 1.0 Monocytes # Eosinophils # Sodium Level 140 Potassium Level 3.7 Chloride Level 108 Carbon Dioxide Level 25 Anion Gap 11 Blood Urea Nitrogen 7 Creatinine 0.64 Glucose Level 88 Calcium Level 9.0 Medications Medications Current Medications Acetaminophen 650 mg 650 mg Q4H PRN PO PAIN AND OR ELEVATED TEMP Last administered on 06/29/16t 11:48; Admin Dose 650 MG; Start 06/26/16 at 04:00 Dextrose/Sodium Chloride (D5-NS) 1,000 ml @ 75 mls/hr [id number] IV Last administered on 06/29/16 11:49; Admin Dose 75 MLS/HR; Start 06/26/16 at 04:00 Ondansetron HCl (Zofran Inj) 4 mg Q4H PRN IV NAUSEA AND/OR VOMITING Last administered on 06/29/16 10:44; Admin Dose 4 MG; Start 06/26/16 at 04:00 Metoclopramide HCl (Reglan) 10 mg Q6H PRN IV NAUSEA Last administered on 15:53; Admin Dose 10 MG; Start 06/26/16 at 04:00 Pantoprazole (Protonix Iv) 40 mg DAILY@06 IV Last administered on 06/29/16 10: 31; Admin Dose 40 MG; Start 06/26/16 at 06:00 Lorazepam (Ativan) 1 mg Q6H PRN IV ANXIETY Last administered on 06/28/16 22:17 ; Admin Dose 1 MG; Start 06/26/16 at 04:00 Lactulose (Enulose) 10 gm DAILY PRN PO CONSTIPATION; Start 06/26/16 at 04:00 Polyethylene Glycol (Miralax) 17 gm DAILY PO Last administered on 06/29/16 09: 32; Admin Dose 17 GM; Start 06/26/16 at 09:00 Diphenhydramine HCl (Benadryl) 25 mg Q6H PRN PO ITCHING; Start 06/26/16 at 05: 00 Calcium Carbonate (Tums Ex) 750 mg DAILY PO Last administered on 06/29/16 08: 31; Admin Dose 750 MG; Start 06/26/16 at 09:00 Phenol (Cepastat Lozenge) 1 lozenge Q1H PRN MT sorethroat Last administered on 06/27/16 17:45; Admin Dose 1 LOZENGE; Start 06/27/16 at 17:30 FAIZA MEJIA MD Jun 29, 2016 17:55
[2016-06-29 20:12] VITALS: BP 135/68; RESP 18
[2016-06-29] MEDS: LORAZEPAM 2 MG INJ IV PRN (21:58)
[2016-06-30] MEDS: DEXTROSE 5%-0.9% NACL 1,000 ML IV SCH
[2016-06-30 05:36] LABS: ADD SCAN DIFF NO
[2016-06-30 05:57] LABS: ALBUMIN 3.2 g/dl (3.3-4.9); POTASSIUM 3.7 mmol/L (3.5-5.1)
[2016-06-30 05:59] LABS: CREATININE 0.61 mg/dl (0.44-1.00)
[2016-06-30 06:00] LABS: ALBUMIN/GLOBULIN RATIO 1.18; CALCIUM 8.6 mg/dl (8.4-10.2); TOTAL PROTEIN 5.9 g/dl (6.1-8.1)
[2016-06-30] MEDS: ACETAMINOPHEN 325 MG TAB PO PRN ×2 (06:04→12:29)
[2016-06-30] MEDS: PANTOPRAZOLE 40 MG INJ IV SCH (06:04)
[2016-06-30 06:19] LABS: ABNORMAL IP MESSAGE 1; BASOPHILS % 0.5 % (0.0-2.0); EOSINOPHILS % 0.2 % (0.0-7.0); HEMATOCRIT 26.2 % (37.0-47.0); HEMOGLOBIN 8.4 g/dl (12.0-16.0); LYMPHOCYTES # 0.6 10^3/ul (0.8-2.9); LYMPHOCYTES % 6.6 % (15.0-51.0); MEAN CORPUSCULAR HEMOGLOBIN 28.3 pg (29.0-33.0); MEAN CORPUSCULAR HGB CONC 32.1 g/dl (32.0-37.0); MEAN CORPUSCULAR VOLUME 88.2 fl (82.0-101.0); MEAN PLATELET VOLUME 11.9 fl (7.4-10.4); MONOCYTE # 0.3 10^3/ul (0.3-0.9); MONOCYTES % 3.1 % (0.0-11.0); NEUTROPHILS % 84.6 % (39.0-77.0); PLATELET COUNT 160 10^3/UL (140-415); RED BLOOD COUNT 2.97 10^6/ul (4.20-5.40); RED CELL DISTRIBUTION WIDTH 15.1 % (11.5-14.5); WHITE BLOOD COUNT 8.3 10^3/ul (4.8-10.8)
[2016-06-30 07:19] VITALS: BP 142/73; RESP 12
--- NOTE | 2016-06-30 08:59 | CONS ---
Date/Time of Note Date/Time of Note DATE: 06/30/16 TIME: 08:58 Assessment/Plan Assessment/Plan Chief Complaint/Hosp Course Assessment/Plan 46yo BRCA negative female with essentially triple negative high risk T2No breast cancer of L breast s/p partial mastectomy s/p 3 cycles of dose dense AC last 06/25/16 admitted for intractable N/V despite Akynzeo and 15% dose reduction. - neulasta given 06/26/16 - continue zofran and reglan prn, can also use ativan prn nausea or anxiety, added scop patch - ok to d/c IV fluids and allow patient to ambulate - consider switching to TC as patient cannot tolerate AC vs. skipping fourth cycle of AC and proceeding with weekly taxol - patient also with chest wall pain above port. CXR 06/25/16 showed 1. Mild cardiac silhouette enlargement without evidence for acute intrathoracic pathology. US 06/26/16 showed no evidence of fluid collection to suggest abscess. - continue supportive care. - pt to follow up with me in clinic early next week - ok to discharge from oncology persepctive Problems: Consultation Date/Type/Reason Admit Date/Time Jun 26, 2016 at 00:53 Initial Consult Date 06/26/16 Type of Consultation: Oncology 24 HR Interval Summary Free Text/Dictation Patient doing well, decreased nausea, no vomiting. She feels ready to go home and would like to walk around. Exam/Review of Systems Vital Signs Vitals Vital Signs Date Time Temp Pulse Resp B/P Pulse Ox O2 Delivery O2 Flow Rate FiO2 06/30/16 07:19 97.5 89 12 142/73 100 06/28/16 08:00 Room Air Intake and Output 06/29/16 06/29/16 06/30/16 15:00 23:00 07:00 Intake Total 1530 ml 1620 ml Balance 1530 ml 1620 ml Exam Constitutional: alert, oriented Head: normocephalic Eyes: nl conjunctiva Neck: supple Respiratory: clear to auscultation Cardiovascular: regular rate and rhythm Gastrointestinal: soft, tender Musculoskeletal: nl extremities to inspection Results Result Diagram: 06/30/16 0447 06/30/16 0447 Results 24 hrs Laboratory Tests Test 06/30/16 04:47 White Blood Count 8.3 # Red Blood Count 2.97 L Hemoglobin 8.4 L Hematocrit 26.2 L Mean Corpuscular Volume 88.2 Mean Corpuscular Hemoglobin 28.3 L Mean Corpuscular Hemoglobin Concent 32.1 Red Cell Distribution Width 15.1 H Platelet Count 160 Mean Platelet Volume 11.9 H Neutrophils % 84.6 H Lymphocytes % 6.6 L Monocytes % 3.1 Eosinophils % 0.2 Basophils % 0.5 Nucleated Red Blood Cells % 0.0 Neutrophils # 7.0 Lymphocytes # 0.6 L Monocytes # 0.3 Eosinophils # 0.0 Basophils # 0.0 Nucleated Red Blood Cells # 0.0 Sodium Level 141 Potassium Level 3.7 Chloride Level 106 Carbon Dioxide Level 26 Anion Gap 13 Blood Urea Nitrogen 8 Creatinine 0.61 Glucose Level 108 Calcium Level 8.6 Total Bilirubin 0.0 L Direct Bilirubin 0.00 Indirect Bilirubin 0.0 Aspartate Amino Transf (AST/SGOT) 17 Alanine Aminotransferase (ALT/SGPT) 27 Alkaline Phosphatase 103 Total Protein 5.9 L Albumin 3.2 L Globulin 2.70 Albumin/Globulin Ratio Pending Medications Medications Current Medications Acetaminophen 650 mg 650 mg Q4H PRN PO PAIN AND OR ELEVATED TEMP Last administered on 06/30/16 06:04; Admin Dose 650 MG; Start 06/26/16 at 04:00 Dextrose/Sodium Chloride (D5-NS) 1,000 ml @ 75 mls/hr [id number] IV Last administered on 06/30/16 00:00; Admin Dose 75 MLS/HR; Start 06/26/16 at 04:00 Ondansetron HCl (Zofran Inj) 4 mg Q4H PRN IV NAUSEA AND/OR VOMITING Last administered on 06/29/16 18:15; Admin Dose 4 MG; Start 06/26/16 at 04:00 Metoclopramide HCl (Reglan) 10 mg Q6H PRN IV NAUSEA Last administered on 15:53; Admin Dose 10 MG; Start 06/26/16 at 04:00 Pantoprazole (Protonix Iv) 40 mg DAILY@06 IV Last administered on 06/30/16 06: 04; Admin Dose 40 MG; Start 06/26/16 at 06:00 Lorazepam (Ativan) 1 mg Q6H PRN IV ANXIETY Last administered on 06/29/16 21:58 ; Admin Dose 1 MG; Start 06/26/16 at 04:00 Lactulose (Enulose) 10 gm DAILY PRN PO CONSTIPATION; Start 06/26/16 at 04:00 Polyethylene Glycol (Miralax) 17 gm DAILY PO Last administered on 06/29/16 09: 32; Admin Dose 17 GM; Start 06/26/16 at 09:00 Diphenhydramine HCl (Benadryl) 25 mg Q6H PRN PO ITCHING; Start 06/26/16 at 05: 00 Calcium Carbonate (Tums Ex) 750 mg DAILY PO Last administered on 06/29/16 08: 31; Admin Dose 750 MG; Start 06/26/16 at 09:00 Phenol (Cepastat Lozenge) 1 lozenge Q1H PRN MT sorethroat Last administered on 06/27/16 17:45; Admin Dose 1 LOZENGE; Start 06/27/16 at 17:30 SERGEY BOWSER MD Jun 30, 2016 08:58
[2016-06-30] MEDS: POLYETHYLENE GLYCOL 17 GM PACKET PO SCH (09:00)
[2016-06-30] MEDS: CALCIUM CARBONATE 750 MG CHEW TAB PO SCH (09:18)
--- NOTE | 2016-06-30 17:16 | PDOCDIS ---
Discharge Instructions CONDITION Patient Condition: Stable HOME CARE INSTRUCTIONS: Diet Instructions: Regular ACTIVITY: Activity Restrictions: Slowly Increase Activity Rest between Activity Avoid heavy lifting Avoid Heavy Housework Bathing Restrictions: Shower FOLLOW UP/APPOINTMENTS Appointments f/u pcp 1 wk see TO 1 wk FAIZA MEJIA MD Jun 30, 2016 17:16
[2016-06-30] MEDS ORDERED: HEPARIN (100 UNITS/ML) 5 ML SYG CATHETER ONE (18:30)
== END 2016-06-30 19:00 | disposition home or self-care (01) | DRG 392 ==
LOC: E/R 20:41 → MS1 06-26 00:53
PROVIDERS: ADMIT Internal Medicine Nephrology; ATTEND Internal Medicine Nephrology
DX: R11.2 Nausea with vomiting, unspecified (principal); C50.912 Malignant neoplasm of unspecified site of left female breast; D72.829 Elevated white blood cell count, unspecified; D64.9 Anemia, unspecified; E87.6 Hypokalemia; R10.12 Left upper quadrant pain; Z79.899 Other long term (current) drug therapy; R10.13 Epigastric pain; T45.1X5A Adverse effect of antineoplastic and immunosuppressive drugs, initial encounter
CPT/HCPCS: 36415; 71010; 76536; 80048; 80053; 81003; 83690; 85025; 87040; 96374; 96375; 96376; C9113; J0692; J1642; J2060; J2270; J2405; J2765; J2997; J3480; J7030; J7042

== ENCOUNTER 2016-08-03 20:42 | Inpatient (IN) | payer OTHER ==
[~2016-08-03] VITALS: Ht 170.2 cm; Wt 111.3 kg
[~2016-08-03 20:42] MED LIST changes: -BENZ1LOZ4 MT; -CALC300T4 PO; -DIPH25CA6 PO; -DOCU-216 PO; +LACT10SO5 PO; -LORA0.5T PO
[2016-08-03] MEDS ORDERED: ASPIRIN 325 MG TAB PO STA (21:23)
[2016-08-03 22:08] LABS: ADD SCAN DIFF NO
[2016-08-03 22:10] LABS: BASOPHILS % 0.2 % (0.0-2.0); EOSINOPHILS # 0.1 10^3/ul (0.0-0.5); EOSINOPHILS % 1.1 % (0.0-7.0); HEMATOCRIT 28.4 % (37.0-47.0); HEMOGLOBIN 8.9 g/dl (12.0-16.0); LYMPHOCYTES # 0.7 10^3/ul (0.8-2.9); LYMPHOCYTES % 7.7 % (15.0-51.0); MEAN CORPUSCULAR HEMOGLOBIN 27.8 pg (29.0-33.0); MEAN CORPUSCULAR HGB CONC 31.3 g/dl (32.0-37.0); MEAN CORPUSCULAR VOLUME 88.8 fl (82.0-101.0); MEAN PLATELET VOLUME 11.3 fl (7.4-10.4); MONOCYTE # 0.7 10^3/ul (0.3-0.9); MONOCYTES % 7.5 % (0.0-11.0); NEUTROPHIL # 7.4 10^3/ul (1.6-7.5); NEUTROPHILS % 82.4 % (39.0-77.0); PLATELET COUNT 226 10^3/UL (140-415); RED CELL DISTRIBUTION WIDTH 17.3 % (11.5-14.5); WHITE BLOOD COUNT 8.9 10^3/ul (4.8-10.8)
[2016-08-03 22:28] LABS: CALCIUM 9.1 mg/dl (8.4-10.2); CREATININE 0.8 mg/dl (0.44-1.00); POTASSIUM 3.7 mmol/L (3.5-5.1)
[2016-08-03] MEDS ORDERED: TRAM-40 PO (22:36)
[2016-08-03] MEDS ORDERED: PROC10TA10 PO (22:36)
--- NOTE | 2016-08-03 22:43 | RADRPT ---
PROCEDURE: XR Chest AP portable CLINICAL INDICATION: Chest pain TECHNIQUE: An AP portable radiograph of the chest was submitted. COMPARISON: 06/25/2016 FINDINGS: Support Hardware: On the right-sided Port-A-Cath is stable in positioning. Cardiovascular: The cardiovascular silhouette appears stable and unremarkable. Lung Eugene: The lung eugene appear clear with no nodule, alveolar infiltrate, or interstitial promi nence evident. Pleural Spaces: No pneumothorax or pleural effusion is identified. Osseous Structures: The osseous structures appear intact. Soft Tissues: The soft tissues appear generous. IMPRESSION: 1. The right-sided Port-A-Cath stable in positioning. 2. Otherwise, stable and unremarkable portable chest. Physician Yesica Date Time Electronically viewed and signed by Jh Shepard Physician on 08/03/2016 22:43 /
[2016-08-03] MEDS ORDERED: DOCU100T PO (22:44)
[2016-08-03] MEDS ORDERED: FER325 PO (22:44)
[2016-08-03] MEDS ORDERED: CHOL100062 PO (22:44)
[2016-08-03] MEDS ORDERED: MULTI PO (22:44)
[2016-08-03 22:45] LABS: TROPONIN-I 0.044 ng/ml (0.00-0.12)
[2016-08-03 22:51] LABS: INR 0.98
[2016-08-03 22:52] LABS: PARTIAL THROMBOPLASTIN TIME 28.9 Sec (25.0-35.0)
[2016-08-03] MEDS ORDERED: HYDR-906 PO (22:56)
[2016-08-03] MEDS ORDERED: SOD CHLORIDE 0.9% 100 ML ONE (23:28)
[2016-08-03] MEDS ORDERED: IOHEXOL 300MG/ML 150 ML BTL ONE (23:28)
[2016-08-04] VITALS (10 sets, daily range): BP systolic 92–132; BP diastolic 51–75; PULSE 74–111; RESP 17–20; Ht 170.2 cm; Wt 111.3 kg
[2016-08-04] MEDS ORDERED: LORAZEPAM 2 MG INJ IV ONE
[2016-08-04] MEDS ORDERED: DIPHENHYDRAMINE 50 MG INJ ONE (00:25)
[2016-08-04] MEDS ORDERED: DIPHENHYDRAMINE 50 MG INJ IV ONE (01:00)
--- NOTE | 2016-08-04 01:18 | RADRPT ---
PROCEDURE: CT angiogram of the chest with contrast. CLINICAL INDICATION: Chest pain. TECHNIQUE: CT angiogram of the chest was obtained using a multi-detector high-resolution CT. Con tiguous axial images were obtained during the dynamic injection of 100 cc of Omnipaque 300 intraveno us contrast. Coronal and sagittal reformatted images were obtained. 3-D reformatted images were al so obtained. Images were reviewed on a PACS workstation. One or more of the following dose reduction techniques were used: - Automated exposure control. - Adjustment of the mA and/or kV according to patient size. - Use of iterative reconstruction technique. Exam CTD/vol = 19.97 mGy. Total exam DLP = 764.69 mGy-cm. COMPARISON: None. FINDINGS: The main pulmonary artery followed to the segmental divisions are well opacified. There is no filli ng defect or evidence of pulmonary embolism. The heart is mildly enlarged with a small pericardial effusion. The aorta is of normal course and caliber without evidence of aneurysm or dissection. There is a right-sided torri-catheter. The visualized thyroid is unremarkable. There are no enlarg ed axillary lymph nodes. There are no enlarged mediastinal or hilar lymph nodes by CT criteria. The re is mild bibasilar atelectasis. There is a calcified granuloma within the upper pole of the left l ower lobe. There is no parenchymal consolidation or pleural effusion. The central tracheobronchial tree is within normal limits. Limited evaluation of the upper abdomen demonstrates fatty infiltration of the liver. There are sma ll calcifications within the spleen compatible with old granulomatous disease. IMPRESSION: No evidence of pulmonary embolism or aortic dissection. Mild cardiomegaly and small pericardial effusion. Mild bibasilar atelectasis. Fatty infiltration of the liver. Old granulomatous disease. .Rene Frost MD, MD Date Time Electronically viewed and signed by .Rene Frost MD, MD on 08/04/2016 01:18 .T/
--- NOTE | 2016-08-04 01:23 | RADRPT ---
PROCEDURE: Ultrasound examination of bilateral lower extremities veins with Doppler. CLINICAL INDICATION: Leg pain and swelling. TECHNIQUE: Multiple sonographic images of bilateral lower extremity venous systems were performed with guthrie scale and color Doppler. COMPARISON: None. FINDINGS: Bilateral common femoral, superficial femoral and popliteal veins demonstrate normal color flow, wav eforms, compression and response to augmentation. There is no evidence of deep venous thrombosis. IMPRESSION: No evidence of deep venous thrombosis within bilateral lower extremities. .Rene Frost MD, MD Date Time Electronically viewed and signed by .Rene Frost MD, MD on 08/04/2016 01:23 .T/
--- NOTE | 2016-08-04 02:28 | ERA ---
ER Documentation Chief Complaint Date/Time DATE: 08/04/16 TIME: 02:25 Chief Complaint CP + SOB X3 DAYS WORSE NOW +COUGH. S/P CHEMO 07/13 HPI This is a 46-year-old female who comes in with chest pain shortness breath for 3 days. She said is worse now. She also points of a cough. Patient has history of breast cancer and status post chemo last dose 2 weeks ago. No fevers no chills. She has complained of some mild leg swelling on and off for the past 2 weeks as well. Mild chest pain that is pressure-like. No other current issues. ROS All systems reviewed and are negative except as per history of present illness. Medications Home Meds Active Scripts Lorazepam* (Ativan*) 0.5 Mg Tablet, 0.5 MG PO Q8H Y for ANXIETY for 10 Days, TAB Prov:FAIZA MEJIA MD 06/16/16 Metoclopramide* (Reglan*) 10 Mg Tablet, 10 MG PO AC MEALS for 14 Days, TAB Prov:FAIZA MEJIA MD 06/16/16 Reported Medications Hydrocodone/Acetaminophen ([place] 5-325 Tablet) 1 Each Tablet, 1 EACH PO Q6H for PAIN, TAB 08/03/16 Cholecalciferol* (Vitamin D3*) 1,000 Unit Tablet, 1000 UNIT PO DAILY, TAB 08/03/16 Ferrous Sulfate* (Ferrous Sulfate*) 325 Mg Tabec, 325 MG PO DAILY, TAB 08/03/16 Multivitamins* (Theragran*) 1 Tab Tab, 1 TAB PO DAILY, TAB 08/03/16 Docusate Sodium* (Dok*) 100 Mg Tablet, 100 MG PO BID, #60 CAP 08/03/16 Prochlorperazine* (Prochlorperazine*) 10 Mg Tablet, 10 MG PO TID for NAUSEA AND/ OR VOMITING, TAB 08/03/16 Tramadol Hcl* (Ultram*) 50 Mg Tablet, 50 MG PO Q6H Y for PAIN, TAB 08/03/16 Lactulose* (Lactulose*) 10 Gm/15 Ml Solution, 10 GM PO Q8 Y for PRN, ML 06/25/16 Ondansetron Hcl* (Zofran*) 8 Mg Tablet, 8 MG PO Q8 Y for NAUSEA AND OR VOMITING , TAB 06/13/16 Discontinued Scripts Pantoprazole* (Protonix*) 40 Mg Tablet.dr, 40 MG PO DAILY for 14 Days, TAB Prov:FAIZA MEJIA MD 06/16/16 Polyethylene Glycol* (Miralax*) 17 Gm Powd.pack, 17 GM PO DAILY Y for CONSTIPATION for 14 Days Prov:FAIZA MEJIA MD 06/16/16 Allergies Allergies: Coded Allergies: No Known Allergy (Unverified , 08/03/16) PMhx/Soc History of Surgery: Yes Anesthesia Reaction: No Hx Neurological Disorder: No Hx Respiratory Disorders: No Hx Cardiac Disorders: No Hx Psychiatric Problems: No Hx Miscellaneous Medical Probl: Yes (LEFT BREAST CA , CHEMO) Hx Alcohol Use: No Hx Substance Use: No Hx Tobacco Use: No Smoking Status: Never smoker Physical Exam Vitals Vital Signs Date Time Temp Pulse Resp B/P Pulse Ox O2 Delivery O2 Flow Rate FiO2 08/04/16 00:36 89 18 120/77 99 Nasal Cannula 3.0 08/03/16 23:23 110 16 138/92 99 Nasal Cannula 3.0 08/03/16 21:48 Nasal Cannula 3 08/03/16 20:46 99.2 113 20 129/84 98 Physical Exam Const: [] Head: Atraumatic Eyes: Normal Conjunctiva ENT: Normal External Ears, Nose and Mouth. Neck: Full range of motion..~ No meningismus. Resp: Clear to auscultation bilaterally Cardio: Regular rate and rhythm, no murmurs Abd: Soft, non tender, non distended. Normal bowel sounds Skin: No petechiae or rashes Back: No midline or flank tenderness Ext: No cyanosis, or edema Neur: Awake and alert Psych: Normal Mood and Affect Result Diagram: 08/03/16214508/03/162145 Results 24 hrs Laboratory Tests Test 08/03/16 21:46 08/03/16 23:45 White Blood Count 8.910^3/ul Red Blood Count 3.2010^6/ul Hemoglobin 8.9g/dl Hematocrit 28.4% Mean Corpuscular Volume 88.8fl Mean Corpuscular Hemoglobin 27.8pg Mean Corpuscular Hemoglobin Concent 31.3g/dl Red Cell Distribution Width 17.3% Platelet Count 91464^3/UL Mean Platelet Volume 11.3fl Neutrophils % 82.4% Lymphocytes % 7.7% Monocytes % 7.5% Eosinophils % 1.1% Basophils % 0.2% Nucleated Red Blood Cells % 0.0/100WBC Neutrophils # 7.410^3/ul Lymphocytes # 0.710^3/ul Monocytes # 0.710^3/ul Eosinophils # 0.110^3/ul Basophils # 0.010^3/ul Nucleated Red Blood Cells # 0.010^3/ul Prothrombin Time 13.0Sec Prothrombin Time Ratio 1.0 INR International Normalized Ratio 0.98 Activated Partial Thromboplast Time 28.9Sec Sodium Level 139mmol/L Potassium Level 3.7mmol/L Chloride Level 105mmol/L Carbon Dioxide Level 26mmol/L Anion Gap 12 Blood Urea Nitrogen 10mg/dl Creatinine 0.80mg/dl Glucose Level 181mg/dl Lactic Acid Level 1.8mmol/L 0.9mmol/L Calcium Level 9.1mg/dl Troponin I 0.044ng/ml B-Type Natriuretic Peptide 65PG/ML Current Medications Medications (Trade) Dose Ordered Sig/Liset Route PRN Reason Start Time Stop Time Status Last Admin Dose Admin Aspirin 325 mg 325 mg ONCE STAT PO 08/03/16 21:23 08/03/16 21:24 DC 08/03/16 22:03 Sodium Chloride (NS) 100 ml @ ud STK-MED ONCE .ROUTE 08/03/16 23:28 08/03/16 23:29 DC 08/03/16 23:46 Iohexol (Omnipaque 300mg/ ml) 150 ml STK-MED ONCE .ROUTE 08/03/16 23:28 08/03/16 23:29 DC 08/03/16 23:46 Lorazepam (Ativan) 1 mg ONCE ONCE IV 08/04/16 00:00 08/04/16 00:01 DC Diphenhydramine HCl (Benadryl) 50 mg STK-MED ONCE .ROUTE 08/04/16 00:25 08/04/16 00:26 DC Diphenhydramine HCl (Benadryl) 25 mg ONCE ONCE IV 08/04/16 01:00 08/04/16 01:01 DC 08/04/16 00:35 Procedures/MDM EKG: Rate/Rhythm: Normal Sinus Rhythm QRS, ST, T-waves: No changes consistent w/ acute ischemia Impression: No evidence of ischemia or arrhythmia Chest X-ray 1V Interpreted by me: Soft Tissue: No acute abnormalities Bones: No acute abnormalities Mediastinum/Cardiac Silhouette/Lungs: No acute abnormalities CT shows no evidence of pulmonary embolism Medical decision-makin-year-old female who comes in with chest pain shortness of breath. Even a CT is negative, I am still concerned for PE. Patient will be admitted to Dr. Mejia. Departure Diagnosis: Primary Impression: Chest pain Qualified Code: R07.1 - Chest pain on breathing Condition: Serious BREN GAMING August 04, 2016 02:28
[2016-08-04 03:27] LABS: CK-MB 1.09 ng/ml (0.0-2.4)
[2016-08-04 03:31] LABS: TROPONIN-I 0.04 ng/ml (0.00-0.12)
[2016-08-04] MEDS ORDERED: ONDANSETRON 4 MG TAB PO PRN (05:00)
[2016-08-04] MEDS ORDERED: traMADol 50 MG TAB PO PRN (05:00)
[2016-08-04] MEDS ORDERED: LACTULOSE 30ML CUP PO PRN (05:00)
[2016-08-04] MEDS: PANTOPRAZOLE 40 MG INJ IV SCH (07:05)
[2016-08-04] MEDS: DEXTROSE 5%-0.45% NACL 1,000 ML IV SCH (07:06)
[2016-08-04 07:46] LABS: ADD SCAN DIFF NO
[2016-08-04 07:51] LABS: ABNORMAL IP MESSAGE 1; BASOPHILS % 0.4 % (0.0-2.0); EOSINOPHILS # 0.1 10^3/ul (0.0-0.5); EOSINOPHILS % 1.3 % (0.0-7.0); HEMATOCRIT 28.4 % (37.0-47.0); HEMOGLOBIN 8.9 g/dl (12.0-16.0); LYMPHOCYTES # 0.5 10^3/ul (0.8-2.9); LYMPHOCYTES % 9.6 % (15.0-51.0); MEAN CORPUSCULAR HEMOGLOBIN 27.9 pg (29.0-33.0); MEAN CORPUSCULAR HGB CONC 31.3 g/dl (32.0-37.0); MEAN PLATELET VOLUME 11.6 fl (7.4-10.4); MONOCYTE # 0.6 10^3/ul (0.3-0.9); MONOCYTES % 11.4 % (0.0-11.0); NEUTROPHIL # 4.1 10^3/ul (1.6-7.5); PLATELET COUNT 218 10^3/UL (140-415); RED BLOOD COUNT 3.19 10^6/ul (4.20-5.40); RED CELL DISTRIBUTION WIDTH 17.4 % (11.5-14.5); WHITE BLOOD COUNT 5.4 10^3/ul (4.8-10.8)
[2016-08-04 08:33] LABS: CALCIUM 9.3 mg/dl (8.4-10.2); CREATININE 0.7 mg/dl (0.44-1.00)
[2016-08-04] MEDS ORDERED: ENOXAPARIN 60 MG/0.6 ML SYG SC ONE (09:00)
[2016-08-04] MEDS ORDERED: PROCHLORPERAZINE 10 MG TAB PO SCH (09:00)
[2016-08-04] MEDS: DOCUSATE SODIUM 100 MG CAP PO SCH ×2 (09:27→21:13)
[2016-08-04] MEDS: FERROUS SULFATE (EC) 325 MG TAB PO SCH (09:27)
[2016-08-04] MEDS: PROCHLORPERAZINE 10 MG TAB PO SCH ×3 (09:28→21:13)
[2016-08-04] MEDS: METOCLOPRAMIDE 10 MG TAB PO SCH ×3 (09:28→18:28)
[2016-08-04] MEDS: MULTIVITAMINS THERAPEUTIC TAB PO SCH (09:28)
[2016-08-04] MEDS: CHOLECALCIFEROL 1,000 UNIT TAB PO SCH (09:29)
[2016-08-04] MEDS: HYDROCODONE/APAP (5/325) TAB PO PRN (11:23)
[2016-08-04 11:59] LABS: CK-MB 1.04 ng/ml (0.0-2.4); TROPONIN-I 0.028 ng/ml (0.00-0.12)
--- NOTE | 2016-08-04 16:11 | CONS ---
Date/Time of Note Date/Time of Note DATE: 08/04/16 TIME: 15:57 Assessment/Plan Assessment/Plan Chief Complaint/Hosp Course The patient is a 46 year postmenopausal female (s/p CONCHA/BSO 04/12/15) BRCA negative with left infiltrating ductal carcinoma of the 12 o' clock position ER 10%, [place] negative s/p lumpectomy pT2N0 (0/6 LN) 3.4 cm 04/09/16 poorly differentiated, no lymphovascular invasion, negative margins, with Oncotype Dx score 74 indicating high risk of recurrence, who received ddAC (adriamycin/ cylophosphomide) x 3 complicated by N/V requiring admission despite Akynzeo, IV fluids. She declined taxol x 12 and proceeded with a fourth and final cycle of TC (taxotere/cyclophosphomide) on 07/13/16 with some muscle/bony pains, mucositis and N/V though better than with AC. Now presents with SOB/BELL and localizes sensation of breathing getting "cut off" in throat. Unclear etiology - CT PA negative for PE, showed mild cardiomegaly, small pericardial effusion, mild bibasilar atelectasis - LE dopplers negative for DVT - Would suggest an echocardiogram to evaluate pericardial effusion. Additionally, anthracyclines such as adriamycin can cause heart failure though less likely given only received 60 mg/mg2 x 3. Taxotere can cause fluid retention. - Will also order RUE US given RUE edema. - Query whether symptoms can be explained by bronchospasm or bronchitis given intermittent upper airway nature of dyspnea. Consider empiric doxycycline for bronchitis. Consider pulm consult. Will continue to follow. Problems: Consultation Date/Type/Reason Admit Date/Time August 04, 2016 at 02:14 Date of Consultation: August 04, 2016 Type of Consultation: Oncology Reason for Consultation Shortness of breath, history of breast cancer Hx of Present Illness The patient is a 46 year postmenopausal female (s/p CONCHA/BSO 04/12/15) BRCA negative with left infiltrating ductal carcinoma of the 12 o' clock position ER 10%, [place] negative s/p lumpectomy pT2N0 (0/6 LN) 3.4 cm 04/09/16 poorly differentiated, no lymphovascular invasion, negative margins, with Oncotype Dx score 74 indicating high risk of recurrence, who received ddAC (adriamycin/ cylophosphomide) x 3 complicated by N/V requiring admission despite Akynzeo, IV fluids. She declined taxol x 12 and proceeded with a fourth and final cycle of TC (taxotere/cyclophosphomide) on 07/13/16 with some muscle/bony pains, mucositis and N/V though better than with AC. Patient will proceed with post-lumpectomy radiation followed by adjuvant hormonal therapy with aromatase inhibitor. She has undergone the CT simulation but has not yet started radiation. The patient now presents with worsening shortness of breath over the weekend with dyspnea on exertion. She states that she feels that her breath is getting "cut off" and does endorse pleuritic chest pain. She states that she feels her throat is tightening but then opens back up intermittently. No new medications. She also has an intermittent headache. She states the SOB occurs every 20-30 minutes during the day especially if she walks, but not if she is sleeping. She has also had a dry cough x 4 days. No fevers. She has had bronchitis twice before. In addition, she has had R>L LE and RUE edema x 1 week. Past Medical History Medical History: no pertinent history Family History Significant Family History: cancer (Maternal aunt with metastatic cancer to the spleen and brain of unknown primary, maternal uncle had liver cancer in late 50's, maternal first cousin once removed had breast cancer in her 20's, paternal aunt had unknown type of cancer) Social History Alcohol Use: occasionally Smoking Status: Never smoker Exam/Review of Systems Vital Signs Vitals Vital Signs Date Time Temp Pulse Resp B/P Pulse Ox O2 Delivery O2 Flow Rate FiO2 08/04/16 12:30 89 08/04/16 11:44 98.4 17 132/69 97 08/04/16 04:00 Room Air 08/04/16 00:36 3.0 Intake and Output 08/03/16 08/03/16 08/04/16 15:00 23:00 07:00 Intake Total 150 ml Balance 150 ml Exam Constitutional: alert, oriented Head: normocephalic Neck: supple Respiratory: clear to auscultation Cardiovascular: other (tachycardic, regular rhythm) Gastrointestinal: non-tender, soft Musculoskeletal: swelling 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 Results Result Diagram: 5/23/17 0722 5/23/17 0722 Results 24 hrs Laboratory Tests Test 08/03/16 21:46 08/03/16 23:45 08/04/16 02:45 08/04/16 07:22 White Blood Count 8.9 5.4 # Red Blood Count 3.20 L 3.19 L Hemoglobin 8.9 L 8.9 L Hematocrit 28.4 L 28.4 L Mean Corpuscular Volume 88.8 89.0 Mean Corpuscular Hemoglobin 27.8 L 27.9 L Mean Corpuscular Hemoglobin Concent 31.3 L 31.3 L Red Cell Distribution Width 17.3 H 17.4 H Platelet Count 226 # 218 Mean Platelet Volume 11.3 H 11.6 H Neutrophils % 82.4 H 76.0 Lymphocytes % 7.7 L 9.6 L Monocytes % 7.5 11.4 H Eosinophils % 1.1 1.3 Basophils % 0.2 0.4 Nucleated Red Blood Cells % 0.0 0.0 Neutrophils # 7.4 4.1 Lymphocytes # 0.7 L 0.5 L Monocytes # 0.7 0.6 Eosinophils # 0.1 0.1 Basophils # 0.0 0.0 Nucleated Red Blood Cells # 0.0 0.0 Prothrombin Time 13.0 Prothrombin Time Ratio 1.0 INR International Normalized Ratio 0.98 Activated Partial Thromboplast Time 28.9 Sodium Level 139 139 Potassium Level 3.7 4.0 Chloride Level 105 108 Carbon Dioxide Level 26 26 Anion Gap 12 9 Blood Urea Nitrogen 10 10 Creatinine 0.80 0.70 Glucose Level 181 113 # Lactic Acid Level 1.8 0.9 1.2 Calcium Level 9.1 9.3 Troponin I 0.044 0.040 B-Type Natriuretic Peptide 65 Creatine Kinase 230 H Creatine Kinase Index 0.5 Creatinine Kinase MB (Mass) 1.09 Test 08/04/16 10:08 Creatine Kinase 189 Creatine Kinase Index 0.6 Creatinine Kinase MB (Mass) 1.04 Troponin I 0.028 Medications Medications Current Medications Pantoprazole 40 mg 40 mg DAILY@06 IV Last administered on 08/04/16 07:05; Admin Dose 40 MG; Start 08/04/16 at 06:00 Dextrose/Sodium Chloride (D5-1/2ns) 1,000 ml @ 50 mls/hr Q20H IV Last administered on 08/04/16 07:06; Admin Dose 50 MLS/HR; Start 08/04/16 at 05:00 Cholecalciferol (Vitamin D) 1,000 unit DAILY PO Last administered on 08/04/16 09:29; Admin Dose 1,000 UNIT; Start 08/04/16 at 09:00 Docusate Sodium (Colace) 100 mg BID PO Last administered on 08/04/16 09:27; Admin Dose 100 MG; Start 08/04/16 at 09:00 Ferrous Sulfate (Ferrous Sulfate (Ec)) 325 mg DAILY PO Last administered on 09:27; Admin Dose 325 MG; Start 08/04/16 at 09:00 Acetaminophen/ Hydrocodone Bitart ([place] (5/325)) 1 tab Q6H PRN PO PAIN Last administered on 08/04/16 11:23; Admin Dose 1 TAB; Start 08/04/16 at 05:00 Lactulose (Enulose) 10 gm Q8 PRN PO PRN; Start 08/04/16 at 05:00 Lorazepam (Ativan) 0.5 mg Q8H PRN PO ANXIETY; Start 08/04/16 at 05:00 Multivitamins Therapeutic (Theragran) 1 tab DAILY PO Last administered on 09:28; Admin Dose 1 TAB; Start 08/04/16 at 09:00 Ondansetron HCl (Zofran Tab) 8 mg Q8 PRN PO NAUSEA AND/OR VOMITING; Start 08/04 at 05:00 Tramadol HCl (Ultram) 50 mg Q6H PRN PO PAIN; Start 08/04/16 at 05:00 Prochlorperazine (Compazine) 10 mg TID PO Last administered on 08/04/16 13:30 ; Admin Dose 10 MG; Start 08/04/16 at 09:00 SERGEY BOWSER MD August 04, 2016 16:11
--- NOTE | 2016-08-04 17:27 | QN ---
Documentation Comment [id number] FAIZA MEJIA MD August 04, 2016 17:27
--- NOTE | 2016-08-04 18:26 | RADRPT ---
PROCEDURE: US bilateral upper extremity veins. CLINICAL INDICATION: Bilateral upper extremity pain and swelling. TECHNIQUE: Multiple longitudinal and transverse images of the bilateral upper extremity venous deangelo e was obtained with guthrie scale and color Doppler imaging. COMPARISON: None available FINDINGS: The internal jugular, axillary, brachial, basilic, cephalic, radial, and ulnar veins are patent bila terally. There is normal flow with augmentation and compressibility throughout. There is no thrombu s or occlusion. The right subclavian vein is not seen due to an overlying dressing. The left subclavian vein is nor mal. IMPRESSION: 1. Right subclavian vein not visualized due to overlying dressing. 2. Otherwise normal venous system of the upper extremities. No evidence of thrombus or occlusion. RPTAT: QQ .Sujit Samuels MD, Date Time Electronically viewed and signed by .Sujit Samuels MD, on 08/04/2016 18:25 .R/
--- NOTE | 2016-08-04 20:13 | HP ---
DATE OF ADMISSION: 08/04/2016 HISTORY OF PRESENT ILLNESS: Esthela Powers is a 46-year-old female who presented to this hospital complaining of short of breath, cough. Patient claims that she had chemotherapy 2 weeks ago and __ ___ she is developing some cough and short of breath when coughing, but denies any fever and chills or any pleuritic pain. The patient had a CT chest that shows right-sided Port-A-Cath is stable. Th e patient also had an ultrasound of the lower extremity, no evidence of deep venous thrombosis. The patient also had a chest thorax CT scan that shows no evidence of pulmonary embolism or aortic diss ection, mild cardiomegaly and small pericardial effusion, mild bibasilar atelectasis, fatty infiltra tion of the liver, old granulomatous disease. The patient is being admitted for further management. PAST MEDICAL HISTORY: Positive for patient has nausea, vomiting due chemotherapy. The patient has a partial mastectomy, patient is on chemotherapy. ALLERGIES: NEGATIVE. FAMILY HISTORY: No change. SOCIAL HISTORY: Negative. MEDICATION HISTORY: The patient is on: 1. Vitamin D3. 2. Docusate sodium. 3. Iron sulfate. 4. Hydrocodone. 5. Lactulose. 6. Lorazepam. 7. Reglan. 8. Multiple vitamins. 9. Zofran. 10. Tramadol. REVIEW OF SYSTEMS: HEENT: Unremarkable. RESPIRATORY: As mentioned above. CARDIOVASCULAR: As mentioned above. ABDOMEN: Unremarkable. EXTREMITIES: Unremarkable. PHYSICAL EXAMINATION: GENERAL: The patient is awake, alert. VITAL SIGNS: Pulse 50, blood pressure 92/51. HEAD: Atraumatic, normocephalic. Pupils equal, reactive to light. NECK: Supple. No JVD. LUNGS: Clear. CARDIOVASCULAR: S1, S2 normal. ABDOMEN: Soft, nontender. Bowel sounds present. No palpable mass or hepatosplenomegaly. EXTREMITIES: No cyanosis, clubbing, or edema. CENTRAL NERVOUS SYSTEM: The patient is awake, alert, no deficit. LABORATORY DATA: WBC 5.4, hemoglobin 28.4, sodium 139, potassium 4.0. IMPRESSION: 1. Patient has questionable episode of short of breath. 2. Patient has history of partial mastectomy and chemotherapy. 3. Questionable chest wall pain. 4. Anemia. PLAN: At this point is to follow recommendation. The patient will have 2-D echocardiogram as recom mended. The patient will have DVT prophylaxis. Currently, the patient is on Docusate sodium, iron sulfate and multiple vitamin. The patient is on Lovenox, written. Other recommendations per hemato logy/oncology. Dictated By: FAIZA MEJIA MD BS/NTS Conf#: [id number] DID#: [id number]
[2016-08-04] MEDS: LORAZEPAM 0.5 MG TAB PO PRN (21:52)
[2016-08-05] VITALS (12 sets, daily range): BP systolic 98–132; BP diastolic 49–75; PULSE 79–94; RESP 18–20
[2016-08-05] MEDS: DEXTROSE 5%-0.45% NACL 1,000 ML IV SCH (01:00)
[2016-08-05] MEDS: METOCLOPRAMIDE 10 MG TAB PO SCH ×3 (06:02→17:14)
[2016-08-05] MEDS: PANTOPRAZOLE 40 MG INJ IV SCH (06:02)
[2016-08-05 07:44] LABS: RETICULOCYTE COUNT % 3.6 % (0.5-1.5)
[2016-08-05 07:59] LABS: LACTATE DEHYDROGENASE 748 IU/L (313-618)
[2016-08-05] MEDS: DOCUSATE SODIUM 100 MG CAP PO SCH ×2 (08:12→20:22)
[2016-08-05] MEDS: PROCHLORPERAZINE 10 MG TAB PO SCH ×3 (08:12→20:21)
[2016-08-05] MEDS: FERROUS SULFATE (EC) 325 MG TAB PO SCH (08:13)
[2016-08-05] MEDS: MULTIVITAMINS THERAPEUTIC TAB PO SCH (08:13)
[2016-08-05] MEDS: CHOLECALCIFEROL 1,000 UNIT TAB PO SCH (08:13)
[2016-08-05 08:33] LABS: IRON 32 ug/dl (35-150)
[2016-08-05 08:42] LABS: TOTAL IRON BINDING CAPACITY 285 ug/dl (241-421)
[2016-08-05 09:03] LABS: FOLATE 11.1 ng/ml (2.8-20.0)
--- NOTE | 2016-08-05 12:04 | CONS ---
Date/Time of Note Date/Time of Note DATE: 08/05/16 TIME: 11:59 Assessment/Plan Assessment/Plan Chief Complaint/Hosp Course The patient is a 46 year postmenopausal female (s/p CONCHA/BSO 04/12/15) BRCA negative with left infiltrating ductal carcinoma of the 12 o' clock position ER 10%, SD negative s/p lumpectomy pT2N0 (0/6 LN) 3.4 cm 04/09/16 poorly differentiated, no lymphovascular invasion, negative margins, with Oncotype Dx score 74 indicating high risk of recurrence, who received ddAC (adriamycin/ cylophosphomide) x 3 complicated by N/V requiring admission despite Akynzeo, IV fluids. She declined taxol x 12 and proceeded with a fourth and final cycle of TC (taxotere/cyclophosphomide) on 07/13/16 with some muscle/bony pains, mucositis and N/V though better than with AC. Now presents with SOB/BELL and localizes sensation of breathing getting "cut off" in throat. Unclear etiology - CT PA negative for PE, showed mild cardiomegaly, small pericardial effusion, mild bibasilar atelectasis - LE and UE dopplers negative for DVT - Would suggest an echocardiogram to evaluate pericardial effusion - pending. Additionally, anthracyclines such as adriamycin can cause heart failure though less likely given only received 60 mg/mg2 x 3. Taxotere can cause fluid retention. - Query whether symptoms can be explained by bronchospasm or bronchitis given intermittent upper airway nature of dyspnea and associated cough. Will try empiric doxycycline for bronchitis. Consider pulm consult. - Not likely to be related to breast cancer or chemotherapy. Ok to discharge home from oncology perspective if ok with primary team. # Normocytic anemia, may be related to prior chemotherapy, iron panel suggests anemia of chronic inflammation - Retic count 3.6% inappropriately low for level of anemia, Fe 32, TIBC on lower end of normal at 285, %sat 11, ferritin 177 suggests anemia of chronic inflammation; LDH elevated at 748, haptoglobin pending; B12/folate/TSH WNL, pending homocysteine and methylmalonic acid - Pending peripheral smear review by pathology to evaluate for spherocytes or schistocytes Problems: Consultation Date/Type/Reason Admit Date/Time August 04, 2016 at 02:14 Initial Consult Date 08/04/16 Type of Consultation: Oncology 24 HR Interval Summary Free Text/Dictation Patient still has intermittent shortness of breath but feels ready to go home once workup complete. Exam/Review of Systems Vital Signs Vitals Vital Signs Date Time Temp Pulse Resp B/P Pulse Ox O2 Delivery O2 Flow Rate FiO2 08/05/16 11:56 97.7 86 20 126/70 97 08/04/16 04:00 Room Air 08/04/16 00:36 3.0 Intake and Output 08/04/16 08/04/16 08/05/16 15:00 23:00 07:00 Intake Total 150 ml 1050 ml 500 ml Balance 150 ml 1050 ml 500 ml Exam Constitutional: alert, oriented Head: normocephalic Neck: supple Respiratory: clear to auscultation Cardiovascular: other (tachycardic, regular rhythm) Gastrointestinal: non-tender, soft Musculoskeletal: swelling Neurological: DIRECTOR OF RADIO SERVICES II-XII intact Results Result Diagram: 08/04/1672108/04/16 0722 Results 24 hrs Laboratory Tests Test 08/05/16 07:10 Absolute Reticulocyte Count 0.111 H Percent Reticulocyte Count 3.6 H Iron Level 32 L Total Iron Binding Capacity 285 Percent Iron Saturation 11 L Ferritin 177.0 H Lactate Dehydrogenase 748 H Vitamin B12 Level > 1000 H Folate 11.1 Thyroid Stimulating Hormone (TSH) 2.260 Medications Medications Current Medications Pantoprazole 40 mg 40 mg DAILY@06 IV Last administered on 08/05/16 06:02; Admin Dose 40 MG; Start 08/04/16 at 06:00 Dextrose/Sodium Chloride (D5-1/2ns) 1,000 ml @ 50 mls/hr Q20H IV Last administered on 08/04/16 07:06; Admin Dose 50 MLS/HR; Start 08/04/16 at 05:00 Cholecalciferol (Vitamin D) 1,000 unit DAILY PO Last administered on 08/05/16 08:13; Admin Dose 1,000 UNIT; Start 08/04/16 at 09:00 Docusate Sodium (Colace) 100 mg BID PO Last administered on 08/05/16 08:12; Admin Dose 100 MG; Start 08/04/16 at 09:00 Ferrous Sulfate (Ferrous Sulfate (Ec)) 325 mg DAILY PO Last administered on 08:13; Admin Dose 325 MG; Start 08/04/16 at 09:00 Acetaminophen/ Hydrocodone Bitart ([place] (5/325)) 1 tab Q6H PRN PO PAIN Last administered on 08/04/16 11:23; Admin Dose 1 TAB; Start 08/04/16 at 05:00 Lactulose (Enulose) 10 gm Q8 PRN PO PRN; Start 08/04/16 at 05:00 Lorazepam (Ativan) 0.5 mg Q8H PRN PO ANXIETY Last administered on 08/04/16 21: 52; Admin Dose 0.5 MG; Start 08/04/16 at 05:00 Multivitamins Therapeutic (Theragran) 1 tab DAILY PO Last administered on 08:13; Admin Dose 1 TAB; Start 08/04/16 at 09:00 Ondansetron HCl (Zofran Tab) 8 mg Q8 PRN PO NAUSEA AND/OR VOMITING; Start 08/04 at 05:00 Tramadol HCl (Ultram) 50 mg Q6H PRN PO PAIN; Start 08/04/16 at 05:00 Prochlorperazine (Compazine) 10 mg TID PO Last administered on 08/05/16 08:12 ; Admin Dose 10 MG; Start 08/04/16 at 09:00 Doxycycline Hyclate (Vibramycin) 100 mg BID PO ; Start 08/06/16 at 09:00 SERGEY BOWSER MD August 05, 2016 12:04
[2016-08-05] MEDS: SUCRALFATE 1 GM TAB PO SCH (20:21)
[2016-08-05] MEDS: HYDROCODONE/APAP (5/325) TAB PO PRN (20:30)
[2016-08-05] MEDS: LORAZEPAM 0.5 MG TAB PO PRN (22:40)
--- NOTE | 2016-08-05 23:23 | PN ---
Date/Time of Note Date/Time of Note DATE: 08/05/16 TIME: 23:21 Assessment/Plan VTE Prophylaxis VTE Prophylaxis Intervention: other Lines/Catheters IV Catheter Type (from Nrsg): PORT A CATH Assessment/Plan Chief Complaint/Hosp Course IMPRESSION: 1. Patient has questionable episode of short of breath. 2. Patient has history of partial mastectomy and chemotherapy. 3. Questionable chest wall pain. 4. Anemia. 5 dyspepsia plan ck echo ugi series Problems: Subjective 24 Hr Interval Summary Respiratory: No pleuritic pain Cardiovascular: no complaints Exam/Review of Systems Vital Signs Vitals Vital Signs Date Time Temp Pulse Resp B/P Pulse Ox O2 Delivery O2 Flow Rate FiO2 08/05/16 20:02 94 08/05/16 19:56 98.3 18 130/59 97 08/04/16 04:00 Room Air 08/04/16 00:36 3.0 Intake and Output 08/04/16 08/04/16 08/05/16 15:00 23:00 07:00 Intake Total 150 ml 1050 ml 500 ml Balance 150 ml 1050 ml 500 ml Exam Respiratory: clear to auscultation Cardiovascular: regular rate and rhythm Gastrointestinal: soft Musculoskeletal: nl extremities to inspection Results Result Diagram: 08/04/1622 08/04/16 0722 Results 24 hrs Laboratory Tests Test 08/05/16 07:10 Absolute Reticulocyte Count 0.111 H Percent Reticulocyte Count 3.6 H Iron Level 32 L Total Iron Binding Capacity 285 Percent Iron Saturation 11 L Ferritin 177.0 H Lactate Dehydrogenase 748 H Vitamin B12 Level > 1000 H Folate 11.1 Thyroid Stimulating Hormone (TSH) 2.260 Medications Medications Current Medications Cholecalciferol (Vitamin D) 1,000 unit DAILY PO Last administered on 08/05/16 08:13; Admin Dose 1,000 UNIT; Start 08/04/16 at 09:00 Docusate Sodium (Colace) 100 mg BID PO Last administered on 08/05/16 20:22; Admin Dose 100 MG; Start 08/04/16 at 09:00 Ferrous Sulfate (Ferrous Sulfate (Ec)) 325 mg DAILY PO Last administered on 08:13; Admin Dose 325 MG; Start 08/04/16 at 09:00 Acetaminophen/ Hydrocodone Bitart ([place] (5/325)) 1 tab Q6H PRN PO PAIN Last administered on 08/05/16 20:30; Admin Dose 1 TAB; Start 08/04/16 at 05:00 Lactulose (Enulose) 10 gm Q8 PRN PO PRN; Start 08/04/16 at 05:00 Lorazepam (Ativan) 0.5 mg Q8H PRN PO ANXIETY Last administered on 08/05/16 22: 40; Admin Dose 0.5 MG; Start 08/04/16 at 05:00 Multivitamins Therapeutic (Theragran) 1 tab DAILY PO Last administered on 08:13; Admin Dose 1 TAB; Start 08/04/16 at 09:00 Ondansetron HCl (Zofran Tab) 8 mg Q8 PRN PO NAUSEA AND/OR VOMITING; Start 08/04 at 05:00 Tramadol HCl (Ultram) 50 mg Q6H PRN PO PAIN; Start 08/04/16 at 05:00 Prochlorperazine (Compazine) 10 mg TID PO Last administered on 08/05/16 20:21 ; Admin Dose 10 MG; Start 08/04/16 at 09:00 Doxycycline Hyclate (Vibramycin) 100 mg BID PO ; Start 08/06/16 at 09:00 Pantoprazole (Protonix Tab) 40 mg DAILY@06 PO ; Start 08/06/16 at 06:00 Sucralfate (Carafate) 1 gm TID PO Last administered on 08/05/16 20:21; Admin Dose 1 GM; Start 08/05/16 at 21:00 FAIZA MEJIA MD August 05, 2016 23:23
[2016-08-06] VITALS (10 sets, daily range): BP systolic 97–161; BP diastolic 51–79; PULSE 76–109; RESP 18–19
[2016-08-06] MEDS ORDERED: PANTOPRAZOLE (EC) 40 MG TAB PO SCH (06:00)
[2016-08-06] MEDS: METOCLOPRAMIDE 10 MG TAB PO SCH ×2 (06:33→12:16)
[2016-08-06] MEDS ORDERED: BARIUM SULFATE 135 ML (E-Z HD) PO ONE (08:48)
[2016-08-06] MEDS: DOCUSATE SODIUM 100 MG CAP PO SCH (08:57)
[2016-08-06] MEDS: FERROUS SULFATE (EC) 325 MG TAB PO SCH (08:57)
[2016-08-06] MEDS: PROCHLORPERAZINE 10 MG TAB PO SCH ×2 (08:57→12:15)
[2016-08-06] MEDS: SUCRALFATE 1 GM TAB PO SCH ×2 (08:57→12:15)
[2016-08-06] MEDS: CHOLECALCIFEROL 1,000 UNIT TAB PO SCH (08:58)
[2016-08-06] MEDS: MULTIVITAMINS THERAPEUTIC TAB PO SCH (08:58)
[2016-08-06] MEDS ORDERED: DOXYCYCLINE 100 MG TAB PO SCH (09:00)
--- NOTE | 2016-08-06 09:34 | CONS ---
Date/Time of Note Date/Time of Note DATE: 08/06/16 TIME: 09:32 Assessment/Plan Assessment/Plan Chief Complaint/Hosp Course The patient is a 46 year postmenopausal female (s/p CONCHA/BSO 04/12/15) BRCA negative with left infiltrating ductal carcinoma of the 12 o' clock position ER 10%, VA negative s/p lumpectomy pT2N0 (0/6 LN) 3.4 cm 04/09/16 poorly differentiated, no lymphovascular invasion, negative margins, with Oncotype Dx score 74 indicating high risk of recurrence, who received ddAC (adriamycin/ cylophosphomide) x 3 complicated by N/V requiring admission despite Akynzeo, IV fluids. She declined taxol x 12 and proceeded with a fourth and final cycle of TC (taxotere/cyclophosphomide) on 07/13/16 with some muscle/bony pains, mucositis and N/V though better than with AC. Now presents with SOB/BELL and localizes sensation of breathing getting "cut off" in throat. Unclear etiology - CT PA negative for PE, showed mild cardiomegaly, small pericardial effusion, mild bibasilar atelectasis - LE and UE dopplers negative for DVT - Would suggest an echocardiogram to evaluate pericardial effusion - pending read. Additionally, anthracyclines such as adriamycin can cause heart failure though less likely given only received 60 mg/mg2 x 3. Taxotere can cause fluid retention. - Query whether symptoms can be explained by bronchospasm or bronchitis given intermittent upper airway nature of dyspnea and associated cough. Will try empiric doxycycline for bronchitis. - Pending upper GI series per Dr. Solomon - Not likely to be related to breast cancer or chemotherapy. Ok to discharge home from oncology perspective if ok with primary team. # Normocytic anemia, may be related to prior chemotherapy, iron panel suggests anemia of chronic inflammation - Retic count 3.6% inappropriately low for level of anemia, Fe 32, TIBC on lower end of normal at 285, %sat 11, ferritin 177 suggests anemia of chronic inflammation; LDH elevated at 748, haptoglobin pending; B12/folate/TSH WNL, pending homocysteine and methylmalonic acid - Pending peripheral smear review by pathology to evaluate for spherocytes or schistocytes Problems: Consultation Date/Type/Reason Admit Date/Time August 04, 2016 at 02:14 Initial Consult Date 08/04/16 Type of Consultation: Oncology 24 HR Interval Summary Free Text/Dictation Patient still has intermittent dyspnea but states "episodes slowing down." Exam/Review of Systems Vital Signs Vitals Vital Signs Date Time Temp Pulse Resp B/P Pulse Ox O2 Delivery O2 Flow Rate FiO2 08/06/16 08:03 77 08/06/16 07:40 98.3 18 116/56 95 08/04/16 04:00 Room Air 08/04/16 00:36 3.0 Intake and Output 08/05/16 08/05/16 08/06/16 15:00 23:00 07:00 Intake Total 960 ml 250 ml Balance 960 ml 250 ml Exam Constitutional: alert, oriented Head: normocephalic Neck: supple Respiratory: clear to auscultation Cardiovascular: other (tachycardic, regular rhythm) Gastrointestinal: non-tender, soft Musculoskeletal: swelling Neurological: FURNISHINGS CONSERVATOR II-XII intact Results Result Diagram: 08/04/1672108/04/16721 Medications Medications Current Medications Cholecalciferol (Vitamin D) 1,000 unit DAILY PO Last administered on 08/05/16 08:13; Admin Dose 1,000 UNIT; Start 08/04/16 at 09:00 Docusate Sodium (Colace) 100 mg BID PO Last administered on 08/05/16 20:22; Admin Dose 100 MG; Start 08/04/16 at 09:00 Ferrous Sulfate (Ferrous Sulfate (Ec)) 325 mg DAILY PO Last administered on 08:13; Admin Dose 325 MG; Start 08/04/16 at 09:00 Acetaminophen/ Hydrocodone Bitart ([place] (5/325)) 1 tab Q6H PRN PO PAIN Last administered on 08/05/16 20:30; Admin Dose 1 TAB; Start 08/04/16 at 05:00 Lactulose (Enulose) 10 gm Q8 PRN PO PRN; Start 08/04/16 at 05:00 Lorazepam (Ativan) 0.5 mg Q8H PRN PO ANXIETY Last administered on 08/05/16 22: 40; Admin Dose 0.5 MG; Start 08/04/16 at 05:00 Multivitamins Therapeutic (Theragran) 1 tab DAILY PO Last administered on 08:13; Admin Dose 1 TAB; Start 08/04/16 at 09:00 Ondansetron HCl (Zofran Tab) 8 mg Q8 PRN PO NAUSEA AND/OR VOMITING; Start 08/04 at 05:00 Tramadol HCl (Ultram) 50 mg Q6H PRN PO PAIN; Start 08/04/16 at 05:00 Prochlorperazine (Compazine) 10 mg TID PO Last administered on 08/05/16 20:21 ; Admin Dose 10 MG; Start 08/04/16 at 09:00 Doxycycline Hyclate (Vibramycin) 100 mg BID PO ; Start 08/06/16 at 09:00 Pantoprazole (Protonix Tab) 40 mg DAILY@06 PO Last administered on 08/06/16 06 :33; Admin Dose 40 MG; Start 08/06/16 at 06:00 Sucralfate (Carafate) 1 gm TID PO Last administered on 08/05/16 20:21; Admin Dose 1 GM; Start 08/05/16 at 21:00 TOSERGEY MD August 06, 2016 09:34
--- NOTE | 2016-08-06 13:58 | RADRPT ---
PROCEDURE: Upper GI series. CLINICAL INDICATION: Abdomen pain. TECHNIQUE: Barium and gas granules were administered orally and several spot and overhead radiogra phs were obtained. A total of 0.2 minutes of fluoroscopy time was used. COMPARISON: No prior study is available for comparison. FINDINGS: On the preliminary radiograph, a right internal jugular vein Port-A-Cath is noted in satisfactory po sition. There is mild left basilar atelectasis. The lungs are otherwise clear. There is no aspiration during swallowing. Esophageal motility is normal. There is no esophageal mass, ulcer, or stricture. There is no gastroesophageal reflux. The stomach and duodenum are normal with no ulceration, mass, or mucosal abnormality. IMPRESSION: 1. Right IJ Port-A-Cath in satisfactory position. 2. Mild left basilar atelectasis. 3. Otherwise normal upper GI series. RPTAT: QQ .Sujit Samuels MD, Date Time Electronically viewed and signed by .Sujit Samuels MD, on 08/06/2016 13:58 .R/
--- NOTE | 2016-08-06 16:40 | PDOCDIS ---
Discharge Instructions CONDITION Patient Condition: Stable ACTIVITY: Activity Restrictions: Slowly Increase Activity FOLLOW UP/APPOINTMENTS Appointments f/u own pcp 1 wk see TO 1 wk FAIZA MEJIA MD August 06, 2016 16:40
[2016-08-06] MEDS ORDERED: PANT40TA4 PO (16:42)
[2016-08-06] MEDS ORDERED: METO10TA96 PO (16:42)
[2016-08-06] MEDS ORDERED: SUCR1TAB27 PO (16:42)
[2016-08-06] MEDS ORDERED: DOXY100T2 PO (16:42)
[2016-08-06 18:30] LABS: HOMOCYSTEINE - CARDIOVASCULAR 6.9 umol/L (<10.4)
--- NOTE | 2016-08-06 20:50 | RADRPT ---
Echocardiogram Report Patient Name: KEZIA WHATLEY Gender: Female Date: 1970 Study Date: 05-Aug-2016 Hse Specialist: Gennaro [facility] Location: 5537 Ref. Physician: FAIZA MEJIA Quality: Adequate Procedures: Transthoracic echocardiogram examination. Indications: Evaluate Cardiac Function. 2D/M Mode Doppler Measurement Value Normal Range Measurement Value Normal Range LVIDd 2D 5.0 3.5 - 5.6 cm LVIDs 2D 3.2 2.1 - 4.1 cm LVPWd 2D 1.2 0.6 - 1.1 cm IVSd 2D 1.1 0.6 - 1.1 cm AoR Diam 2D 2.2 2.0 - 3.7 cm EDV 2D 120.7 cm3 ESV 2D 33.9 cm3 LA Dimen 2D 3.8 2.3 - 4.0 cm Findings Left Ventricle: Lower limits of normal left ventricular systolic function. Tissue Doppler/Mitral Doppler indices are consistent with impaired relaxation (Stage I diastolic dysfunction). Upper limits of the left ventricular wall thickness. The left ventricular ejection fraction is visually estimated at 50 - 55 %. Right Ventricle: Normal right ventricular size. Left Atrium: The left atrium is normal in size and appearance. Right Atrium: The right atrium is normal in size and appearance. Mitral Valve: Anterior mitral valve leaflet appear mildly thickened. Posterior mitral valve leaflet appear mildly thickened. Trivial mitral regurgitation. Aortic Valve: Normal appearance and function of the aortic valve. Tricuspid Valve: There is trivial tricuspid regurgitation. Pulmonic Valve: Normal pulmonic valve appearance and function with trivial (physiologic) regurgitation. Pericardium: Trivial effusion. Aorta: Normal aortic root. IVC: Normal inferior vena cava appearance and respiratory collapse. Conclusions 1.Lower limits of normal left ventricular systolic function. Tissue Doppler/Mitral Doppler indices are consistent with impaired relaxation (Stage I diastolic dysfunction). Upper limits of the left ventricular wall thickness. The left ventricular ejection fraction is visually estimated at 50 - 55 %. 2.Anterior mitral valve leaflet appear mildly thickened. Posterior mitral valve leaflet appear mildly thickened. Trivial mitral regurgitation. 3.There is trivial tricuspid regurgitation. 4.Normal pulmonic valve appearance and function with trivial (physiologic) regurgitation. 5.Trivial effusion. Electronically Signed By: Terence Saleem 06-Aug-2016 20:49:09 -0700 Patient Name: KEZIA WHATLEY Study Date: 05-Aug-2016 [id number]
== END 2016-08-06 16:35 | disposition home or self-care (01) | DRG 204 ==
LOC: E/R 20:42 → MS4 08-04 02:14
PROVIDERS: ADMIT Internal Medicine Nephrology; ATTEND Internal Medicine Nephrology
DX: R07.1 Chest pain on breathing (principal); C50.919 Malignant neoplasm of unspecified site of unspecified female breast; D64.81 Anemia due to antineoplastic chemotherapy; R06.02 Shortness of breath; R10.13 Epigastric pain; M79.89 Other specified soft tissue disorders; Z80.8 Family history of malignant neoplasm of other organs or systems
CPT/HCPCS: 71010; 71275; 74240; 80048; 82550; 82553; 82607; 82728; 82746; 83010; 83090; 83540; 83605; 83615; 83880; 83921; 84443; 84484; 85025; 85045; 85610; 85730; 87040; 87081; 93005; 93306; 93308; 93970; 96374; C9113; J1200; J7042; Q9967

== ENCOUNTER 2017-02-05 09:54 | Emergency (ER) | payer SELFPAY ==
[~2017-02-05] VITALS: Wt 111.5 kg
[~2017-02-05 09:54] MED LIST changes: +CHOL100062 PO; +DOCU100T PO; +DOXY100T2 PO; +FER325 PO; +HYDR-906 PO; -METO10TA92 PO; +METO10TA96 PO; +MULTI PO; -PANT40TA3 PO; +PANT40TA4 PO; -POLY17PO6 PO; +PROC10TA10 PO; +SUCR1TAB27 PO; +TRAM-40 PO
[2017-02-05] MEDS ORDERED: KETOROLAC 15 MG INJ IV STA (11:11)
[2017-02-05 12:18] LABS: BASOPHILS % 0.7 % (0.0-2.0); EOSINOPHILS # 0.1 10^3/ul (0.0-0.5); EOSINOPHILS % 1.3 % (0.0-7.0); HEMATOCRIT 35.8 % (37.0-47.0); HEMOGLOBIN 11.5 g/dl (12.0-16.0); LYMPHOCYTES # 0.8 10^3/ul (0.8-2.9); LYMPHOCYTES % 17.4 % (15.0-51.0); MEAN CORPUSCULAR HEMOGLOBIN 28.3 pg (29.0-33.0); MEAN CORPUSCULAR HGB CONC 32.1 g/dl (32.0-37.0); MEAN CORPUSCULAR VOLUME 88.2 fl (82.0-101.0); MEAN PLATELET VOLUME 12.6 fl (7.4-10.4); MONOCYTE # 0.5 10^3/ul (0.3-0.9); MONOCYTES % 10.8 % (0.0-11.0); NEUTROPHIL # 3.1 10^3/ul (1.6-7.5); NEUTROPHILS % 68.9 % (39.0-77.0); PLATELET COUNT 206 10^3/UL (140-415); RED BLOOD COUNT 4.06 10^6/ul (4.20-5.40); RED CELL DISTRIBUTION WIDTH 14.8 % (11.5-14.5); WHITE BLOOD COUNT 4.5 10^3/ul (4.8-10.8)
[2017-02-05 12:44] LABS: ALBUMIN 4.3 g/dl (3.3-4.9); ALBUMIN/GLOBULIN RATIO 1.38; BILIRUBIN,INDIRECT 0.1 mg/dl (0-1.1); BILIRUBIN,TOTAL 0.1 mg/dl (0.2-1.3); CALCIUM 9.6 mg/dl (8.4-10.2); CREATININE 0.84 mg/dl (0.44-1.00); POTASSIUM 4.1 mmol/L (3.5-5.1); TOTAL PROTEIN 7.4 g/dl (6.1-8.1)
--- NOTE | 2017-02-05 13:21 | RADRPT ---
PROCEDURE: Left breast ultrasound. CLINICAL INDICATION: Evaluate for abscess TECHNIQUE: Left whole breast, 4 quadrant and retroareolar, and axillary sonography was performed. COMPARISON: None FINDINGS: No solid or suspicious masses. No malignant adenopathy. There are scattered subcentimeter cysts. IMPRESSION: 1. No sonographic findings of malignancy in the left breast. No sonographic evidence of fluid arnel ection or abscess. 2. Recommend the patient return for routine annual screening mammogram unless there are new clinica l findings in the interim. BI-RADS 2: BENIGN RPTAT: EE Physician Mian Date Time Electronically viewed and signed by Physician Mian on 02/05/2017 13:20 /
--- NOTE | 2017-02-05 14:03 | ERD ---
ER Documentation Chief Complaint Chief Complaint PAIN ON PORT-A-CATH INSERTION SITE X5 MONTHS, PAIN ON LEFT BREAST HPI 46-year-old female complains of pain in her left breast and right chest wall. History significant for breast cancer with surgery, radiation and chemotherapy. She is pain at the Port-A-Cath site as well as some mild diffuse pain in the left breast. She did have a history of radiation johns although most of those improve. ROS All systems reviewed and are negative except as per history of present illness. Medications Home Meds Active Scripts Sucralfate (Carafate) 1 Gm Tablet, 1 GM PO TID for 28 Days, TAB Prov:FAIZA MEJIA MD 08/06/16 Pantoprazole* (Pantoprazole*) 40 Mg Tablet.dr, 40 MG PO DAILY@06 for 28 Days Prov:FAIZA MEJIA MD 08/06/16 Metoclopramide Hcl* (Metoclopramide Hcl*) 10 Mg Tablet, 10 MG PO AC MEALS for 28 Days, TAB Prov:FAIZA MEJIA MD 08/06/16 Doxycycline* (Vibramycin*) 100 Mg Tab, 100 MG PO BID for 7 Days, TAB Prov:FAIZA MEJIA MD 08/06/16 Lorazepam* (Ativan*) 0.5 Mg Tablet, 0.5 MG PO Q8H Y for ANXIETY for 10 Days, TAB Prov:FAIZA MEJIA MD 06/16/16 Reported Medications Hydrocodone/Acetaminophen (Balko 5-325 Tablet) 1 Each Tablet, 1 EACH PO Q6H for PAIN, TAB 08/03/16 Cholecalciferol* (Vitamin D3*) 1,000 Unit Tablet, 1000 UNIT PO DAILY, TAB 08/03/16 Ferrous Sulfate* (Ferrous Sulfate*) 325 Mg Tabec, 325 MG PO DAILY, TAB 08/03/16 Multivitamins* (Theragran*) 1 Tab Tab, 1 TAB PO DAILY, TAB 08/03/16 Docusate Sodium* (Dok*) 100 Mg Tablet, 100 MG PO BID, #60 CAP 08/03/16 Prochlorperazine* (Prochlorperazine*) 10 Mg Tablet, 10 MG PO TID for NAUSEA AND/ OR VOMITING, TAB 08/03/16 Tramadol Hcl* (Ultram*) 50 Mg Tablet, 50 MG PO Q6H Y for PAIN, TAB 08/03/16 Lactulose* (Lactulose*) 10 Gm/15 Ml Solution, 10 GM PO Q8 Y for PRN, ML 06/25/16 Ondansetron Hcl* (Zofran*) 8 Mg Tablet, 8 MG PO Q8 Y for NAUSEA AND OR VOMITING , TAB 06/13/16 Allergies Allergies: Coded Allergies: No Known Allergies (Verified Allergy, Unknown, 08/04/16) PMhx/Soc History of Surgery: No Anesthesia Reaction: No Hx Neurological Disorder: No Hx Respiratory Disorders: No Hx Cardiac Disorders: No Hx Psychiatric Problems: No Hx Miscellaneous Medical Probl: No Hx Alcohol Use: No Hx Substance Use: No Hx Tobacco Use: No Smoking Status: Never smoker Physical Exam Vitals Vital Signs Date Time Temp Pulse Resp B/P Pulse Ox O2 Delivery O2 Flow Rate FiO2 02/05/17 09:58 97.8 76 17 134/80 98 Physical Exam Const: [], [id number]. Head: Atraumatic Eyes: Normal Conjunctiva ENT: Normal External Ears, Nose and Mouth. Neck: Full range of motion..~ No meningismus. Resp: Clear to auscultation bilaterally Cardio: Regular rate and rhythm, no murmurs Abd: Soft, non tender, non distended. Normal bowel sounds Skin: No petechiae or rashes. There is some mild tenderness and irritation over the left breast. There is no significant warmth or erythema. There is some possible fluctuance at 9:00. There is some tenderness over the right Port- A-Cath without erythema, fluctuance, skin changes. Back: No midline or flank tenderness Ext: No cyanosis, or edema Neur: Awake and alert Psych: Normal Mood and Affect Result Diagram: 02/05/17 1205 02/05/17 1205 Results 24 hrs Laboratory Tests Test 02/05/17 12:05 White Blood Count 4.510^3/ul Red Blood Count 4.0610^6/ul Hemoglobin 11.5g/dl Hematocrit 35.8% Mean Corpuscular Volume 88.2fl Mean Corpuscular Hemoglobin 28.3pg Mean Corpuscular Hemoglobin Concent 32.1g/dl Red Cell Distribution Width 14.8% Platelet Count 08975^3/UL Mean Platelet Volume 12.6fl Neutrophils % 68.9% Lymphocytes % 17.4% Monocytes % 10.8% Eosinophils % 1.3% Basophils % 0.7% Nucleated Red Blood Cells % 0.0/100WBC Neutrophils # 3.110^3/ul Lymphocytes # 0.810^3/ul Monocytes # 0.510^3/ul Eosinophils # 0.110^3/ul Basophils # 0.010^3/ul Nucleated Red Blood Cells # 0.010^3/ul Sodium Level 143mmol/L Potassium Level 4.1mmol/L Chloride Level 104mmol/L Carbon Dioxide Level 27mmol/L Anion Gap 16 Blood Urea Nitrogen 14mg/dl Creatinine 0.84mg/dl Glucose Level 99mg/dl Calcium Level 9.6mg/dl Total Bilirubin 0.1mg/dl Direct Bilirubin 0.00mg/dl Indirect Bilirubin 0.1mg/dl Aspartate Amino Transf (AST/SGOT) 32IU/L Alanine Aminotransferase (ALT/SGPT) 53IU/L Alkaline Phosphatase 99IU/L Total Protein 7.4g/dl Albumin 4.3g/dl Globulin 3.10g/dl Albumin/Globulin Ratio 1.38 Current Medications Medications (Trade) Dose Ordered Sig/Liset Route PRN Reason Start Time Stop Time Status Last Admin Dose Admin Ketorolac Tromethamine (Toradol) 15 mg ONCE STAT IV 02/05/17 11:11 02/05/17 11:13 DC 02/05/17 12:05 Heparin Sodium (Porcine) (Heparin Flush (10 Units/ml)) 10 unit ONCE CATHETER 02/05/17 14:00 Procedures/MDM Port-A-Cath was accessed and flushed. CBC and CMP show no acute abnormalities or leukocytosis. There is no neutropenia. Left breast ultrasound shows no evidence of masses or fluid collection or abscess. Patient is given Toradol 30 g IV. Patient was stable throughout the ED course and Port-A-Cath was flushed. Patient has left breast pain where she had breast surgery without evidence of significant signs of infection, abscess or acute abnormalities. Patient declined any medication for pain at home. She is advised to apply warm compresses, compression follow-up with oncology. Apparently her oncologist is on leave and she is waiting for a new intake appointment in the same group. She is advised to return for shortness breath, fevers, new worsening symptoms otherwise with oncology and primary care as directed. The patient was stable with no new complaints during the ER course. Clinically, there is no current evidence to suggest meningitis, sepsis, acute abdomen, pneumonia, acute coronary syndrome, pulmonary embolism, or any other emergent condition appearing to require further evaluation or hospitalization. The patient should certainly return for any new or worsening symptoms per the aftercare instructions. They should otherwise follow-up with her primary care doctor for reevaluation this week. Departure Diagnosis: Primary Impression: Radiation burn Additional Impression: Post-op pain Condition: Stable Patient Instructions: Pain, Uncertain Cause (Acute) Additional Instructions: His ultrasound showed no acute abnormalities. See oncology for further evaluation treatment. Recheck otherwise for worsening redness, fevers, new or worsening symptoms. Okay to take Tylenol or ibuprofen for pain. CINDY CORNELIUS MD Feb 05, 2017 14:03
[2017-02-05] MEDS ORDERED: HEPARIN (100 UNITS/ML) 5 ML SYG IV SCH (14:30)
[2017-02-05 14:45] VITALS: BP 112/75; PULSE 63; RESP 16; TEMP 97.8
== END 2017-02-05 14:47 | disposition home or self-care (01) ==
LOC: FTE 09:54
DX: T66.XXXA Radiation sickness, unspecified, initial encounter (principal); G89.18 Other acute postprocedural pain; Z85.3 Personal history of malignant neoplasm of breast
CPT/HCPCS: 76642; 80053; 85025; J1642; J1885; 36415; 96374; 96375

== ENCOUNTER 2017-04-03 12:31 | Emergency (ER) | END 2017-04-03 15:16 | disposition home or self-care (01) ==